=== PATIENT | female | born 1995 | race Caucasian/White ===

== ENCOUNTER → 2017-05-07 10:40 | Outpatient (CLI) | payer MEDICAID, SELFPAY ==
--- NOTE | 2017-05-07 10:45 | US_ITS ---
US transvaginal COMPARISON: None HISTORY: Bilateral pelvic pain for 9 years ,. abnormal cycles TECHNIQUE: Transvaginal ultrasound FINDINGS: The uterus is normal size and shows homogeneous echogenicity. The endometrial echo appears normal. Both ovaries are normal size showing homogeneous echogenicity. There is a moderately large amount of cul-de-sac fluid, possibly there has been a recently ruptured ovarian cyst. IMPRESSION: Cul-de-sac fluid is noted, no other significant pathology noted.
== END ==
PROVIDERS: Family Provider Nurse Practitioner; PCP Nurse Practitioner; Visit Provider Nurse Practitioner Obstetrics & Gynecology
DX: R10.2 Pelvic and perineal pain (principal)
CPT/HCPCS: 76830

== ENCOUNTER → 2018-01-18 13:46 | Outpatient (CLI) | payer MEDICAID, SELFPAY ==
--- NOTE | 2018-01-18 13:54 | XR_ITS ---
XR scoliosis survey CLINICAL INDICATION: ITS.REASON: KYPHOSIS, SCOLIOSIS, BACK PAIN ORDERING PHYSICIAN: Estella Thomas PATIENT AGE: 22 years Comparison: 10/22/2015 FINDINGS: There is a mid upper thoracic scoliosis convex right which measures 17 degrees previously measuring 11 degrees. There is a thoracolumbar curvature convex left measuring 20 degrees previously measuring 7 degrees. No obvious congenital anomalies evident. IMPRESSION: Thoracolumbar scoliosis as described above is slightly worse
== END ==
PROVIDERS: PCP Nurse Practitioner; Visit Provider Nurse Practitioner
DX: M40.209 Unspecified kyphosis, site unspecified (principal); M41.9 Scoliosis, unspecified; M54.9 Dorsalgia, unspecified; M25.561 Pain in right knee; G89.29 Other chronic pain
CPT/HCPCS: 72081

== ENCOUNTER 2018-03-29 14:30 | Outpatient (RCR) | payer MEDICAID, SELFPAY | END 2018-03-29 14:40 | disposition home or self-care (01) | LOC: PT 14:30 | PROVIDERS: Visit Provider Physician Assistant Medical | DX: M41.9 Scoliosis, unspecified (principal); M54.6 Pain in thoracic spine | CPT/HCPCS: 97014; 97016; 97033; 97035; 97110; 97140; 97163; G0283 ==

== ENCOUNTER → 2019-01-06 14:54 | Outpatient (CLI) | payer MEDICAID, SELFPAY ==
--- NOTE | 2019-01-06 14:58 | US_ITS ---
PROCEDURE: US TRANSVAGINAL CLINICAL INDICATION: US T/V- Pelvic/Abdominal Lower pelvic pain with irregular cycles COMPARISON: TRANVAG US transvaginal from 05/07/2017 FINDINGS: UTERUS: Unremarkable measuring 7 x 2.6 x 3.8 cm with a combined endometrial thickness of 4 mm LEFT OVARY: 4.3 x 1.7 cm containing an 8 mm cyst RIGHT OVARY: 3 x 2 cm containing a 2 cm cyst No cul-de-sac fluid IMPRESSION: 2 cm right ovarian cyst otherwise negative pelvic ultrasound Dictated by: Rudy Wilson MD 01/06/2019 17:09 Electronically signed by Rudy Wilson MD in [place] 01/06/2019 17:09
== END ==
PROVIDERS: PCP Nurse Practitioner; Visit Provider Nurse Practitioner Obstetrics & Gynecology
DX: R10.2 Pelvic and perineal pain (principal)
CPT/HCPCS: 76830

== ENCOUNTER → 2019-02-21 12:01 | Outpatient (CLI) | payer MEDICARE, OTHER, SELFPAY ==
[2019-02-22 08:32] LABS: Prolactin 13.2 ng/mL (4.8-23.3)
[2019-02-22 09:59] LABS: Estradiol 95.4 pg/mL (.); FSH 4.1 mIU/mL (.); LH 3.3 mIU/mL (.); Progesterone 10.9 ng/mL (.)
== END ==
PROVIDERS: Visit Provider Nurse Practitioner Obstetrics & Gynecology
DX: N92.6 Irregular menstruation, unspecified (principal)
CPT/HCPCS: 36415; 82670; 83001; 83002; 84144; 84146

== ENCOUNTER → 2019-03-11 09:52 | Outpatient (CLI) | payer MEDICARE, OTHER, SELFPAY ==
--- NOTE | 2019-03-11 09:56 | US_ITS ---
PROCEDURE: US ABDOMEN COMPLETE CLINICAL INDICATION: ABD PAIN,ABD DISTENTION COMPARISON: RUQ US RUQ-(ABD LTD)1ORGAN/QUAD/FU from 10/05/2015 FINDINGS: PANCREAS: Unremarkable. No obvious mass or abnormal fluid collection. No ductal dilatation LIVER: No focal liver lesions demonstrated. Homogeneous echogenicity. No intrahepatic biliary ductal dilatation evident. There is appropriate direction of blood flow within a non dilated portal vein RIGHT KIDNEY: Unremarkable. Normal size and echogenicity. No hydronephrosis LEFT KIDNEY: Unremarkable. Normal size and echogenicity. No hydronephrosis GALLBLADDER: No gallstones, gallbladder wall thickening, pericholecystic fluid, or biliary dilatation. A moderate amount of sludge appears to be present within the gallbladder. AORTA: No evidence of aneurysmal dilatation. SPLEEN: Unremarkable. Normal size and echogenicity ASCITES: None demonstrated. IMPRESSION: Moderate amount of sludge in the gallbladder without definite gallstones or other acute finding. Dictated by: Chevy Morrissey 03/11/2019 10:37 Electronically signed by Chevy Morrissey in [place] 03/11/2019 10:37
== END ==
PROVIDERS: PCP Nurse Practitioner; Visit Provider Nurse Practitioner
DX: R10.84 Generalized abdominal pain (principal); R14.0 Abdominal distension (gaseous)
CPT/HCPCS: 76700

== ENCOUNTER → 2019-03-27 11:49 | Outpatient (CLI) | payer MEDICARE, OTHER, SELFPAY ==
[2019-03-27 13:06] LABS: HCG,Quantitative 0 mIU/mL
== END ==
PROVIDERS: Visit Provider Nurse Practitioner Obstetrics & Gynecology
DX: Z32.00 Encounter for pregnancy test, result unknown (principal); N92.6 Irregular menstruation, unspecified
CPT/HCPCS: 36415; 84702

== ENCOUNTER → 2019-04-02 09:57 | Outpatient (CLI) | payer MEDICARE, OTHER, SELFPAY ==
--- NOTE | 2019-04-02 09:59 | NM_ITS ---
PROCEDURE: NM HEPATOBILIARY W PHARM CLINICAL INDICATION: GB SLUDGE, RUQ PAIN COMPARISON: US ABDOMEN COMPLETE from 03/11/2019 TECHNIQUE: DOSE: 8.19 mCi technetium Choletec and 1 mcg of CCK FINDINGS: Homogeneous activity is present within the hepatic parenchyma. Activity is present in the gallbladder by 10 minutes. Activity is present in the small bowel by 55 minutes. The gallbladder ejection fraction is calculated to be 93 percent. CCK-The patient did not report pain or other symptoms during CCK infusion. IMPRESSION: No evidence of common or cystic duct obstruction with normal gallbladder ejection fraction Dictated by: Rudy Wilson MD 04/02/2019 17:54 Electronically signed by Rudy Wilson MD in [place] 04/02/2019 17:54
== END ==
PROVIDERS: PCP Nurse Practitioner; Visit Provider Nurse Practitioner
DX: K82.8 Other specified diseases of gallbladder (principal)
CPT/HCPCS: 78227; A9537; J2805

== ENCOUNTER → 2019-04-30 14:32 | Outpatient (CLI) | payer MEDICARE, OTHER, SELFPAY ==
[2019-04-30 15:11] LABS: Basophils # 0.1 K/mm3 (0-0.2); Basophils % 0.8 % (0.1-2.0); Eosinophils # 0.3 K/mm3 (0.0-0.4); Eosinophils % 4.7 % (0.1-12.0); Hematocrit 38.3 % (37.0-47.0); Hemoglobin 12.8 g/dL (12.2-16.2); Lymphocytes # 1.7 K/mm3 (0.7-4.5); Lymphocytes % 31.2 % (10-50); Mean Corpuscular HGB Conc 33.5 g/dL (31.8-35.4); Mean Corpuscular Hemoglobin 31.5 pg (27.0-31.2); Mean Corpuscular Volume 93.9 fl (81-99); Mean Platelet Volume 8.7 fl (7.4-10.4); Monocytes # 0.5 K/mm3 (0.1-1.0); Monocytes % 8.4 % (1.7-9.3); Platelet Count 245 K/mm3 (142-424); Red Blood Count 4.07 M/mm3 (4.20-5.40); Red Cell Distribution Width 13.6 % (11.5-17.5); White Blood Count 5.5 K/mm3 (4.8-10.8)
[2019-04-30 16:27] LABS: Anion Gap 16.4 mEq/L (5-15); Blood Urea Nitrogen 8 mg/dl (7-17); Calcium 9.8 mg/dl (8.4-10.2); Carbon Dioxide 23 mmol/L (22.0-30.0); Chloride 104 mmol/L (98-107); Estimated Glomerular Filt Rate 102 ml/min (>60); GFR (African American) 123 ML/MIN (>60); Glucose 92 mg/dl (74-100); Potassium 4.4 mmoL/L (3.5-5.1); Sodium 139 mmol/L (136-145)
[2019-04-30 17:38] LABS: HCG Qualitative, Serum Negative (Negative)
--- NOTE | 2019-05-01 13:57 | P.PN_ITS ---
[facility] Anesthesia Record Part I Intake, IV Amount: 1,600 Estimated blood loss (mL): 10 Urine output (mL): 0 Blood Pressure: 149/71 SaO2: 95 Pulse Rate: 75 Respiratory Rate: 16 Temperature: 98.3 F Patient is:: Drowsy, Stable Stable to PACU at:: 13:50
[2019-05-01 13:58] VITALS: BP 149/71; PULSE 75; RESP 16; TEMP 36.8; O2SAT 95
== END ==
PROVIDERS: Visit Provider Orthopaedic Surgery
DX: Z01.818 Encounter for other preprocedural examination (principal); S62.624D Displaced fracture of middle phalanx of right ring finger, subsequent encounter for fracture with routine healing
CPT/HCPCS: 36415; 80048; 84703; 85025

== ENCOUNTER → 2019-05-13 13:37 | Outpatient (CLI) | payer MEDICARE, OTHER, SELFPAY ==
--- NOTE | 2019-05-13 13:42 | XR_ITS ---
PROCEDURE: XR FINGER RT MIN 2V CLINICAL INDICATION: ORIF RT fourth digit, sx 05/01/2019;out of splint Follow-up ORIF COMPARISON: XR FINGER RT MIN 2V from 04/26/2019 FINDINGS: Two cerclage wires remain in place stabilizing the comminuted fracture of the middle phalanx of the 4th digit with good alignment IMPRESSION: Good alignment prior ORIF middle phalanx 4th digit Dictated by: Rudy Wilson MD 05/13/2019 14:14 Electronically signed by Rudy Wilson MD in [place] 05/13/2019 14:14
== END ==
PROVIDERS: PCP Nurse Practitioner; Visit Provider Orthopaedic Surgery
DX: S62.624D Displaced fracture of middle phalanx of right ring finger, subsequent encounter for fracture with routine healing (principal); Z48.89 Encounter for other specified surgical aftercare
CPT/HCPCS: 73140

== ENCOUNTER → 2019-05-27 13:40 | Outpatient (CLI) | payer MEDICARE, OTHER, SELFPAY ==
--- NOTE | 2019-05-27 13:43 | XR_ITS ---
PROCEDURE: XR FINGER RT MIN 2V CLINICAL INDICATION: sp ORIF RT fourth finger sx 05/01/2019 Follow-up fracture/ORIF COMPARISON: XR FINGER RT MIN 2V from 04/26/2019 XR FINGER RT MIN 2V from 05/13/2019 FINDINGS: Two cerclage wires remain in place along the mid shaft of the comminuted fracture of the middle phalanx of the 4th digit with good alignment. Fracture lines are still visible. Other findings:None. IMPRESSION: No change good alignment status post ORIF comminuted middle phalanx fracture of the 4th digit Dictated by: Rudy Wilson MD 05/27/2019 14:07 Electronically signed by Rudy Wilson MD in [place] 05/27/2019 14:07
== END ==
PROVIDERS: PCP Nurse Practitioner; Visit Provider Orthopaedic Surgery
DX: S62.624D Displaced fracture of middle phalanx of right ring finger, subsequent encounter for fracture with routine healing (principal); Z09 Encounter for follow-up examination after completed treatment for conditions other than malignant neoplasm
CPT/HCPCS: 73140

== ENCOUNTER 2019-05-28 11:41 | Outpatient (RCR) | payer MEDICARE, OTHER, SELFPAY | END 2019-05-28 12:15 | disposition home or self-care (01) | LOC: PT 11:41 | PROVIDERS: Visit Provider Orthopaedic Surgery | DX: M65.831 Other synovitis and tenosynovitis, right forearm (principal) | CPT/HCPCS: 97760 ==

== ENCOUNTER → 2019-06-17 09:26 | Outpatient (CLI) | payer MEDICARE, OTHER, SELFPAY ==
--- NOTE | 2019-06-17 09:33 | XR_ITS ---
PROCEDURE: XR FINGER RT MIN 2V CLINICAL INDICATION: rt 4th digit, sx 05/01/2019 Follow-up surgery COMPARISON: XR FINGER RT MIN 2V from 04/26/2019 XR FINGER RT MIN 2V from 05/13/2019 XR FINGER RT MIN 2V from 05/27/2019 FINDINGS: There are 2 cerclage wires once again noted at the midshaft of the middle phalanx of the 4th digit a. Fracture lines appear somewhat less apparent suggesting early healing. There is good alignment with only minimal dorsal angulation of the distal fracture fragment and no significant displacement The joint spaces are well-preserved. No significant degenerative/arthritic changes. No erosive changes evident. Other findings:None. IMPRESSION: Healing fracture middle phalanx 4th digit status post ORIF with good alignment Dictated by: Rudy Wilson MD 06/17/2019 10:37 Electronically signed by Rudy Wilson MD in [place] 06/17/2019 10:37
== END ==
PROVIDERS: PCP Nurse Practitioner; Visit Provider Orthopaedic Surgery
DX: S62.624D Displaced fracture of middle phalanx of right ring finger, subsequent encounter for fracture with routine healing (principal); Z09 Encounter for follow-up examination after completed treatment for conditions other than malignant neoplasm
CPT/HCPCS: 73140

== ENCOUNTER → 2019-07-15 13:56 | Outpatient (CLI) | payer MEDICARE, OTHER, SELFPAY ==
[2019-07-15 17:29] LABS: HCG,Quantitative 108 mIU/ml (0-5.42)
== END ==
PROVIDERS: Visit Provider Nurse Practitioner Obstetrics & Gynecology
DX: N92.6 Irregular menstruation, unspecified (principal)
CPT/HCPCS: 36415; 84702

== ENCOUNTER 2019-07-25 11:13 | Emergency (ER) | payer MEDICARE, OTHER, SELFPAY ==
[2019-07-25 11:15] VITALS: BP 145/81; PULSE 86; RESP 16; TEMP 37.1; O2SAT 98
--- NOTE | 2019-07-25 11:38 | US_ITS ---
PROCEDURE: US OB TRANSVAGINAL CLINICAL INDICATION: possitive test, pain, bleeding Early with bleeding COMPARISON: US TRANSVAGINAL from 01/06/2019 FINDINGS: There is an intrauterine gestational sac present which measures 12 mm. Yolk sac is noted measuring 3 mm. A pole is not identified. Low level decreased echogenicity is noted anterior to the endometrium measuring 2 x 0.6 cm and may represent an area of subchorionic hemorrhage. The endometrium is thickened at 2 cm. The adnexa are unremarkable. No cul-de-sac fluid evident. Blood flow is present in the ovaries. IMPRESSION: There is an intrauterine gestational sac with a yolk sac but no definite pole. Cannot confirm viability at this time. Suspected subchorionic hemorrhage noted. Recommend follow-up ultrasound as well as correlation with serial beta HCG. Dictated by: Rudy Wilson MD 07/25/2019 14:32 Electronically signed by Rudy Wilson MD in [place] 07/25/2019 14:32
--- NOTE | 2019-07-25 11:39 | HMH.EDGENADL ---
ED Disposition Clinical Impression: Vaginal bleeding during , Threatened in early Disposition: Home, Self-Care Condition on Discharge: Good Additional Instructions: You have been evaluated for vaginal bleeding and . This could be a traditional early or a miscarriage. 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 Take Tylenol for pain. Return to the emergency department for any new or worsening pain, heavy vaginal bleeding, headache, syncope, other concerns. Prescriptions: nitrofurantoin macrocrystaL [Macrodantin 100mg capsule] 100 mg PO BID 5 Days #10 cap Prescription Printed Referrals: Estella Thomas APRN [Primary Care Provider] - Time of Disposition: 12:52 - Critical Care Critical Care Time: No Attestation: On 07/25/19, the high probability of a clinically significant, sudden or life threatening deterioration of the following system(s) required my full and direct attention, intervention and personal management. The time I documented below is in addition to time spent performing reported procedures but includes the following listed in this critical care notation. Medical Decision Making - Matthias Inquiry Pt receiving controlled substance: No Vital Signs: 07/25/19 11:15 Temperature 98.8 F Temperature Source Oral Pulse Rate [Left Radial] 86 Respiratory Rate 16 Blood Pressure [Right Arm] 145/81 H Blood Pressure Mean [Right Arm] 102 Blood Pressure Position [Right Arm] Sitting 02 Sat by Pulse Oximetry 98 Oxygen Delivery Method Room Air - Lab Data Lab Results 07/25/19 11:20: Urine Color Red, Urine Appearance Sl cloudy, Urine pH 6.0, Ur Specific [place] 1.025, Urine Protein 2+, Urine Glucose (UA) Negative, Urine Ketones Negative, Urine Blood 3+, Urine Nitrate Positive, Urine Bilirubin Negative, Urine Urobilinogen 0.2, Ur Leukocyte Esterase Trace, Urine RBC 10-20, Urine WBC 3-5, Ur Squamous Epith Cells 5-10, Urine Bacteria Trace 07/25/19 11:20: Urine HCG, Qual Positive 07/25/19 11:23: WBC 6.5, RBC 4.19 L, Hgb 12.5, Hct 39.0, MCV 93.2, MCH 29.9, MCHC 32.1, RDW 13.8, Plt Count 242, MPV 8.7, Neut % (Auto) 60.6, Lymph % (Auto) 25.8, [place] % (Auto) 8.7, Eos % (Auto) 3.8, Baso % (Auto) 1.0, Neut # (Auto) 4.0, Lymph # (Auto) 1.7, [place] # (Auto) 0.6, Eos # (Auto) 0.3, Baso # (Auto) 0.1 07/25/19 11:23: HCG, Quant [id number] H 07/25/19 11:30: Blood Type B Positive, Antibody Screen Negative Result diagrams: 07/25/19 11:23 Orders (Tests/Meds): ORDERS Category Date Time Status US OB transvaginal Stat Ultrasound 07/25/19 11:38 Ordered Medical Decision Narrative: In summary this is a 24-year-old female presenting to the emergency department with cramping lower abdominal pain and positive test. Patient is overall well-appearing on arrival to the emergency department. Vital signs are stable. Initial systolic blood pressure is 145. Differential diagnoses include threatened , incomplete , implantation bleed, normal intrauterine , ectopic . Plan to obtain CBC, urinalysis, type and screen, test, quantitative hCG, transvaginal ultrasound. Laboratory results are generally unremarkable. No anemia. Patient is blood type O+, does not require RhoGam. Vaginal ultrasound visualizes a gestational sac and what appears to be a subchorionic hemorrhage. No free fluid in the pelvis. No large abnormality within the ovaries or the fallopian tube. No obvious ectopic. Urinalysis shows RBCs and a few white blood cells and bacteria. Patient given prescription for Macrobid. Recommended to take as prescribed. Counseled to follow-up with her primary physician on Sunday for repeat hCG. Counseld that this could be a normal IUP or early miscarriage. Given anticipatory guidance. General Adult HPI - General Chief complaint: Vaginal Bleeding Stated complaint: bleeding Time Seen by Provider: 07/25/19 11:19 Mod
--- NOTE | 2019-07-25 11:39 | PC.NURSE ---
Notified rad of transvaginal US
[2019-07-25 11:45] LABS: Microscopic, Urine URINE MICROSCOPIC (MICROSCOPIC)
[2019-07-25 11:46] LABS: Appearance,Urine SL CLOUDY (Clear); Bilirubin,Urine Negative (Negative); Blood, Urine 3+ (Negative); Color,Urine RED (Yellow); Glucose,Urine (UA) Negative (Negative); Ketones,Urine Negative (Negative); Leukocyte Esterase,Urine TRACE (Negative); Nitrate,Urine POSITIVE (Negative); Protein,Urine 2+ (Negative); Specific Gravity, Urine 1.025 (1.005-1.030); Urobilinogen,Urine 0.2 EU/dl (0.2)
[2019-07-25 11:48] LABS: Basophils # 0.1 K/mm3 (0-0.2); Eosinophils # 0.3 K/mm3 (0.0-0.4); Eosinophils % 3.8 % (0.1-12.0); Hemoglobin 12.5 g/dL (12.2-16.2); Lymphocytes # 1.7 K/mm3 (0.7-4.5); Lymphocytes % 25.8 % (10-50); Mean Corpuscular HGB Conc 32.1 g/dL (31.8-35.4); Mean Corpuscular Hemoglobin 29.9 pg (27.0-31.2); Mean Corpuscular Volume 93.2 fl (81-99); Mean Platelet Volume 8.7 fl (7.4-10.4); Monocytes # 0.6 K/mm3 (0.1-1.0); Monocytes % 8.7 % (1.7-9.3); Neutrophils % 60.6 % (37.0-80.0); Platelet Count 242 K/mm3 (142-424); Red Blood Count 4.19 M/mm3 (4.20-5.40); Red Cell Distribution Width 13.8 % (11.5-17.5); White Blood Count 6.5 K/mm3 (4.8-10.8)
[2019-07-25 11:48] LABS: Urine Pregnancy, HCG Qual. Positive (Negative)
[2019-07-25 11:58] LABS: Bacteria,Urine Trace /lpf
[2019-07-25 12:16] LABS: HCG,Quantitative 4935 mIU/ml (0-5.42)
[2019-07-25 12:58] VITALS: BP 135/74; PULSE 78; RESP 16; TEMP 36.6; O2SAT 98
== END 2019-07-25 12:59 | disposition home or self-care (01) ==
PROVIDERS: Emergency Provider Emergency Medicine; PCP Nurse Practitioner
DX: O20.0 Threatened abortion (principal); F41.8 Other specified anxiety disorders
CPT/HCPCS: 76817; 81001; 81025; 84702; 85025; 86850; 99283

== ENCOUNTER 2019-07-26 21:37 | Emergency (ER) | payer MEDICARE, OTHER, SELFPAY ==
[2019-07-26 21:53] VITALS: BP 122/91; PULSE 87; RESP 18; TEMP 37.2; O2SAT 100
[2019-07-26 22:08] LABS: Basophils # 0.1 K/mm3 (0-0.2); Basophils % 0.6 % (0.1-2.0); Eosinophils # 0.3 K/mm3 (0.0-0.4); Eosinophils % 3.8 % (0.1-12.0); Hemoglobin 11.6 g/dL (12.2-16.2); Lymphocytes # 2.4 K/mm3 (0.7-4.5); Lymphocytes % 27.7 % (10-50); Mean Corpuscular HGB Conc 32.2 g/dL (31.8-35.4); Mean Corpuscular Hemoglobin 29.7 pg (27.0-31.2); Mean Corpuscular Volume 92.5 fl (81-99); Mean Platelet Volume 8.2 fl (7.4-10.4); Monocytes # 0.7 K/mm3 (0.1-1.0); Monocytes % 7.9 % (1.7-9.3); Neutrophils # 5.2 K/mm3 (1.8-7.8); Platelet Count 220 K/mm3 (142-424); Red Blood Count 3.89 M/mm3 (4.20-5.40); Red Cell Distribution Width 13.7 % (11.5-17.5); White Blood Count 8.7 K/mm3 (4.8-10.8)
[2019-07-26 22:12] LABS: HCG Qualitative, Serum Positive (Negative)
[2019-07-26 22:14] LABS: Alanine Aminotransferase 19 U/L (12-78); Albumin Level 5.1 g/dl (3.5-5.0); Albumin/Globulin Ratio 1.6 (1.1-1.8); Alkaline Phosphatase 65 U/L (38-126); Anion Gap 14.9 mEq/L (5-15); Aspartate Amino Transferase 24 U/L (14-36); Bilirubin,Total 0.4 mg/dl (0.2-1.3); Blood Urea Nitrogen 12 mg/dl (7-17); Calcium 9.8 mg/dl (8.4-10.2); Carbon Dioxide 25 mmol/L (22.0-30.0); Chloride 101 mmol/L (98-107); Creatinine Clearance Estimated 86 mL/min (50-200); Estimated Glomerular Filt Rate 87 ml/min (>60); GFR (African American) 105 ML/MIN (>60); Globulin 3.1 g/dL (1.3-3.2); Glucose 100 mg/dl (74-100); Potassium 3.9 mmoL/L (3.5-5.1); Sodium 137 mmol/L (136-145); Total Protein,Serum 8.2 g/dl (6.3-8.2)
--- NOTE | 2019-07-26 22:21 | HMH.EDPREG ---
ED Disposition Clinical Impression: Threatened , Threatened in early Disposition: Home, Self-Care Condition on Discharge: Good Instructions: DI for Vaginal Bleeding Additional Instructions: fluids and see pcp for follow up Referrals: Estella Thomas APRN [Primary Care Provider] - Nikita Villa MD [Staff Physician] - - Critical Care Critical Care Time: No Attestation: On 07/26/19, the high probability of a clinically significant, sudden or life threatening deterioration of the following system(s) required my full and direct attention, intervention and personal management. The time I documented below is in addition to time spent performing reported procedures but includes the following listed in this critical care notation. Medical Decision Making - Medical Records Medical records reviewed: Yes: I reviewed the patient's medical records. - Matthias Inquiry Pt receiving controlled substance: No Vital Signs: 07/26/19 21:53 Temperature 99.0 F Temperature Source Oral Pulse Rate [Left Brachial] 87 Respiratory Rate 18 Blood Pressure [Left Arm] 122/91 H Blood Pressure Mean [Left Arm] 101 Blood Pressure Source [Left Arm] Automatic Cuff Blood Pressure Position [Left Arm] Sitting 02 Sat by Pulse Oximetry 100 Oxygen Delivery Method Room Air - Lab Data Lab results reviewed: Yes: I reviewed the patient's lab results. Lab Results 07/26/19 21:50: WBC 8.7 D, RBC 3.89 L, Hgb 11.6 L, Hct 36.0 L, MCV 92.5, MCH 29.7, MCHC 32.2, RDW 13.7, Plt Count 220, MPV 8.2, Neut % (Auto) 60.0, Lymph % (Auto) 27.7, [place] % (Auto) 7.9, Eos % (Auto) 3.8, Baso % (Auto) 0.6, Neut # (Auto) 5.2, Lymph # (Auto) 2.4, [place] # (Auto) 0.7, Eos # (Auto) 0.3, Baso # (Auto) 0.1 07/26/19 21:50: Sodium 137, Potassium 3.9, Chloride 101, Carbon Dioxide 25, Anion Gap 14.9, BUN 12, Creatinine 0.80, Estimated Creat Clear 86, Estimated GFR 87, Est GFR ( Amer) 105, Glucose 100, Calcium 9.8, Total Bilirubin 0.4, AST 24, ALT 19, Alkaline Phosphatase 65, Total Protein 8.2, Albumin 5.1 H, Globulin 3.1, Albumin/Globulin Ratio 1.6 07/26/19 21:50: Serum HCG, Qual Positive 07/26/19 21:50: HCG, Quant [id number] H Result diagrams: 07/26/19 21:50 07/26/19 21:50 Orders (Tests/Meds): ED MEDICATIONS Generic Name Dose Route Start Last Admin Trade Name Anne PRN Reason Stop Dose Admin Sodium Chloride 1,000 mls @ 999 mls/hr 07/26/19 22:00 07/26/19 22:11 Sod Chlor 0.9% 1000ml Bag IV 07/26/19 23:00 999 mls/hr .[id number] CLAUDIA Administration ORDERS Category Date Time Status Urinalysis and Microscopic Stat Lab 07/26/19 21:53 Ordered - Physician Consults Physician Consulted: kaylee Reason -: Pt condition HPI - General Chief complaint: Vaginal Bleeding Stated complaint: bleeding/ doesn't know how far along Time Seen by Provider: 07/26/19 22:21 Mode of Arrival: Ambulatory Source of Information: Patient, Medical Record Limitations: No Limitations Description of Symptoms (Recalled from ER Triage Doc. by RN): PATIENT STATES SHE IS AND HAS BEEN HAVING VAGINAL BLEEDING AND CRAMPING FOR THE LAST 2 DAYS. SHE STATES WHEN SHE USES THE BATHROOM THE BLOOD POURS OUT . SHE SAID EARLIER TODAY THE BLOOD WAS BROWN IN COLOR, THIS AFTERNOON IT WAS RED-ORANGE IN COLOR. SHE DID HAVE SOME BLEEDING YESTERDAY AND CAME TO THE ER WHERE SHE WAS DIAGNOSED WITH A UTI AND TOLD THAT SHE WAS APPROX 4-6 WEEKS . SHE SAYS THAT BLEEDING STOPPED LAST NIGHT, BUT STARTED AGAIN TODAY. SHE IS SCHEDULED FOR HER FIRST OBGYN APPT ON 08/10 - History of Present Illness HPI Narrative: seen yesterday and chart reviewed - had episode of vag bleeding tonight - 1 pad - now stopped - has u/s yesterday Complaint: vaginal bleeding Onset (ago): hour(s) Consistency: now resolved Location: pelvis Severity: moderate Associated symptoms: denies other symptoms : yes Date of Last Menstrual Period: JUNE 2 (2 DAYS OF SPOTTING) Pren
[2019-07-26 22:46] LABS: HCG,Quantitative 6910 mIU/ml (0-5.42)
--- NOTE | 2019-07-26 23:13 | PC.NURSE ---
paged dr page, return call
[2019-07-26 23:19] VITALS: BP 122/91; PULSE 87; RESP 18; TEMP 37.2; O2SAT 100
== END 2019-07-26 23:29 | disposition home or self-care (01) ==
PROVIDERS: Emergency Provider Emergency Medicine; PCP Nurse Practitioner
DX: O20.0 Threatened abortion (principal); F41.8 Other specified anxiety disorders; Z87.891 Personal history of nicotine dependence
CPT/HCPCS: 80053; 84702; 84703; 85025; 96365; 99282

== ENCOUNTER → 2019-07-28 09:59 | Outpatient (CLI) | payer MEDICARE, OTHER, SELFPAY ==
[2019-07-28 11:56] LABS: HCG,Quantitative 10340 mIU/ml (0-5.42)
== END ==
PROVIDERS: Visit Provider Nurse Practitioner Obstetrics & Gynecology
DX: Z32.00 Encounter for pregnancy test, result unknown (principal)
CPT/HCPCS: 36415; 84702

== ENCOUNTER → 2019-08-01 09:42 | Outpatient (CLI) | payer MEDICARE, OTHER, SELFPAY ==
[2019-08-01 10:23] LABS: Basophils % 0.7 % (0.1-2.0); Eosinophils # 0.1 K/mm3 (0.0-0.4); Eosinophils % 2.5 % (0.1-12.0); Hematocrit 36.2 % (37.0-47.0); Lymphocytes # 1.3 K/mm3 (0.7-4.5); Mean Corpuscular HGB Conc 33.1 g/dL (31.8-35.4); Mean Corpuscular Hemoglobin 30.2 pg (27.0-31.2); Mean Corpuscular Volume 91.2 fl (81-99); Mean Platelet Volume 8.8 fl (7.4-10.4); Monocytes # 0.4 K/mm3 (0.1-1.0); Monocytes % 6.4 % (1.7-9.3); Neutrophils % 68.4 % (37.0-80.0); Platelet Count 221 K/mm3 (142-424); Red Blood Count 3.97 M/mm3 (4.20-5.40); Red Cell Distribution Width 13.7 % (11.5-17.5); White Blood Count 5.8 K/mm3 (4.8-10.8)
[2019-08-01 11:03] LABS: Coronavirus 19 IgG Antibody Negative (Negative); Coronavirus 19 IgM Antibody Negative (Negative)
[2019-08-02 09:28] LABS: HIV Screen 4th Generation wRfx Non Reactive (Non Reactive); Hepatitis B Surface Antigen Negative (Negative); Hepatitis C Antibody <0.1 s/co ratio (0.0-0.9); Rubella Antibodies, IgG <0.90 index (Immune >0.99)
[2019-08-02 12:18] LABS: Rapid Plasma Reagin Ab Titer Non Reactive (NonRea<1:1)
== END ==
PROVIDERS: Visit Provider Nurse Practitioner Obstetrics & Gynecology
DX: Z34.90 Encounter for supervision of normal pregnancy, unspecified, unspecified trimester (principal)
CPT/HCPCS: 36415; 85025; 86328; 86592; 86703; 86762; 86850; 87340; 87380; G0432

== ENCOUNTER → 2019-08-11 13:38 | Outpatient (CLI) | payer MEDICARE, OTHER, SELFPAY ==
--- NOTE | 2019-08-11 13:38 | US_ITS ---
PROCEDURE: US OB TRANSVAGINAL CLINICAL INDICATION: for dates COMPARISON: US OB TRANSVAGINAL from 07/25/2019 FINDINGS: An intrauterine gestational sac is present with a pole with a crown-rump length of 1.34cm correlating to gestational age of 7weeks 5days. heart tones are present with an FHR of 161bpm. Yolk sac is noted. Right ovary measures 29 millimeters x 18 millimeters x 29 millimeters. Left ovary measures 55 millimeters x 20 millimeters x 14 millimeters. There is some free fluid within the pelvic cul-de-sac. IMPRESSION: Viable IUP Estimated due date by Ultrasound is 03/24/2020 Dictated by: Robert Dang 08/11/2019 14:40 Electronically signed by Robert Dang in [place] 08/11/2019 14:40
== END ==
PROVIDERS: PCP Nurse Practitioner; Visit Provider Nurse Practitioner Obstetrics & Gynecology
DX: Z34.90 Encounter for supervision of normal pregnancy, unspecified, unspecified trimester (principal)
CPT/HCPCS: 76817

== ENCOUNTER 2019-08-13 13:30 | Outpatient (RCR) | payer MEDICARE, OTHER, SELFPAY ==
--- NOTE | 2019-06-20 10:51 | HMH.OTOPEV ---
OT Inpatient Evaluation Rehab OT Outpatient Eval Start: 06/20/19 10:22 Freq: Status: Active Protocol: Document 06/20/19 10:22 RMARSHALL (Rec: 06/20/19 10:51 [facility] [id number]) Electronically Signed By Reno Murcia OT 06/20/19 10:22 Outpatient Therapy Subjective History Subjective History Pt is a 24 year old female who reports to therapy for initial evaluation to right ring finger and right elbow. Pt initially fractured her right middle phalanx of 4th digit on 04/25/19 when she was turning a horse out to pasture with a lead rope and the horse reared up on her. Pt required an ORIF of middle phalanx at 4th digit on . 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 Pt also reports pain and tenderness at lateral aspect of right elbow down into forearm. Pt explains she has had pain on and off in the right elbow for over seven years, but since her finger injury her pain at the elbow has increased. Elbow does demonstrate with decreased AROM and strength. 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
--- NOTE | 2019-08-06 14:41 | HMH.RHREAS ---
Rehab Reassessment Rehab OP Re-assessment Start: 08/06/19 13:53 Freq: Status: Active Protocol: Document 08/06/19 13:53 RMARSHALL (Rec: 08/06/19 14:41 RMARSHALL [id number]) Electronically Signed By Reno Murcia OT 08/06/19 13:53 Rehab Re-assessment Subjective Subjective The elbow is no problem. Objective Objective Notes Pt continues to be seen twice a week in order to address right ring finger deficits. Pt was also being seen for right elbow pain, but all probelms have resolved after a few weeks of therapy and at this time she no longer needs the elbow to be treated. Each session pt does receive PROM manual stretching to right ring finger at all joints. Pt also engages in AROM/AAROM/ strengthening exercises to all joints. Pt also receives modalities such as parraffin to decrease pain/inflammation. Assessment Progress Assessment Slower Than Expected Assessment Notes Pt's elbow has met all goals, however pt continues to be limited a right ring finger. Pt still have singificant swelling around the distal phalanx despite being wrapped for edema control each session . However, pt does have minimal pain at right ring finger. Pt shows the same AROM at right finger, which is close to within normal limites. 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 Pt believes she is ~60% better since starting therapy. 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
== END 2019-08-13 13:35 | disposition home or self-care (01) ==
LOC: OT 13:30
PROVIDERS: PCP Nurse Practitioner; Visit Provider Orthopaedic Surgery
DX: S62.624D Displaced fracture of middle phalanx of right ring finger, subsequent encounter for fracture with routine healing (principal)
CPT/HCPCS: 97014; 97018; 97035; 97110; 97140; 97164; 97166; G0283

== ENCOUNTER 2019-09-27 10:22 | Emergency (ER) | payer MEDICARE, OTHER, SELFPAY ==
--- NOTE | 2019-09-27 10:31 | HMH.EDGENADL ---
ED Disposition Clinical Impression: Right thigh pain Disposition: Home, Self-Care Condition on Discharge: Good Instructions: DI for Acute Pain -- Adult Additional Instructions: Follow-up with your PCP. If you have any new, changing, worsening, or concerning symptoms, come back to the emergency department. Referrals: Estella Thomas APRN [Primary Care Provider] - Time of Disposition: 10:53 - Critical Care Critical Care Time: No Attestation: On , the high probability of a clinically significant, sudden or life threatening deterioration of the following system(s) required my full and direct attention, intervention and personal management. The time I documented below is in addition to time spent performing reported procedures but includes the following listed in this critical care notation. Medical Decision Making - Medical Records Medical records reviewed: Yes: I reviewed the patient's medical records. MR Elisa: 4-year-old female who is 14 weeks presents the emergency department with left thigh pain. She arrives to the ED hemodynamically stable, with reassuring vital signs, and looks well on exam. On exam, the left thigh is more in appearance, good strength and sensation throughout the bilateral lower extremities. No redness or swelling. She is nontoxic. She states that she has had issues with her electrolytes in the past. Will check a BMP and reassess. At this time, do not think an x-ray would be helpful as no trauma and full range of motion without tenderness. On reassessment, patient remains well. Electrolytes are normal. I asked her to follow-up with her PCP in the next 1 to 2 days. She was given strict return precautions and discharge instructions and verbalized understanding and agreement to the plan. Safe to discharge. - Matthias Inquiry Pt receiving controlled substance: No Vital Signs: 09/27/19 10:34 Temperature 98.2 F Temperature Source Temporal Artery Scan Pulse Rate [Right] 67 Respiratory Rate 16 Blood Pressure [Right Arm] 119/66 Blood Pressure Mean [Right Arm] 83 Blood Pressure Source [Right Arm] Automatic Cuff Blood Pressure Position [Right Arm] Sitting 02 Sat by Pulse Oximetry 100 Oxygen Delivery Method Room Air - Lab Data Lab Results 09/27/19 11:09: Sodium 135 L, Potassium 4.2, Chloride 105, Carbon Dioxide 23, Anion Gap 11.2, BUN 7, Creatinine 0.60, Estimated Creat Clear 120, Estimated GFR 121, Est GFR ( Amer) 146, Glucose 71 L, Calcium 9.2 Result diagrams: 09/27/19 11:09 General Adult HPI - General Stated complaint: 14 wks preg cramp in thigh Time Seen by Provider: 09/27/19 10:48 - History of Present Illness HPI narrative: 4-year-old female, 14 weeks , presents the emergency department after a cramp in her left thigh. She states that she had what felt like a charley horse in her left anterior thigh last night and she is continued to have some pain. She has not taken anything for the pain, she says that she refuses to take even Tylenol during her . She states that the cramping was so bad that she almost fell. She denies syncope, chest pain, back pain, abdominal pain, dysuria, recent fever chills or illness, difficulties with ambulation. She denies any other associated symptoms or concerns at this time. - Related Data Home Medications Medication Instructions Recorded Confirmed diphenhydramine HCl 25 mg tablet 25 mg PO NEEDED PRN tab 09/04/19 09/27/19 vitamin with calcium 1 tab PO DAILY tab 09/04/19 09/27/19 no.72-iron 27 mg-folic acid 1 mg tablet Allergies Allergy/AdvReac Type Severity Reaction Status Date / Time vancomycin [VANCOMYCIN] Allergy Intermediate RED MAN Verified 09/27/19 10:40 SYNDROME ibuprofen [From Motrin IB] Allergy Mild Ulcers Verified 09/27/19 10:40 [facility] History - Hepatitis A Screen Attestation statement:: This patient has been screened for Hepatitis A risk factors. Me
[2019-09-27 10:34] VITALS: BP 119/66; PULSE 67; RESP 16; TEMP 36.8; O2SAT 100; BMI 20.9
[2019-09-27 11:20] LABS: Chloride 105 mmol/L (98-107); Potassium 4.2 mmoL/L (3.5-5.1); Sodium 135 mmol/L (136-145)
[2019-09-27 11:23] LABS: Anion Gap 11.2 mEq/L (5-15); Blood Urea Nitrogen 7 mg/dl (7-17); Calcium 9.2 mg/dl (8.4-10.2); Carbon Dioxide 23 mmol/L (22.0-30.0); Creatinine Clearance Estimated 120 mL/min (50-200); Estimated Glomerular Filt Rate 121 ml/min (>60); GFR (African American) 146 ML/MIN (>60); Glucose 71 mg/dl (74-100)
[2019-09-27 11:54] VITALS: BP 100/57; PULSE 59; RESP 16; TEMP 36.8; O2SAT 100
== END 2019-09-27 11:55 | disposition home or self-care (01) ==
PROVIDERS: Emergency Provider Emergency Medicine; PCP Nurse Practitioner
DX: M79.651 Pain in right thigh (principal); Z3A.14 14 weeks gestation of pregnancy; Z88.1 Allergy status to other antibiotic agents; F41.8 Other specified anxiety disorders; Z87.891 Personal history of nicotine dependence
CPT/HCPCS: 80048; 99282

== ENCOUNTER → 2019-10-10 13:03 | Outpatient (CLI) | payer MEDICARE, OTHER, SELFPAY ==
[2019-10-15 00:33] LABS: AFP Value 58.2 ng/mL (.); DIA Value 98.53 pg/mL (.); DSR (Second Trimester) 1 IN 10000 (.); Maternal Age At EDD 26.7 yr (.); OSBR Risk 1 IN 2523 (.); Results Report (.); hCG MoM 0.58 (.); hCG Value 29642 mIU/mL (.); uE3 MoM 1.27 (.); uE3 Value 1.22 ng/mL (.)
[2019-10-15 12:11] LABS: Gestat. Age Based On EDD (.)
== END ==
PROVIDERS: Visit Provider Nurse Practitioner Obstetrics & Gynecology
DX: Z34.90 Encounter for supervision of normal pregnancy, unspecified, unspecified trimester (principal)
CPT/HCPCS: 36415; 82106

== ENCOUNTER → 2019-11-05 14:37 | Outpatient (CLI) | payer MEDICARE, OTHER, SELFPAY ==
--- NOTE | 2019-11-05 14:44 | US_ITS ---
PROCEDURE: US OB /MATERNAL DETAIL CLINICAL INDICATION: 20 week gestation COMPARISON: US US OB TRANSVAGINAL from 08/11/2019 FINDINGS: There is a single live fetus in breech presentation. heart body motion noted. Placenta is posterior and grade 1. The cervix is closed measuring 3.5 cm transabdominal. Complete survey performed and was unremarkable on the submitted images as in PACS. No discrete anomalies identified on survey imaging by technologist. Active fetus. Three-vessel cord with satisfactory umbilical cord insertion. 4- chamber heart noted. Survey of brain & ventricles Unremarkable. Face and neck survey unremarkable. Diaphragm and chest views unremarkable. Abdomen: Both kidneys noted and unremarkable. Stomach noted and satisfactory. Spine: Survey of the spine satisfactory with no anomalies identified nor imaged. Both arms and legs noted. Amniotic Fluid: Adequate. Maternal adnexa: No significant findings. Measurements: Average ultrasound age 20weeks 1day. Gestational Age 19weeks 5days Estimated due date by ultrasound age 0203/23/2020. Estimated weight 532g BPD = 19weeks 6days OFD = 20weeks 2days HC = 19weeks 3days AC = 20weeks 5days FL = 20weeks 4days Growth Percentile= 83percent% Heart Rate = 153bpm Cerebellum = 20 weeks 2 days Humerus = 21 weeks 0 days HC/AC is 1.08 CI is 77% FL/BPD is 74% FL/AC is 22% IMPRESSION: Live IUP in breech presentation with an average ultrasound age 20 weeks and 1 day. No obvious anomalies. Please see above for detail Dictated by: Rudy Wilson MD 11/06/2019 11:06 Rudy Wilson MD in [place] 11/06/2019 11:06
== END ==
PROVIDERS: PCP Nurse Practitioner; Visit Provider Nurse Practitioner Obstetrics & Gynecology
DX: Z34.90 Encounter for supervision of normal pregnancy, unspecified, unspecified trimester (principal); Z3A.20 20 weeks gestation of pregnancy
CPT/HCPCS: 76805; 76811

== ENCOUNTER 2019-11-23 16:39 | Outpatient (CLI) | payer MEDICARE, OTHER, SELFPAY ==
[2019-11-23 17:03] VITALS: BP 112/69; PULSE 64; RESP 18; TEMP 36.7; O2SAT 100; BMI 22.1
[2019-11-23 17:21] LABS: Microscopic, Urine URINE MICROSCOPIC (MICROSCOPIC)
[2019-11-23 17:25] LABS: Appearance,Urine CLEAR (Clear); Bilirubin,Urine Negative (Negative); Blood, Urine Negative (Negative); Color,Urine YELLOW (Yellow); Glucose,Urine (UA) Negative (Negative); Ketones,Urine Negative (Negative); Leukocyte Esterase,Urine Negative (Negative); Nitrate,Urine Negative (Negative); Protein,Urine Negative (Negative); Urobilinogen,Urine 0.2 EU/dl (0.2)
[2019-11-23 17:35] LABS: Barbiturates Screen,Urine Negative ng/ml (<200); Benzodiazepines Screen,Urine Negative ng/ml (<200)
[2019-11-23 17:36] LABS: Amphetamine/Metha Screen,Urine Negative ng/ml (<1000); Cannabinoid Screen,Urine Negative ng/ml (<50)
[2019-11-23 17:37] LABS: Cocaine Screen,Urine Negative ng/ml (<300)
[2019-11-23 17:38] LABS: Methadone Screen,Urine Negative ng/ml (<300); Opiate Screen,Urine Negative ng/ml (<300)
[2019-11-23 17:39] LABS: Phencyclidine Screen,Urine Negative ng/ml (<25)
[2019-11-23 17:54] LABS: Fetal Fibronectin (Rapid) Negative (Negative)
[2019-11-23 19:18] LABS: Basophils % 0.3 % (0.1-2.0); Eosinophils # 0.2 K/mm3 (0.0-0.4); Eosinophils % 2.1 % (0.1-12.0); Hematocrit 39.8 % (37.0-47.0); Hemoglobin 13.4 g/dL (12.2-16.2); Lymphocytes # 1.6 K/mm3 (0.7-4.5); Lymphocytes % 20.8 % (10-50); Mean Corpuscular HGB Conc 33.6 g/dL (31.8-35.4); Mean Corpuscular Hemoglobin 34.3 pg (27.0-31.2); Mean Platelet Volume 8.4 fl (7.4-10.4); Monocytes # 0.7 K/mm3 (0.1-1.0); Monocytes % 8.7 % (1.7-9.3); Neutrophils # 5.4 K/mm3 (1.8-7.8); Neutrophils % 68.1 % (37.0-80.0); Platelet Count 172 K/mm3 (142-424); Red Cell Distribution Width 14.8 % (11.5-17.5); White Blood Count 7.9 K/mm3 (4.8-10.8)
[2019-11-23 19:19] LABS: Anion Gap 10.3 mEq/L (5-15); Blood Urea Nitrogen 10 mg/dl (7-17); Calcium 9.4 mg/dl (8.4-10.2); Carbon Dioxide 24 mmol/L (22.0-30.0); Chloride 107 mmol/L (98-107); Creatinine Clearance Estimated 109 mL/min (50-200); Estimated Glomerular Filt Rate 101 ml/min (>60); GFR (African American) 122 ML/MIN (>60); Glucose 88 mg/dl (74-100); Potassium 4.3 mmoL/L (3.5-5.1); Sodium 137 mmol/L (136-145)
[2019-11-23 20:09] LABS: Alanine Aminotransferase 12 U/L (12-78); Albumin Level 3.7 g/dl (3.5-5.0); Alkaline Phosphatase 76 U/L (38-126); Amylase 64 U/L (30-110); Aspartate Amino Transferase 21 U/L (14-36); Bilirubin,Direct 0.1 mg/dl (0.0-0.4); Bilirubin,Indirect 0.1 mg/dL (0.0-0.9); Bilirubin,Total 0.2 mg/dl (0.2-1.3); Bilirubin,Unconjugated 0.1 mg/dL (0.0-1.1); Lipase 64 U/L (23-300); Total Protein,Serum 6.4 g/dl (6.3-8.2)
== END 2019-11-23 20:42 | disposition home or self-care (01) ==
LOC: OBOUT 16:40 → OB 16:43
PROVIDERS: PCP Nurse Practitioner; Visit Provider Obstetrics & Gynecology
DX: O26.892 Other specified pregnancy related conditions, second trimester (principal); Z3A.22 22 weeks gestation of pregnancy; R10.2 Pelvic and perineal pain; Z79.899 Other long term (current) drug therapy
CPT/HCPCS: 59025; 80048; 80076; 80305; 81001; 82150; 82731; 83690; 85025; 96365; 96372; G0463

== ENCOUNTER → 2019-12-26 12:17 | Outpatient (CLI) | payer MEDICARE, OTHER, SELFPAY ==
[2019-12-26 15:02] LABS: Glucose 1 Hour 85 mg/dL (74-100)
[2019-12-26 15:26] LABS: Glucose,Fasting 75 mg/dl (74-100)
== END ==
PROVIDERS: Visit Provider Nurse Practitioner Obstetrics & Gynecology
DX: Z34.90 Encounter for supervision of normal pregnancy, unspecified, unspecified trimester (principal); Z79.899 Other long term (current) drug therapy
CPT/HCPCS: 36415; 82951

== ENCOUNTER → 2020-01-21 18:14 | Outpatient (CLI) | payer MEDICARE, OTHER, SELFPAY ==
[2020-01-21 18:16] LABS: Microscopic, Urine URINE MICROSCOPIC (MICROSCOPIC)
[2020-01-21 19:06] LABS: Appearance,Urine CLEAR (Clear); Bilirubin,Urine Negative (Negative); Blood, Urine Negative (Negative); Color,Urine YELLOW (Yellow); Glucose,Urine (UA) Negative (Negative); Ketones,Urine Negative (Negative); Leukocyte Esterase,Urine Negative (Negative); Nitrate,Urine Negative (Negative); PH,Urine 6.5 (5.0-8.5); Protein,Urine Negative (Negative); Specific Gravity, Urine 1.025 (1.005-1.030); Urobilinogen,Urine 0.2 EU/dl (0.2)
[2020-01-21 19:38] LABS: Amorphous Sediment,Urine 1+ /lpf; WBC,Urine Occasional #/hpf (0-3)
== END ==
PROVIDERS: Visit Provider Nurse Practitioner Obstetrics & Gynecology
DX: Z34.90 Encounter for supervision of normal pregnancy, unspecified, unspecified trimester (principal); Z3A.30 30 weeks gestation of pregnancy
CPT/HCPCS: 81001

== ENCOUNTER 2020-01-24 20:22 | Emergency (ER) | payer MEDICARE, OTHER, SELFPAY ==
[2020-01-24 20:34] VITALS: BP 140/60; PULSE 61; RESP 24; TEMP 37.1; O2SAT 100; BMI 23.4
--- NOTE | 2020-01-24 20:53 | ECG_ITS ---
APPROVED REPORT Exam: Resting ECG HR:58 bpm ECG Measurements Heart Rate 58 AXES KS 126 P 45 QRSd 76 QRS 31 QT 404 T 35 QTc 396 Conclusion Sinus bradycardia with marked sinus arrhythmia Otherwise normal ECG Electronically signed by : Johnathan Fuller, 01/25/2020 19:55:03
[2020-01-24 21:07] LABS: Basophils % 0.3 % (0.1-2.0); Eosinophils # 0.1 K/mm3 (0.0-0.4); Eosinophils % 1.7 % (0.1-12.0); Hemoglobin 12.1 g/dL (12.2-16.2); Lymphocytes # 1.3 K/mm3 (0.7-4.5); Lymphocytes % 19.3 % (10-50); Mean Corpuscular HGB Conc 32.8 g/dL (31.8-35.4); Mean Corpuscular Hemoglobin 34.7 pg (27.0-31.2); Mean Corpuscular Volume 105.8 fl (81-99); Mean Platelet Volume 8.3 fl (7.4-10.4); Monocytes # 0.6 K/mm3 (0.1-1.0); Monocytes % 9.2 % (1.7-9.3); Neutrophils # 4.7 K/mm3 (1.8-7.8); Neutrophils % 69.6 % (37.0-80.0); Platelet Count 148 K/mm3 (142-424); Red Blood Count 3.49 M/mm3 (4.20-5.40); Red Cell Distribution Width 13.6 % (11.5-17.5); White Blood Count 6.8 K/mm3 (4.8-10.8)
[2020-01-24 21:08] LABS: Chloride 106 mmol/L (98-107); Potassium 3.9 mmoL/L (3.5-5.1); Sodium 135 mmol/L (136-145)
[2020-01-24 21:10] LABS: Amylase 46 U/L (30-110); Blood Urea Nitrogen 7 mg/dl (7-17); Creatinine Clearance Estimated 122 mL/min (50-200); Estimated Glomerular Filt Rate 121 ml/min (>60); GFR (African American) 146 ML/MIN (>60)
[2020-01-24 21:11] LABS: Anion Gap 8.9 mEq/L (5-15); Calcium 9.4 mg/dl (8.4-10.2); Carbon Dioxide 24 mmol/L (22.0-30.0); Glucose 86 mg/dl (74-100); Lipase 43 U/L (23-300)
[2020-01-24 21:28] LABS: HCG,Quantitative 10041 mIU/ml (0-5.42)
[2020-01-24 22:06] LABS: Troponin I < 0.01 ng/ml (0.00-0.034)
--- NOTE | 2020-01-24 22:15 | HMH.EDCP ---
ED Disposition Clinical Impression: Atypical chest pain Qualifiers: Weeks of gestation: 31 weeks Qualified Code(s): Z3A.31 - 31 weeks gestation of Disposition: Home, Self-Care Condition on Discharge: Good Instructions: DI for Atypical Chest Pain Additional Instructions: call ob sunday and kyrie as needed Referrals: Estella Thomas APRN [Primary Care Provider] - - Critical Care Critical Care Time: No Attestation: On 01/24/20, the high probability of a clinically significant, sudden or life threatening deterioration of the following system(s) required my full and direct attention, intervention and personal management. The time I documented below is in addition to time spent performing reported procedures but includes the following listed in this critical care notation. Medical Decision Making - Medical Records Medical records reviewed: Yes: I reviewed the patient's medical records. - Matthias Inquiry Pt receiving controlled substance: No Vital Signs: 01/24/20 20:34 01/24/20 22:28 Temperature 98.7 F Temperature Source Oral Pulse Rate [Right Brachial] 61 56 L Respiratory Rate 24 17 Blood Pressure [Right Arm] 140/60 119/86 Blood Pressure Mean [Right Arm] 86 97 Blood Pressure Source [Right Arm] Automatic Cuff Blood Pressure Position [Right Arm] Sitting 02 Sat by Pulse Oximetry 100 99 Oxygen Delivery Method Room Air Room Air - Lab Data Lab results reviewed: Yes: I reviewed the patient's lab results. Lab Results 01/24/20 20:50: WBC 6.8, RBC 3.49 L, Hgb 12.1 L, Hct 37.0, MCV 105.8 H, MCH 34.7 H, MCHC 32.8, RDW 13.6, Plt Count 148, MPV 8.3, Neut % (Auto) 69.6, Lymph % (Auto) 19.3, Bell % (Auto) 9.2, Eos % (Auto) 1.7, Baso % (Auto) 0.3, Neut # (Auto) 4.7, Lymph # (Auto) 1.3, Bell # (Auto) 0.6, Eos # (Auto) 0.1, Baso # (Auto) 0.0 01/24/20 20:50: Sodium 135 L, Potassium 3.9, Chloride 106, Carbon Dioxide 24, Anion Gap 8.9, BUN 7, Creatinine 0.60, Estimated Creat Clear 122, Estimated GFR 121, Est GFR ( Amer) 146, Glucose 86, Calcium 9.4, Amylase 46, Lipase 43, HCG, Quant [id number] H 01/24/20 20:50: Troponin I < 0.01 01/24/20 20:50: Total Bilirubin 0.3, Direct Bilirubin 0.0, Conjugated Bilirubin 0.0, Indirect Bilirubin 0.3, Unconjugated Bilirubin 0.3, AST 33, ALT 20, Alkaline Phosphatase 103, Total Protein 6.5, Albumin 3.6 Result diagrams: 01/24/20 20:50 01/24/20 20:50 Orders (Tests/Meds): ED MEDICATIONS Generic Name Dose Route Start Last Admin Trade Name Freq PRN Reason Stop Dose Admin Sodium Chloride 1,000 mls @ 999 mls/hr 01/24/20 21:00 01/24/20 20:59 Sod Chlor 0.9% 1000ml Bag IV 01/24/20 22:00 999 mls/hr .Q1H1M CLAUDIA Administration Discontinued Medications Generic Name Dose Route Start Last Admin Trade Name Freq PRN Reason Stop Dose Admin Belladonna Alkaloids 60 ml 01/24/20 22:15 01/24/20 22:26 Gi Cocktail 60ml Udc PO 01/24/20 22:16 60 ml ONCE ONE Administration ORDERS Category Date Time Status Chest XR AP view [XR chest AP] Stat Exams 01/24/20 22:18 Ordered Troponin I Q3H Lab 01/25/20 00:30 Ordered Troponin I Q3H Lab 01/25/20 03:30 Ordered Urinalysis and Microscopic Stat Lab 01/24/20 20:51 Ordered - ECG Data Tracing #1 Normal Sinus Rhythm: Yes Ischemic changes: non-specific ST-T wave changes - Physician Consults Physician Consulted: jonh Reason -: Pt condition Chest Pain HPI - General Chief Complaint: Chest Pain Stated Complaint: 31 weeks CP Time Seen by Provider: 01/24/20 22:15 Mode of Arrival: Family Vehicle Source of Information: Patient, Medical Record Limitations: No Limitations Description of Symptoms (Recalled from ER Triage Doc. by RN): patient presents with chest pain; slight soa; stated it began earlier this morning around 0440 and she has tried changing position, warm baths without any relief. 31 weeks preg with no previous complications. fhr 137. - History of Present Illness HPI narrative:
--- NOTE | 2020-01-24 22:18 | XR_ITS ---
PROCEDURE: XR CHEST AP CLINICAL HISTORY: chest pain Left-sided chest pain COMPARISON: CR CXR CHEST(2 VIEWS-NOT PORTABLE) from 11/24/2013 CR CXR CHEST(2 VIEWS-NOT PORTABLE) from 06/13/2015 CR [id number] XR chest portable from 04/04/2018 FINDINGS: The cardiomediastinal silhouette and pulmonary vascularity are within normal limits. The lungs are clear without infiltrates, suspicious nodules, or pleural effusions. There is mild upper thoracic scoliosis convex right. IMPRESSION: No acute findings. Dictated by: Rudy Wilson MD 01/25/2020 05:52 Rudy Wilson MD in [place] 01/25/2020 05:52
[2020-01-24 22:28] VITALS: BP 119/86; PULSE 56; RESP 17; O2SAT 99
[2020-01-24 22:32] LABS: Alanine Aminotransferase 20 U/L (12-78); Aspartate Amino Transferase 33 U/L (14-36); Bilirubin,Unconjugated 0.3 mg/dL (0.0-1.1)
[2020-01-24 22:33] LABS: Albumin Level 3.6 g/dl (3.5-5.0); Alkaline Phosphatase 103 U/L (38-126); Bilirubin,Indirect 0.3 mg/dL (0.0-0.9); Bilirubin,Total 0.3 mg/dl (0.2-1.3); Total Protein,Serum 6.5 g/dl (6.3-8.2)
[2020-01-24 23:17] VITALS: BP 121/74; PULSE 81; RESP 17; TEMP 36.8; O2SAT 98
== END 2020-01-24 23:31 | disposition home or self-care (01) ==
PROVIDERS: Emergency Provider Emergency Medicine; PCP Nurse Practitioner
DX: R07.89 Other chest pain (principal); Z3A.31 31 weeks gestation of pregnancy; F41.8 Other specified anxiety disorders
CPT/HCPCS: 71045; 80048; 80076; 82150; 83690; 84484; 84702; 85025; 93005; 96365; 99283

== ENCOUNTER 2020-02-24 13:14 | Outpatient (CLI) | payer MEDICARE, OTHER, SELFPAY ==
[2020-02-24 13:35] VITALS: BMI 25.8
[2020-02-24 13:36] VITALS: BP 118/76; PULSE 79; RESP 18; TEMP 36.8; O2SAT 95; BMI 25.8
[2020-02-24 13:41] VITALS: BP 118/76; PULSE 79; RESP 18; TEMP 36.8; O2SAT 95
[2020-02-24 13:43] LABS: Microscopic, Urine URINE MICROSCOPIC (MICROSCOPIC)
[2020-02-24 13:48] LABS: Appearance,Urine CLEAR (Clear); Bilirubin,Urine Negative (Negative); Blood, Urine Negative (Negative); Color,Urine YELLOW (Yellow); Glucose,Urine (UA) Negative (Negative); Ketones,Urine Negative (Negative); Leukocyte Esterase,Urine Negative (Negative); Nitrate,Urine Negative (Negative); Protein,Urine Negative (Negative); Specific Gravity, Urine 1.015 (1.005-1.030); Urobilinogen,Urine 0.2 EU/dl (0.2)
[2020-02-24 13:57] LABS: Benzodiazepines Screen,Urine Negative ng/ml (<200)
[2020-02-24 13:58] LABS: Amphetamine/Metha Screen,Urine Negative ng/ml (<1000)
[2020-02-24 13:59] LABS: Barbiturates Screen,Urine Negative ng/ml (<200); Cannabinoid Screen,Urine Negative ng/ml (<50)
[2020-02-24 14:00] LABS: Cocaine Screen,Urine Negative ng/ml (<300)
[2020-02-24 14:01] LABS: Methadone Screen,Urine Negative ng/ml (<300); Opiate Screen,Urine Negative ng/ml (<300)
[2020-02-24 14:02] LABS: Phencyclidine Screen,Urine Negative ng/ml (<25)
[2020-02-24 14:10] LABS: Squamous Epithelial Cell,Urine Occasional #/hpf (0-5)
== END 2020-02-24 14:12 | disposition home or self-care (01) ==
LOC: OBOUT 13:15 → OB 13:16
PROVIDERS: PCP Nurse Practitioner; Visit Provider Nurse Practitioner Obstetrics & Gynecology
DX: O36.8130 Decreased fetal movements, third trimester, not applicable or unspecified (principal); Z3A.35 35 weeks gestation of pregnancy; Z79.899 Other long term (current) drug therapy
CPT/HCPCS: 59025; 80305; 81001; G0463

== ENCOUNTER → 2020-03-03 17:30 | Outpatient (CLI) | payer MEDICARE, OTHER, SELFPAY | PROVIDERS: Visit Provider Nurse Practitioner Obstetrics & Gynecology | DX: Z34.90 Encounter for supervision of normal pregnancy, unspecified, unspecified trimester (principal) | CPT/HCPCS: 86403 ==

== ENCOUNTER → 2020-03-11 13:19 | Outpatient (CLI) | payer MEDICARE, OTHER, SELFPAY ==
--- NOTE | 2020-03-11 13:22 | US_ITS ---
PROCEDURE: US OB BIOPHYSICAL PROFILE CLINICAL INDICATION: sga Evaluate possible small for gestational age TECHNIQUE: FINDINGS: The following parameters are obtained: Average ultrasound age is Average 36weeks 0days estimated due date by ultrasound is 04/08/2020. Estimated weight is 2774g. This is 14th percentile. BPD: 9.85cm OFD: 11.23cm HC: 31.76cm AC: 31.44cm FL: 7.17cm heart rate: 128 bpm. HC/AC: 1.01 Cephalic index: 0.79 FL/BPD: 0.81 FL/AC: 0.23 Amniotic fluid index: 6.6 cm Qualitative AFV: 2 breathing movements: 2 Gross body movements: 2 Tone: 2 Biophysical profile score: 8 The placenta is posterior and grade 3. The cervix is closed. IMPRESSION: Live IUP with an average ultrasound age of 36 weeks 0 days and an estimated weight 2774 g which is 14th percentile. Biophysical profile 8 of 8. Posterior grade 3 placenta. JULIETH is lower normal at 6.6 cm. Dictated by: Rudy Wilson MD 03/12/2020 11:15 Rudy Wilson MD in [place] 03/12/2020 11:15
== END ==
PROVIDERS: PCP Nurse Practitioner; Visit Provider Nurse Practitioner Obstetrics & Gynecology
DX: O36.5990 Maternal care for other known or suspected poor fetal growth, unspecified trimester, not applicable or unspecified (principal)
CPT/HCPCS: 76811; 76816; 76819

== ENCOUNTER 2020-03-12 11:40 | Outpatient (CLI) | payer OTHER, SELFPAY ==
[2020-03-12 12:00] VITALS: BMI 25.4
[2020-03-12 12:29] LABS: Microscopic, Urine URINE MICROSCOPIC (MICROSCOPIC)
[2020-03-12 12:33] LABS: Appearance,Urine CLEAR (Clear); Blood, Urine TRACE-I (Negative); Color,Urine YELLOW (Yellow); Glucose,Urine (UA) Negative (Negative); Ketones,Urine Negative (Negative); Leukocyte Esterase,Urine 2+ (Negative); Nitrate,Urine Negative (Negative); Protein,Urine TRACE (Negative); Specific Gravity, Urine 1.015 (1.005-1.030)
[2020-03-12 12:39] VITALS: BP 118/70; PULSE 58; RESP 16; TEMP 36.8; O2SAT 97; BMI 56.2
[2020-03-12 12:43] LABS: Benzodiazepines Screen,Urine Negative ng/ml (<200); Bilirubin,Urine Negative (Negative)
[2020-03-12 12:44] LABS: Amphetamine/Metha Screen,Urine Negative ng/ml (<1000); Barbiturates Screen,Urine Negative ng/ml (<200)
[2020-03-12 12:45] LABS: Cannabinoid Screen,Urine Negative ng/ml (<50); Methadone Screen,Urine Negative ng/ml (<300)
[2020-03-12 12:46] LABS: Cocaine Screen,Urine Negative ng/ml (<300)
[2020-03-12 12:47] LABS: Opiate Screen,Urine Negative ng/ml (<300); Phencyclidine Screen,Urine Negative ng/ml (<25)
[2020-03-12 12:52] LABS: Bacteria,Urine 1+ /lpf
[2020-03-15 18:32] VITALS: BMI 26.0
== END 2020-03-12 14:02 | disposition home or self-care (01) ==
LOC: OBOUT 11:44 → OB 11:45
PROVIDERS: PCP Nurse Practitioner; Visit Provider Nurse Practitioner Obstetrics & Gynecology
DX: O36.8130 Decreased fetal movements, third trimester, not applicable or unspecified (principal); Z3A.38 38 weeks gestation of pregnancy
CPT/HCPCS: 59025; 80305; 81001; 87086; 96365; G0463

== ENCOUNTER 2020-03-15 18:22 | Inpatient (IN) | payer MEDICARE, OTHER, SELFPAY ==
[2020-03-15 18:38] VITALS: BMI 26.0
[2020-03-15 18:58] VITALS: BP 112/79; PULSE 70; RESP 20; TEMP 37.1; O2SAT 97; BMI 26.0
[2020-03-15 19:16] VITALS: BP 125/64; PULSE 69; RESP 18; TEMP 36.9; O2SAT 96
[2020-03-15 20:24] LABS: Basophils % 0.3 % (0.1-2.0); Eosinophils # 0.1 K/mm3 (0.0-0.4); Eosinophils % 1.4 % (0.1-12.0); Hemoglobin 13.5 g/dL (12.2-16.2); Lymphocytes # 1.7 K/mm3 (0.7-4.5); Lymphocytes % 20.4 % (10-50); Mean Corpuscular Hemoglobin 34.6 pg (27.0-31.2); Mean Corpuscular Volume 104.9 fl (81-99); Mean Platelet Volume 9.8 fl (7.4-10.4); Monocytes # 0.7 K/mm3 (0.1-1.0); Monocytes % 8.3 % (1.7-9.3); Neutrophils # 5.9 K/mm3 (1.8-7.8); Neutrophils % 69.5 % (37.0-80.0); Platelet Count 176 K/mm3 (142-424); Red Blood Count 3.91 M/mm3 (4.20-5.40); Red Cell Distribution Width 13.2 % (11.5-17.5); White Blood Count 8.5 K/mm3 (4.8-10.8)
[2020-03-15 20:55] LABS: Coronavirus 19 IgG Antibody Negative (Negative); Coronavirus 19 IgM Antibody Negative (Negative)
[2020-03-16 04:00] VITALS: BP 139/82; PULSE 65; RESP 16; TEMP 36.3; O2SAT 99
[2020-03-16 07:55] VITALS: BP 135/84; PULSE 60; RESP 18; TEMP 36.6; O2SAT 100
--- NOTE | 2020-03-16 09:10 | HMH.OBAPHP ---
OB - H&P: HPI Antepartum - History of Present Illness Chief complaint: Term , oligohydramnios History of present illness: She is a 24-year-old 2 para 0 aborta 1 who was 38+ weeks gestational age. She was seen in my office and had absolute oligohydramnios with only 1 pocket of 1 cm x 1 cm. As result that she was admitted and she is being induced at term. - History of Present Criteria for establishing EDC:: LMP confirmed by 1st trimester US care: good care Ultrasounds: normal 1st trimester US, normal mid trimester US Obstetrical complications: other Medical complications: none [facility] History I have reviewed the patient's past medical history: Yes Medical History: Reports:: Anxiety, Depression Denies:: Cancer, Diabetes Mellitus Type 1, Diabetes Mellitus Type 2, Hypertension, Internal Pacemaker, MRSA, Seizures *Have you ever received a pneumonia vaccine?: No *Have you received a flu vaccine this season?: No Other Medical History: Reports: Anemia. Denies: Blood Transfusion Reaction Laterality Cases: Left: Arthroscopy Knee, Bilateral: Other Other Surgeries: Yes: No Previous Surgery, Other. No: , Pacemaker Amputation: No Fractures: Yes - *Social History Smoking Status: Former smoker Tobacco Type: cigarettes # Packs/Day (cigarettes): 1 Alcohol Intake: never Alcohol Intake Frequency:: other Substance Use Type: denies use *Occupational Status:: employed Housing: other Household Members: family *Travel in the last 8 weeks: None - Psychiatric History Pschychiatric History:: Reports:: Anxiety, Depression Family Hx:: No significant family history Para: 0 Review of Systems - Review of Systems Review of systems:: pertinent systems reviewed and negative unless documented below Meds Home Medications Medication Instructions Recorded Confirmed Type Ferrous Sulfate 325 mg PO DAILY 03/12/20 03/15/20 History Pnv,Calcium 72/Iron/Folic Acid 1 tab PO DAILY 03/12/20 03/15/20 History [ Vitamin Plus Low Iron] Allergies Allergy/AdvReac Type Severity Reaction Status Date / Time vancomycin [VANCOMYCIN] Allergy Intermediate RED MAN Verified 03/15/20 16:02 SYNDROME ibuprofen [From Motrin IB] Allergy Mild Ulcers Verified 03/15/20 16:02 OB - H&P: Exam - Physical Exam Vital signs: Temp Pulse Resp BP Pulse Ox 97.8 F 60 18 135/84 100 03/16/20 07:55 03/16/20 07:55 03/16/20 07:55 03/16/20 07:55 03/16/20 07:55 - Constitutional no acute distress - Routine HEENT Exam Head: Present: normocephalic Eye: Present: EOMI, PERRL ENT: Present: mucous membranes moist - Routine Neck Exam Present: supple, full ROM - Routine Respiratory Exam Absent: accessory muscle use (good air entry bilaterally), respiratory distress, wheezes, crackles - Routine Cardiovascular Exam Present: RRR. Absent: murmur - Routine Abdominal Exam Present: soft, normoactive bowel sounds. Absent: tenderness, distended, guarding - Routine Rectal Exam Patient deferred: visual exam, digital exam - Routine Exam Patient deferred: external exam, groin exam, perineal exam - Routine Extremities Exam Present: full ROM. Absent: cyanosis, edema - Routine Skin Exam Present: intact. Absent: cyanosis - Routine Neurological Exam Present: alert, oriented X3 - Routine Psychiatric Exam Present: normal affect OB - Results - Labs Labs: Short CBC 03/15/20 Range/Units 19:57 WBC 8.5 (4.8-10.8) K/mm3 Hgb 13.5 (12.2-16.2) g/dL Hct 41.0 (37.0-47.0) % Plt Count 176 (142-424) K/mm3 OB - A/P Antepartum (1) Oligohydramnios antepartum Status: Acute (2) Normal delivery Status: Acute - Additional Plan Planning to breastfeed?: Yes Plan: induction Additional Information:: She has oligohydramnios at term so we will go ahead and deliver her today.
--- NOTE | 2020-03-16 09:12 | HMH.LABNOT ---
Labor Note - Subjective: Date: 03/16/20 Time: 09:12 regular contraction - Objective: NST:: Reactive Cervical Dilation:: 2-3 Effacement:: 75% Station: -1 Membranes: intact - Fetus: Monitoring?: Yes monitoring type:: External - Assessment: Labor progressing?: Yes Cephalopelvic disproportion?: No Patient Problems: All Active Problems Right thigh pain (Acute) Atypical chest pain (Acute) Oligohydramnios antepartum (Acute) Normal delivery (Acute) (Acute) Vaginal bleeding during (Acute) Threatened in early (Acute) - Plan: Anesthesia for epidural?: Yes Continue to labor down?: Yes Plan for ?: No Continue to monitor?: Yes Start pushing?: No
--- NOTE | 2020-03-16 09:46 | HMH.ANESCL ---
[facility] Anesthesia Checklist - Patient Identification Patient Identification: Arm Band - Structural Data Admitted From: Home Planned Operative Procedure/s: labor Consent for Planned Operative Procedure(s) Verified: Yes Verified Documents: History and Physical - Chart Verification Results Verified: CBC - Additional verifications Anesthesia Reactions: No Hx Blood Transfusions: No Blood Transfusion Reaction: No - Anesthesia Plan Anesthesia Risk discussed: Yes Anesthesia Plan: Verified ASA Class: II Anesthesia Type: Epidural [facility] History I have reviewed the patient's past medical history: Yes Medical History: Reports:: Anxiety, Depression Denies:: Cancer, Diabetes Mellitus Type 1, Diabetes Mellitus Type 2, Hypertension, Internal Pacemaker, MRSA, Seizures *Have you ever received a pneumonia vaccine?: No *Have you received a flu vaccine this season?: No Other Medical History: Reports: Anemia. Denies: Blood Transfusion Reaction Anesthesia experience/problems:: none Laterality Cases: Left: Arthroscopy Knee, Bilateral: Other Other Surgeries: Yes: No Previous Surgery, Other. No: , Pacemaker Amputation: No Fractures: Yes - *Social History Smoking Status: Former smoker Tobacco Type: cigarettes # Packs/Day (cigarettes): 1 Alcohol Intake: never Alcohol Intake Frequency:: other Substance Use Type: denies use *Occupational Status:: employed Housing: other Household Members: family *Travel in the last 8 weeks: None - Psychiatric History Pschychiatric History:: Reports:: Anxiety, Depression Family Hx:: No significant family history Para: 0
--- NOTE | 2020-03-16 10:06 | HMH.LABNOT ---
Labor Note - Subjective: Date: 03/16/20 Time: 10:06 regular contraction - Objective: NST:: Reactive Contractions:: every 2-3 minutes Cervical Dilation:: 4 Effacement:: 90% Station: 0 Membranes: artificially ruptured - Fetus: Monitoring?: Yes monitoring type:: External - Assessment: Labor progressing?: Yes Cephalopelvic disproportion?: No Patient Problems: All Active Problems Right thigh pain (Acute) Atypical chest pain (Acute) Oligohydramnios antepartum (Acute) Normal delivery (Acute) (Acute) Vaginal bleeding during (Acute) Threatened in early (Acute) - Plan: Anesthesia for epidural?: Yes Continue to labor down?: Yes Plan for ?: No Continue to monitor?: Yes Start pushing?: No
[2020-03-16 11:29] LABS: Microscopic, Urine URINE MICROSCOPIC (MICROSCOPIC)
[2020-03-16 11:38] LABS: Appearance,Urine CLEAR (Clear); Bilirubin,Urine Negative (Negative); Blood, Urine 1+ (Negative); Color,Urine YELLOW (Yellow); Glucose,Urine (UA) Negative (Negative); Ketones,Urine Negative (Negative); Leukocyte Esterase,Urine Negative (Negative); Nitrate,Urine Negative (Negative); PH,Urine 8.5 (5.0-8.5); Protein,Urine Negative (Negative); Urobilinogen,Urine 0.2 EU/dl (0.2)
[2020-03-16 11:41] LABS: Barbiturates Screen,Urine Negative ng/ml (<200)
[2020-03-16 11:42] LABS: Benzodiazepines Screen,Urine Negative ng/ml (<200)
[2020-03-16 11:43] LABS: Amphetamine/Metha Screen,Urine Negative ng/ml (<1000); Cocaine Screen,Urine Negative ng/ml (<300)
[2020-03-16 11:44] LABS: Cannabinoid Screen,Urine Negative ng/ml (<50); Methadone Screen,Urine Negative ng/ml (<300)
[2020-03-16 11:45] LABS: Opiate Screen,Urine Negative ng/ml (<300)
[2020-03-16 11:46] LABS: Phencyclidine Screen,Urine Negative ng/ml (<25)
[2020-03-16 11:49] VITALS: BP 116/68; PULSE 54; RESP 18; TEMP 36.8; O2SAT 100
[2020-03-16 12:06] LABS: Squamous Epithelial Cell,Urine Occasional #/hpf (0-5); WBC,Urine Occasional #/hpf (0-3)
--- NOTE | 2020-03-16 13:20 | HMH.LABNOT ---
Labor Note - Subjective: Date: 03/16/20 Time: 13:20 regular contraction - Objective: NST:: Reactive Contractions:: every 2-3 minutes Cervical Dilation:: 9-10 Effacement:: 100% Station: +2 Membranes: artificially ruptured - Fetus: Monitoring?: Yes monitoring type:: Internal and External Comment:: I placed a scalp clip - Assessment: Labor progressing?: Yes Cephalopelvic disproportion?: No Patient Problems: All Active Problems Right thigh pain (Acute) Atypical chest pain (Acute) Oligohydramnios antepartum (Acute) Normal delivery (Acute) (Acute) Vaginal bleeding during (Acute) Threatened in early (Acute) - Plan: Anesthesia for epidural?: Yes Continue to labor down?: Yes Plan for ?: No Continue to monitor?: Yes Start pushing?: Yes Continue pushing?: Yes Comment:: We have had her start pushing. She had some prolonged decelerations that have now recovered. We will plan a vaginal delivery.
[2020-03-16 14:20] LABS: Cord Blood PH 7.28 (7.35-7.45)
--- NOTE | 2020-03-16 14:58 | P.PCN_ITS ---
- Delivery Note Delivery Date:: 03/16/20 Delivery Time:: 14:01 Anesthesia Type: Epidural Was labor medically induced?: Yes Induction method: per pitocin protocol Gestational age (weeks): 38 Infant delivered prior to 39 weeks?: Yes Justification for early elective delivery:: Oligohydraminos Gender: Male at 1 minute: 9 at 5 minutes: 9 LAC or MLE?: LAC Delivery Procedure:: She is a 24-year-old 2 para 0 aborta 1 who was 38 weeks gestational age. She had absolute oligohydramnios and as result that we elected to induce her labor at term. She was started on IV oxytocin and under labor epidural progressed to full dila tion. She was pushing and really not making much progress after an hour of pushing. As result of that I elected to place forceps in the direct OA position at station +4. I used Hutchinson forceps with pads. With one long gentle pull I was able to deliver the head. The head was in the direct OA position and I had emptied the bladder with a straight catheter. After delivery the head the anterior shoulder easily delivered followed by the rest the infant's body atraumatically. The baby was vigorous and we allowed the cord to continue to pulsate for 1 minute. The nasopharynx and oropharynx were bulb suctioned. The cord was then doubly clamped and cut and the was placed on the mother's abdomen for further care. We then obtained cord blood as well as cord blood gases. She received IV oxytocin and using gentle traction the cord and countertraction on the fundus I was able to easily deliver the placenta intact. He had a normal three-vessel cord. She had 3rd degree perineal laceration that was repaired with 3-0 Vicryl Rapide suture to the vaginal tissues and superficial perineal tissues. 2-0 Vicryl suture was used for the deep tissues of the perineum. I grasped the anal sphincter with Allis clamps and reapproximated this with interrupted 2-0 PDS suture. 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 Moe and her estimated blood loss was approximately 400 cc. Laceration:: vaginal Placental Delivery Description: Spontaneous
[2020-03-16 16:11] VITALS: BP 130/69; PULSE 45; RESP 18; TEMP 36.7; O2SAT 99
--- NOTE | 2020-03-16 16:30 | ECG_ITS ---
APPROVED REPORT Exam: Resting ECG HR:61 bpm ECG Measurements Heart Rate 61 AXES MI 120 P 58 QRSd 80 QRS 29 QT 414 T 44 QTc 416 Conclusion Sinus rhythm with marked sinus arrhythmia Otherwise normal ECG Electronically signed by : Johnathan Fuller, 03/17/2020 05:55:59
[2020-03-16 20:48] LABS: Hematocrit 35.5 % (37.0-47.0); Hemoglobin 14.2 g/dL (12.2-16.2)
--- NOTE | 2020-03-17 08:34 | HMH.ACPN2 ---
Internal Medicine - PN: Subj *Date: 03/17/20 *Time: 08:34 Interval history: She is doing well. She complains of feeling fatigued. We will get another EKG this morning. She has had episodes of low heart rate. She is still quite sore. She had 1/3 degree perineal laceration. We will continue with ice packs as well as pain medicine. We will start a stool softener as well. Exam Vital signs and Labs for Last 24 Hours: Temp Pulse Resp BP Pulse Ox 98.0 F 45 L 18 130/69 99 03/16/20 16:11 03/16/20 16:11 03/16/20 16:11 03/16/20 16:11 03/16/20 16:11 Laboratory Results - last 24 hr 03/15/20 19:57: Blood Type B Positive, Antibody Screen Negative, Crossmatch (AHG) See Detail 03/16/20 11:15: Urine Color Yellow, Urine Appearance Clear, Urine pH 8.5, Ur Specific [place] 1.020, Urine Protein Negative, Urine Glucose (UA) Negative, Urine Ketones Negative, Urine Blood 1+, Urine Nitrate Negative, Urine Bilirubin Negative, Urine Urobilinogen 0.2, Ur Leukocyte Esterase Negative, Urine RBC 3-5, Urine WBC Occasional, Ur Squamous Epith Cells Occasional 03/16/20 11:15: Urine Opiates Screen Negative, Urine Methadone Screen Negative, Ur Barbituates Screen Negative, Ur Phencyclidine Scrn Negative, Ur Amphetamines Screen Negative, U Benzodiazepines Scrn Negative, Urine Cocaine Screen Negative, U Marijuana (THC) Screen Negative 03/16/20 14:15: Cord ABG pH 7.28 L 03/16/20 20:40: Hgb 14.2, Hct 35.5 L I & O for Last 24 hours: Intake & Output 03/14/20 03/15/20 03/16/20 03/17/20 11:59 11:59 11:59 11:59 Weight 147 lb - Constitutional no acute distress - *Routine HEENT Exam Head: Present: normocephalic Eye: Present: EOMI, PERRL ENT: Present: mucous membranes moist Assessment and Plan (1) Oligohydramnios antepartum Status: Acute Category: Medical Code(s): O41.00X0 - Oligohydramnios, unspecified trimester, not applicable or unspecified (2) Normal delivery Status: Acute Category: Medical Code(s): O80 - Encounter for full-term uncomplicated delivery - Assessment and plan all Dx Assessment and Plan for all problems:: She is doing well though she feels quite fatigued and she said she feels out of sorts. We will get an EKG this morning again and also start a stool softener. She will continue with some pain medicine for now. I told her she can have ice packs as well.
--- NOTE | 2020-03-17 09:03 | ECG_ITS ---
APPROVED REPORT Exam: Resting ECG HR:51 bpm ECG Measurements Heart Rate 51 AXES MD 114 P 47 QRSd 84 QRS 42 QT 408 T 29 QTc 376 Conclusion Sinus bradycardia Otherwise normal ECG Electronically signed by : Johnathan Fuller, 03/18/2020 06:24:45
--- NOTE | 2020-03-17 11:48 | CA_ITS ---
APPROVED REPORT EXAM: Comprehensive 2D, Doppler, and color-flow Echocardiogram Group Account Director: Milagros Paula CRT Ht: 5 ft 3 in Wt: 147lbs BSA: 1.70 BP: 130/69 mmHg Indications: 1 day , bradycardia, palpitations 2D Dimensions LVOT 1.80 cm (M/F) 1.5-2.5 M-Mode Dimensions RVDd 2.45 cm (0.9-2.6) LA Diam 3.67 cm (1.9-4.0) LVDd 4.93 cm (3.5-5.7) Ao Diam 3.00 cm (2.0-3.7) LVDs 2.48 cm (3.5-5.7) IVSd 0.87 cm (0.6-1.1) PWd 0.93 cm (0.6-1.1) EF (Teich) 75.30% EPSs 0.76 cm FS 44.10% EDV (Teich) 106.50 mL ESV (Teich) 26.30 mL LV Diastology E Decel Time 310.00 (160-240 msec) E/A Ratio 3.2 MED E' 11.30 (< 7 cm/sec) MED A' 11.70 cm/s E'/MED E' Ratio 9.38 (>14) LAT E' 18.20 (<10 cm/sec) LAT A' 10.80 cm/s E/LAT E' Ratio 5.82 (>14) Aortic Valve AO Peak GR. 9.10 mmHg Mitral Valve MV E Max Nixon. 106.00 (40-130 cm/s) MV A Velocity 33.00 (40-130 cm/s) E/A Ratio 3.25 MV Decel. Time 310.00 (160-240 ms) MV PHT 91.00 ms Pulmonary Valve PV Peak Velocity 123.00 (50-150 cm/s) RI End VMAX 95.00 cm/s Tricuspid Valve TR P. Velocity 229.00 cm/s RAP Estimate 10.00 mmHg RVSP 31.00 mmHg Left Ventricle Left atrium is normal size, left ventricle is normal size, there is no concentric left ventricular hypertrophy, visually estimated ejection fraction 55% with no regional wall motion abnormality, diastolic parameters are within normal range. Right Ventricle Right atrium and right ventricle are normal size and contractility. Aortic Valve Aortic valve is normal, there is no aortic stenosis or aortic insufficiency. Mitral Valve Mitral valve is normal, there is mild mitral regurgitation. Tricuspid Valve Tricuspid valve is normal, there is trace tricuspid regurgitation. Pulmonic Valve Pulmonic valve is poorly visualized. Great Vessels Aortic root is normal size. Pericardium No significant pericardial effusion noted. Conclusion 1. Normal left ventricular size, preserved left ventricular systolic function, visually estimated ejection fraction 55% with no regional wall motion abnormality, diastolic parameters are within normal range. 2. Mild mitral and trace tricuspid regurgitation. 3. No significant pericardial effusion noted. Electronically signed by : Norm Blanchard, 03/17/2020 17:29:47
--- NOTE | 2020-03-17 11:57 | HMH.CNCARD ---
History of Present Illness Consult date: 03/17/20 Requesting physician: Nikita Villa Chief complaint: Bradycardia Additional Medical History:: 1. Sinus Bradycardia (03/17/20) a. Heart rate 50's bpm. 2. Post (03/16/20) a. Delivered vaginal with Epidural b. Normal vaginal delivery c. 1/ Para 1 3. Dyspnea (03/16/20) a. Hx of Nasal fracture years ago. b. Chronic 4. Tobacco user a. Ex smoker. Quit 9 months ago. 5. Hx of Tachycardia a. Pt had been on Beta luis m b. Stopped Beta lusi m 9 months ago. History of present illness: 24-year-old female presented to [facility] on 03/15/20 to be labor induced. Pt was close to 36-38 weeks . Pt had been labored induced with Pitocin and then was given Epidural block. Pt had normal vaginal delivery with no difficulty. During nursing assessment, pt was noted to have bradycardia with heart rate in the 50's. ECG was performed. Revealed Sinus bradycardia with heart rate of 50bpm. Pt denies chest pain, tightness or pressure. Complains of shortness of breath but stated this is normal for her due to hx of nasal fracture several years ago. Pt stated the shortness of breath is no worse than usual. No swelling of the lower extremities. Pt denies palpitations or dizziness. Pt stated that several years ago she was diagnosed with Tachycardia and was prescribed a beta luis m. Pt stated she stopped the Beta luis m when she found out she was . Unknown family history per pt. Pt was placed in foster care at a young age. Pt is ex-smoker. Quit when she found out she was . No other significant history noted. Pt does have history of depression and anxiety. Discussed plan of care with Dr. Chaudhary. Will have thyroid panel drawn. Obtain Echocardiogram to assess LV function and valve status. Obtain Holter monitor for 7 days due to bradycardia. Please notify cardiology of any changes in pt's condition. Thank you for letting Cardiology participate in the care of this pt. [facility] History I have reviewed the patient's past medical history: Yes Medical History: Reports:: Anxiety, Depression Denies:: Cancer, Diabetes Mellitus Type 1, Diabetes Mellitus Type 2, Hypertension, Internal Pacemaker, MRSA, Seizures *Have you ever received a pneumonia vaccine?: No *Have you received a flu vaccine this season?: No Other Medical History: Reports: Anemia. Denies: Blood Transfusion Reaction Anesthesia experience/problems:: none Laterality Cases: Left: Arthroscopy Knee, Bilateral: Other Other Surgeries: Yes: No Previous Surgery, Other. No: , Pacemaker Amputation: No Fractures: Yes - *Social History Smoking Status: Former smoker Tobacco Type: cigarettes # Packs/Day (cigarettes): 1 Alcohol Intake: never Alcohol Intake Frequency:: other Substance Use Type: denies use *Occupational Status:: employed Housing: other Household Members: family *Travel in the last 8 weeks: None - Psychiatric History Pschychiatric History:: Reports:: Anxiety, Depression Family Hx:: No significant family history Para: 0 Meds Home Medications Medication Instructions Recorded Confirmed Type Ferrous Sulfate 325 mg PO DAILY 03/12/20 03/15/20 History Pnv,Calcium 72/Iron/Folic Acid 1 tab PO DAILY 03/12/20 03/15/20 History [ Vitamin Plus Low Iron] Allergies Allergy/AdvReac Type Severity Reaction Status Date / Time vancomycin [VANCOMYCIN] Allergy Intermediate RED MAN Verified 03/15/20 16:02 SYNDROME ibuprofen [From Motrin IB] Allergy Mild Ulcers Verified 03/15/20 16:02 Exam Vital signs and Labs for Last 24 Hours: Temp Pulse Resp BP Pulse Ox 98.0 F 45 L 18 130/69 99 03/16/20 16:11 03/16/20 16:11 03/16/20 16:11 03/16/20 16:11 03/16/20 16:11 Laboratory Results - last 24 hr 03/15/20 19:57: Blood Type B Positive, Antibody Screen Negative, Crossmatch (AHG) See Detail 03/16/20 11:15: Urine RBC 3-5, Urine WBC Occasio
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
[2020-03-17 12:41] LABS: Chloride 106 mmol/L (98-107); Potassium 3.8 mmoL/L (3.5-5.1); Sodium 136 mmol/L (136-145)
[2020-03-17 12:44] LABS: Anion Gap 7.8 mEq/L (5-15); Blood Urea Nitrogen 5 mg/dl (7-17); Calcium 9.3 mg/dl (8.4-10.2); Carbon Dioxide 26 mmol/L (22.0-30.0); Creatinine Clearance Estimated 128 mL/min (50-200); Estimated Glomerular Filt Rate 101 ml/min (>60); GFR (African American) 122 ML/MIN (>60); Glucose 119 mg/dl (74-100)
[2020-03-17 13:29] LABS: Free Thyroxine Index 2.4 ug/dL (5.93-13.13); T4 (Thyroxine) 10.6 ug/dl (5.53-11.0); Triiodothryronine (T3) Uptake 23 % (23.5-40.5)
[2020-03-17 13:43] LABS: Thyroid Stimulating Hormone 4.24 uIU/mL (0.465-4.68)
--- NOTE | 2020-03-17 18:00 | PC.NURSE ---
Encouraged pt to get up to shower and sitz bath per perineum. Baby taken out to nurse's station.
[2020-03-18 08:10] VITALS: BP 114/84; PULSE 65; RESP 18; TEMP 36.8; O2SAT 100
--- NOTE | 2020-03-18 08:54 | HMH.ACPN2 ---
Internal Medicine - PN: Subj *Date: 03/18/20 *Time: 08:54 Interval history: She is feeling a little better this morning. She did score 20 on her depression score but she does not want to take any antidepressants. She has been on the in the past. She has taken Topamax for her headaches and she would like to go ahead and restart this. She continues to breast-feed. Her heart rate is regular and she says she feels a little better this morning. She is getting a 7-day Holter monitor. She had an EKG that was normal with just sinus bradycardia. I reviewed her echocardiogram and her ejection fraction is 55% and otherwise normal. Her heart rate to palpation is normal sinus rhythm. The rate this morning was around 60. Exam Vital signs and Labs for Last 24 Hours: Temp Pulse Resp BP Pulse Ox 98.2 F 65 18 114/84 100 03/18/20 08:10 03/18/20 08:10 03/18/20 08:10 03/18/20 08:10 03/18/20 08:10 Laboratory Results - last 24 hr 03/17/20 12:14: TSH 4.24, Free T4 Index 2.4 L, Thyroxine (T4) 10.6, T3 Uptake 23 L 03/17/20 12:14: Sodium 136, Potassium 3.8, Chloride 106, Carbon Dioxide 26, Anion Gap 7.8, BUN 5 L, Creatinine 0.70, Estimated Creat Clear 128, Estimated GFR 101, Est GFR ( Amer) 122, Glucose 119 H, Calcium 9.3 I & O for Last 24 hours: Intake & Output 03/15/20 03/16/20 03/17/20 03/18/20 11:59 11:59 11:59 11:59 Weight 147 lb - Constitutional no acute distress - *Routine HEENT Exam Head: Present: normocephalic Eye: Present: EOMI, PERRL ENT: Present: mucous membranes moist Assessment and Plan (1) Oligohydramnios antepartum Status: Acute Category: Medical Code(s): O41.00X0 - Oligohydramnios, unspecified trimester, not applicable or unspecified (2) Normal delivery Status: Acute Category: Medical Code(s): O80 - Encounter for full-term uncomplicated delivery (3) Sinus bradycardia Status: Acute Category: Medical Code(s): R00.1 - Bradycardia, unspecified - Assessment and plan all Dx Assessment and Plan for all problems:: We will get an SARAH panel this morning. She had a thyroid panel that was normal. She has been seen by cardiology. She is getting a 7-day Holter monitor. She did score slightly high on her depression panel but she does not want to take any antidepressants at this point in time. She would like to restart her Topamax since she has chronic headaches. We will continue to observe her for 1 more day. We will get the results of her SARAH. I am leaving town this afternoon and she will be seen by Dr. Osorio tomorrow to be sent home.
[2020-03-18 12:00] VITALS: BP 111/77; PULSE 61; RESP 18; TEMP 36.9; O2SAT 100
--- NOTE | 2020-03-18 14:40 | HMH.PNCARD ---
Subjective Date: 03/18/20 Time: 09:00 Principal diagnosis: Bradycardia Interval history: 24 yo WF in room in [facility]. No chest pain or SOA. Exam Vital signs and Labs for Last 24 Hours: Temp Pulse Resp BP Pulse Ox 98.5 F 61 18 111/77 100 03/18/20 12:00 03/18/20 12:00 03/18/20 12:00 03/18/20 12:00 03/18/20 12:00 I & O for Last 24 hours: Intake & Output 03/16/20 03/17/20 03/18/20 03/19/20 11:59 11:59 11:59 11:59 Weight 147 lb - Constitutional no acute distress - *Routine HEENT Exam Head: Present: normocephalic Eye: Present: EOMI, PERRL ENT: Present: mucous membranes moist - *Routine Neck Exam Present: supple. Absent: lymphadenopathy - *Routine Respiratory Exam Present: CTA bilaterally - *Routine Cardiovascular Exam Present: RRR - *Routine Abdominal Exam Present: soft, normoactive bowel sounds. Absent: tenderness - *Routine Extremities Exam Absent: cyanosis, clubbing, edema - *Routine Skin Exam Present: warm. Absent: rash - *Routine Neurological Exam Present: alert, oriented X3 Progress Note: A&P (1) Oligohydramnios antepartum Status: Acute (2) Normal delivery Status: Acute (3) Sinus bradycardia Status: Acute Assessment and plan: 7 day holter monitor in place. Echo essentially normal. thyroid functions mixed but possibly mild hypothyroidism. Discussed with Dr. Chaudhary (phone conversation with Dr. De Leon, [employer] in [facility]) and will not treat at this time. Nothing further to add. OK for discharge home from cardiology standpoint. Follow up in 10-14 days to review holter results. Assessment and Plan for All Diagnoses:: See above
[2020-03-18 17:00] VITALS: BP 126/96; PULSE 61; RESP 18; TEMP 36.8; O2SAT 100
[2020-03-19 08:30] VITALS: BP 105/79; PULSE 61; RESP 20; TEMP 36.9; O2SAT 98
--- NOTE | 2020-03-19 14:01 | P.DS_ITS ---
General - General Admission date:: 03/15/20 Hospital Course Hospital Course: vaginal delivery complicated by 3rd degree laceration intrapartum and bradycardia, with no current findings to explain vital signs internal medicine and cardiology consults obtained, and cardiac holter monitor placed alarm security or surveillance monitor planned for 7 days and she will f/u with cardiology in 2 weeks from a /obstetric standpoint, she is doing well lochia less than menses mild pain with perineal laceration Rhogam Administration: Not Indicated Objective Vital signs: Temp Pulse Resp BP Pulse Ox 98.4 F 61 20 105/79 L 98 03/19/20 08:30 03/19/20 08:30 03/19/20 08:30 03/19/20 08:30 03/19/20 08:30 Narrative: CONSTITUTIONAL: no acute distress HEENT: mucous membranes moist PULMONARY: breathing unlabored without audible wheezes CV: no tachycardia or visible JVD; normal LE peripheral pulses ABD: soft, NT/ND, no guarding : fundus firm at/below umbilicus SKIN: no visible rash or lesions EXT: 1+ edema LEs NEURO: alert/oriented, no altered mental status PSYCH: appropriate mood and demeanor without visible anxiety/depression Results Labs on day of discharge: Labs from last 24 hours 03/15/20 19:57 Crossmatch (AHG) See Detail DS: Diagnosis - Discharge Diagnosis (1) Oligohydramnios antepartum Status: Acute (2) Normal delivery Status: Acute (3) Sinus bradycardia Status: Acute Discharge Plan - Patient Discharge Instructions ACTIVITY: Continue current activity DIET: regular diet Additional Instructions: No strenuous activity/heaving lifting, nothing in the vagina for 6 weeks, no dr iving while taking prescription narcotics. Patient Instructions: Depression, Labor and Delivery, Vaginal , Hemorrhage, DI for Ambulatory Cardiac Monitoring, DI for Pre- eclampsia, DI for Bradycardia, [facility] Post Discharge Instructions, Preventing the Spread of Coronavirus Discharge Instructions - Follow up Plan Follow up with: Nikita Villa MD [Primary Care Provider] - 04/02/20 9:30 am Meliton Chaudhary MD [Staff Physician] - 03/31/20 9:30 am Disposition: Home, Self-Half-Way Medications: Home Medications Medication Instructions Recorded Confirmed Type Ferrous Sulfate 325 mg PO DAILY 03/12/20 03/15/20 History Pnv,Calcium 72/Iron/Folic Acid 1 tab PO DAILY 03/12/20 03/15/20 History [ Vitamin Plus Low Iron] Oxycodone HCl [OxyIR 5mg tablet] 5 mg PO Q6HP PRN #15 tablet 03/19/20 Rx Prescriptions/Medication Reconciliation: New Oxycodone HCl [OxyIR 5mg tablet] 5 mg PO Q6HP PRN #15 tablet PRN Reason: Moderate Pain Acetaminophen [Acetaminophen 325mg tab] 650 mg PO Q4HP PRN tablet PRN Reason: Mild Pain Continued Pnv,Calcium 72/Iron/Folic Acid [ Vitamin Plus Low Iron] 1 tab PO DAILY Ferrous Sulfate 325 mg PO DAILY - Problem Reconciliation Problems Reviewed?: Yes
[2020-03-19 14:55] LABS: Anti-Centromere B Antibodies <0.2 AI (0.0-0.9); Anti-Jo-1 <0.2 AI (0.0-0.9); Anti-Smith Antibody <0.2 AI (0.0-0.9); Antichromatin Antibodies <0.2 AI (0.0-0.9); Antiscleroderma-70 Antibodies <0.2 AI (0.0-0.9); RNP Antibodies 0.2 AI (0.0-0.9); Sjogren's Anti-SS-A <0.2 AI (0.0-0.9); Sjogren's Anti-SS-B <0.2 AI (0.0-0.9)
[2020-03-19 15:34] LABS: Anti-DNA (DS) Ab Qn <1 IU/mL (0-9)
== END 2020-03-19 16:40 | disposition home or self-care (01) | DRG 768 ==
PROVIDERS: Urology; Admitting Provider Nurse Practitioner Obstetrics & Gynecology; PCP Nurse Practitioner Obstetrics & Gynecology; Visit Provider Nurse Practitioner Obstetrics & Gynecology
DX: O41.03X0 Oligohydramnios, third trimester, not applicable or unspecified (principal); Z37.0 Single live birth; O70.20 Third degree perineal laceration during delivery, unspecified; Z3A.38 38 weeks gestation of pregnancy; O62.2 Other uterine inertia; O66.5 Attempted application of vacuum extractor and forceps; O99.893 Other specified diseases and conditions complicating puerperium; R00.1 Bradycardia, unspecified
CPT/HCPCS: 59409; 36415; 59025; 80048; 80305; 81001; 82800; 84436; 84443; 84479; 85014; 85018; 85025; 86225; 86235; 86328; 86850; 87086; 90707; 93005; 93270; 93306; 94761; 96365; G0283; G0463; J2405

== ENCOUNTER → 2020-04-15 06:08 | Outpatient (CLI) | payer MEDICARE, OTHER, SELFPAY ==
[2020-04-15 06:46] VITALS: BMI 22.6
[2020-04-15 07:10] VITALS: BP 112/67; PULSE 55; RESP 18; TEMP 36.2; O2SAT 98
--- NOTE | 2020-04-15 07:32 | CT_ITS ---
PROCEDURE: CT ANGIO CORONARY ARTERY CLINCAL INDICATION: chest pain Bradycardia COMPARISON: CT ABDPELW/O CT ABD PELVIS W/O CONTRAST from 06/13/2015 TECHNIQUE: IV Contrast: 115ml Isovue 370 Gated axial images obtained with sagittal and coronal reformats. All CT scans at the facility use one or more dose reduction, viz: automated exposure control, ma/kV adjustment per patient size (including targeted exams where dose is matched to indication, i.e. head), or iterative reconstruction technique. The patient did not require any medication for bradycardia FINDINGS: The origin of the coronary arteries is normal with no variant anatomy. The left main, lad, diagonals, circumflex, and op too small arge in all are unremarkable. The right coronary artery has an unremarkable appearance. The origin is as expected. The RCA gives rise to posterior lateral branch of the left ventricle and PDA. Blood supply to the inferior wall is co-dominant. There is no evidence of myocardial bridging. There is a tricuspid aortic valve. There is a persistent area of decreased enhancement in the medial aspect of the spleen. While this could be related to differential phase of perfusion, 1 cannot exclude the possibility of a splenic lesion. Dedicated CT of the abdomen without and with contrast with 3 phase imaging may provide further evaluation. This area measures approximately 2.6 cm. IMPRESSION: 1. Negative CT coronary arteries. No evidence of anatomic variation. No plaque or coronary artery stenosis evident. No evidence of myocardial bridging. 2. 2.6 cm perfusion defect in the medial aspect of the spleen possibly due to variation in splenic perfusion. Cannot exclude underlying lesion. Dedicated CT of the abdomen without and with contrast with delayed imaging may provide further evaluation. Dictated by: Rudy Wilson MD 04/16/2020 11:36 Rudy Wilson MD in [facility] 04/16/2020 11:36
== END ==
PROVIDERS: PCP Nurse Practitioner; Visit Provider Nurse Practitioner Family
DX: R00.1 Bradycardia, unspecified (principal); R06.00 Dyspnea, unspecified; R07.89 Other chest pain
CPT/HCPCS: 75574; Q9967

== ENCOUNTER → 2020-06-28 13:06 | Outpatient (CLI) | payer MEDICARE, OTHER, SELFPAY ==
--- NOTE | 2020-06-28 13:09 | XR_ITS ---
PROCEDURE: XR CERVICAL SPINE W FLEX/EXT CLINICAL INDICATION: neck pain, chronic COMPARISON: No exams were available for comparison FINDINGS: No acute fractures or traumatic subluxation. The cervical spine alignment and vertebral body heights are maintained. Bone density is normal. The C1-2 alignment is unremarkable. Flexion and extension views demonstrate no evidence of instability. No significant degenerative changes. Prevertebral soft tissues and the visualized lung apices are clear. IMPRESSION: No acute abnormality. No evidence of instability in flexion and extension views. Dictated by: Halina Galvan 06/28/2020 15:46 Halina Galvan in [facility] 06/28/2020 15:46
== END ==
PROVIDERS: PCP Family Medicine; Visit Provider Specialist
DX: R51.9 Headache, unspecified (principal)
CPT/HCPCS: 72052

== ENCOUNTER → 2020-07-06 16:22 | Outpatient (CLI) | payer MEDICARE, OTHER, SELFPAY ==
--- NOTE | 2020-07-06 16:23 | MR_ITS ---
PROCEDURE INFORMATION: Exam: MR Head Without Contrast Exam date and time: 07/06/2020 4:23 PM Age: 25 years old Clinical indication: Pain; Headache; Migraine; With aura; Does respond to medication; Additional info: Daily headaches. Migraine headaches for 13yrs. Occipital pain to right eye. Migraine with aura. No prior. TECHNIQUE: Imaging protocol: MR of the head without contrast. COMPARISON: SINUS CT SINUS (MAX-FACIAL W/O CONT) 03/31/2016 2:51 PM FINDINGS: Brain: No restricted diffusion within the brain to suggest an acute infarct. 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 The hippocampi are normal in signal intensity and size, without mesial temporal sclerosis. No significant cerebral white matter disease. No cerebral edema. Cerebral ventricles: No ventriculomegaly. Pituitary gland and sella: Nonspecific heterogeneous signal intensity of the pituitary gland on FLAIR imaging. Evaluation of the pituitary is limited. A small pituitary lesion is considered. Bones/joints: There is diffuse nonspecific T1 hypointensity of the skull. This can be associated with red marrow reconversion and marrow hyperplasia, although additional pathology cannot be excluded. Paranasal sinuses: Mucosal thickening of the bilateral maxillary sinuses, sphenoid sinuses, and ethmoid air cells. Mucosal thickening of the left frontal sinus. Mastoid air cells: No mastoid effusion. Orbital cavity: Limited by artifact. No visualized acute intraorbital abnormality. Soft tissues: Unremarkable, as visualized. IMPRESSION: 1. No acute infarct. 2. Small pineal cyst. 3. Nonspecific heterogeneous signal intensity of the pituitary gland on FLAIR imaging. A small pituitary lesion is considered. A follow-up pituitary MRI with/without contrast is recommended, as clinically indicated. 4. Paranasal sinus disease. 5. Additional findings described above.
== END ==
PROVIDERS: PCP Family Medicine; Visit Provider Specialist
DX: G43.711 Chronic migraine without aura, intractable, with status migrainosus (principal)
CPT/HCPCS: 70551

== ENCOUNTER → 2020-07-20 10:12 | Outpatient (CLI) | payer MEDICARE, OTHER, SELFPAY ==
--- NOTE | 2020-07-20 10:12 | MR_ITS ---
PROCEDURE INFORMATION: Exam: MR Head Without and With Contrast, Sella Exam date and time: 07/20/2020 10:12 AM Age: 25 years old Clinical indication: Abnormal findings; Abnormal radiologic findings of head/skull; Not specified; Patient HX: Abnormal mri 07-06-20. Migraine headaches for 13yrs. Occipital pain to right eye. Migraine with aura. 12ml prohance injected; Additional info: Abnormal finding on brain mri TECHNIQUE: Imaging protocol: MR of the head without and with intravenous contrast. Exam focused on the sella. Contrast material: PROHANCE; Contrast volume: 12 ml; Contrast route: IV; COMPARISON: MR HEAD/BRAIN WO CON 07/06/2020 5:03 PM FINDINGS: Brain: Unremarkable. No acute infarct. No significant white matter disease. No edema. Cerebral ventricles: Unremarkable. No Ventriculomegaly. Pituitary gland and sella: Unremarkable. Pituitary gland is normal. Bones/joints: Unremarkable. IMPRESSION: Unremarkable sella.
== END ==
PROVIDERS: PCP Family Medicine; Visit Provider Specialist
DX: E23.7 Disorder of pituitary gland, unspecified (principal)
CPT/HCPCS: 70553; A9576

== ENCOUNTER 2020-07-27 11:00 | Outpatient (RCR) | payer MEDICARE, OTHER, SELFPAY ==
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
--- NOTE | 2020-07-20 15:45 | HMH.RHREAS ---
Rehab Reassessment Rehab OP Re-assessment Start: 07/20/20 15:39 Freq: Status: Active Protocol: Document 07/20/20 15:40 BRE (Rec: 07/20/20 15:45 PHOROLIVIA [id number]) Electronically Signed By Timbo Bhatti, PT 07/20/20 15:40 Rehab Re-assessment Subjective Subjective Pt reports she has been feeling much betetr overall with less instances of headache and migraine. However , she underwent an MRI earlier today which has significantly increased her pain today. Currently pain is 8/10. Objective Objective Notes Cervical AROM (in deg): Flex= 0-55, Ext= 0-45, R SB= 0-40, L SB= 0-40, R Rot= 0-50, L Rot= 0-65. Assessment Progress Assessment Progressing as Expected Assessment Notes Pt has shown significant improvements in all cervical ROM measurements. Most importantly, she is have much less instances of migraine headache. Cervical musculature remains tight throughout, but it beginning to loosen. Patient goals met ST,2,3,4 Goals Not Met LT,2,3,4,5 Revised Goals none Plan Plan Continue per initial POC. Frequency of Therapy 2-3 x/wk Duration of therapy 8 wks Time and Billing Re-Eval Time 15 Re-Eval Billing Units 0 PHYSICIAN CERTIFICATION: I certify the specified therapy services for Becca Jimenez are required, authorized, and reviewed every 30 days.
== END 2020-07-27 11:05 | disposition home or self-care (01) ==
LOC: PT 11:00
PROVIDERS: PCP Family Medicine; Visit Provider Specialist
DX: G43.711 Chronic migraine without aura, intractable, with status migrainosus (principal)
CPT/HCPCS: 97010; 97012; 97014; 97035; 97110; 97140; 97163; 97164; G0283

== ENCOUNTER 2020-10-09 14:00 | Emergency (ER) | payer MEDICARE, OTHER, SELFPAY ==
--- NOTE | 2020-10-09 14:07 | XR_ITS ---
PROCEDURE INFORMATION: Exam: XR Right Knee Exam date and time: 10/09/2020 2:07 PM Age: 25 years old Clinical indication: Patient HX: Right knee pain and swelling that began today TECHNIQUE: Imaging protocol: XR Right knee. Views: 3 views. COMPARISON: CR [id number] 04/03/2014 11:42 AM FINDINGS: Bones/joints: There is no evidence of acute fracture. There is no evidence of joint malalignment or dislocation. Soft tissues: There are no soft tissue masses or fluid collections. IMPRESSION: 1. No evidence of acute fracture. 2. No evidence of acute dislocation.
[2020-10-09 14:20] VITALS: BP 123/74; PULSE 79; RESP 16; TEMP 36.6; O2SAT 100; BMI 22.4
[2020-10-09 14:48] VITALS: BP 123/74; PULSE 79; RESP 16; TEMP 36.6; O2SAT 100
--- NOTE | 2020-10-09 15:04 | HMH.EDUTC ---
[facility] Disposition Clinical Impression: Knee pain Qualifiers: Chronicity: unspecified Laterality: right Qualified Code(s): M25.561 - Pain in right knee Disposition: Home, Self-Care Condition on Discharge: Good Instructions: How to Use Crutches, How to Apply an Bryon Wrap, DI for Knee Pain Additional Instructions: Follow up immediately if any worsening of swelling or pain Go straight to ER if any life threatening symptoms or any worsening of swelling for further evaluation and testing Follow up with Family Doctor for further evaluation and treatment Use crutches to get around and rest and elevate the leg If swelling in or around knee gets any worse go straight to ER as discussed in [facility] Return if needed Over the counter ibuprofen if you can take it if not Tylenol Referrals: Johnathan Moe MD [Primary Care Provider] - As needed Time of Disposition: 15:20 Medical Decision Making - Matthias Inquiry Pt receiving controlled substance: No Matthias was queried for this patient: No Vital Signs: 10/09/20 14:20 10/09/20 14:48 Temperature 97.9 F 97.9 F Temperature Source Oral Pulse Rate 79 Pulse Rate [Right Brachial] 79 Respiratory Rate 16 16 Blood Pressure 123/74 Blood Pressure [Right Arm] 123/74 Blood Pressure Mean [Right Arm] 90 Blood Pressure Source [Right Arm] Automatic Cuff Blood Pressure Position [Right Arm] Sitting 02 Sat by Pulse Oximetry 100 Oxygen Delivery Method Room Air - Radiology Data #1 Image(s): Knee Image Reviewed: Yes I have reviewed radiologist's interpretation IMPRESSION: 1. No evidence of acute fracture. 2. No evidence of acute dislocation. Medical Decision Narrative: Patient denies injury Discussed with patient and recommended transfer to the ED for further examination and CT of area due to swelling on sides and back of knee and patient declined States that she wanted to go home and she would follow up if it got any worse [facility] HPI - General Stated complaint: Swollen R knee no accident Time Seen by Provider: 10/09/20 15:00 Mode of Arrival: Ambulatory Source of Information: Patient Limitations: No Limitations Description of Symptoms (Recalled from Triage Doc. 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 State that started having pain in right knee on the side and behind her knee States that she has not done anything to hurt it that she is aware of but she was worried that it may have been her sotomayor cyst acting up and she had to have surgery on the other knee for this States that she noticed it was starting to swell some and hurts when she walks on it - Related Data Home Medications Medication Instructions Recorded Confirmed Ferrous Sulfate 325 mg PO DAILY 03/12/20 08/09/20 topiramate 100 mg tablet 100 mg PO BID tab 06/21/20 08/09/20 paroxetine HCl 20 mg tablet tab PO 08/09/20 08/09/20 prazosin 1 mg capsule 1 mg PO cap 08/09/20 08/09/20 quetiapine 100 mg tablet 100 mg PO tab 08/09/20 08/09/20 Previous Rx's Medication Instructions Recorded galcanezumab-gnlm 120 mg/mL 120 mg SQ QMONTH #1 ml 07/22/20 subcutaneous pen injector rizatriptan 10 mg disintegrating 10 mg PO ONCE PRN #10 tab 07/22/20 tablet levonorgestrel-ethinyl estradiol 1 tab PO DAILY #28 tab 08/09/20 0.1 mg-20 mcg tablet Allergies Allergy/AdvReac Type Severity Reaction Status Date / Time vancomycin [VANCOMYCIN] Allergy Intermediate RED MAN Verified 08/09/20 09:43 SYNDROME ibuprofen [From Motrin IB] Allergy Mild Ulcers Verified 08/09/20 09:43 - Worker's Comp Is this a Worker's Comp case?: No [facility] History - Hepatitis A Scree
== END 2020-10-09 15:25 | disposition home or self-care (01) ==
PROVIDERS: Emergency Provider Nurse Practitioner; PCP Family Medicine
DX: M25.561 Pain in right knee (principal); F41.8 Other specified anxiety disorders; F17.210 Nicotine dependence, cigarettes, uncomplicated
CPT/HCPCS: 73562; 99202; G0463

== ENCOUNTER 2020-10-10 22:35 | Emergency (ER) | payer MEDICARE, OTHER, SELFPAY ==
[2020-10-10 22:36] VITALS: BP 138/76; PULSE 89; RESP 18; TEMP 36.8; O2SAT 99; BMI 22.4
--- NOTE | 2020-10-10 23:20 | HMH.EDEXTP ---
ED Disposition Clinical Impression: Tejeda's cyst of knee Qualifiers: Laterality: right Qualified Code(s): M71.21 - Synovial cyst of popliteal space [Tejeda], right knee Disposition: Home, Self-Care Condition on Discharge: Good Instructions: DI for Tejeda Cyst Additional Instructions: call pcp in am Referrals: Johnathan Moe MD [Primary Care Provider] - - Critical Care Critical Care Time: No Attestation: On 10/10/20, the high probability of a clinically significant, sudden or life threatening deterioration of the following system(s) required my full and direct attention, intervention and personal management. The time I documented below is in addition to time spent performing reported procedures but includes the following listed in this critical care notation. Medical Decision Making - Medical Records Medical records reviewed: Yes: I reviewed the patient's medical records. - Matthias Inquiry Pt receiving controlled substance: No Vital Signs: 10/10/20 22:36 Temperature 98.2 F Temperature Source Oral Pulse Rate [Right] 89 Respiratory Rate 18 Blood Pressure [Right Arm] 138/76 Blood Pressure Mean [Right Arm] 96 02 Sat by Pulse Oximetry 99 - Lab Data Lab results reviewed: Yes: I reviewed the patient's lab results. Orders (Tests/Meds): ED MEDICATIONS Discontinued Medications Generic Name Dose Route Start Last Admin Trade Name Freq PRN Reason Stop Dose Admin Acetaminophen/Codeine Phosphate 1 garret 10/10/20 23:49 10/10/20 23:52 Acetaminophen 300mg W/Codeine 30mg Take Home Pack (6) PO 10/10/20 23:50 1 garret ONCE ONE Administration Medical Decision Narrative: clinical bakers cyst with no clinical evid of cellulitis or dvt and no bruit Extremity Problem HPI - General Chief complaint: Extremity Injury, Lower Stated complaint: swelling r leg Time Seen by Provider: 10/10/20 23:20 Mode of Arrival: Ambulatory Source of Information: Patient, Medical Record Limitations: No Limitations Description of Symptoms (Recalled from ER Triage Doc. by RN): pt states was seen in [facility] 10/09 for same problem and xray was performed. pt c/o rt knee pain that radiates down the leg and unable to bear weight - History of Present Illness HPI Narrative: pt with rt post knee pain which has been progressive over the last few days - was seen in the [facility] and had neg xray - has hx of bakers cyst - MD Complaint: joint swelling Onset (ago): day(s) Location: lower extremity Exacerbating factors: range of motion, weight bearing, walking Associated symptoms: denies other symptoms - Related Data Home Medications Medication Instructions Recorded Confirmed Ferrous Sulfate 325 mg PO DAILY 03/12/20 08/09/20 topiramate 100 mg tablet 100 mg PO BID tab 06/21/20 08/09/20 paroxetine HCl 20 mg tablet tab PO 08/09/20 08/09/20 prazosin 1 mg capsule 1 mg PO cap 08/09/20 08/09/20 quetiapine 100 mg tablet 100 mg PO tab 08/09/20 08/09/20 Previous Rx's Medication Instructions Recorded galcanezumab-gnlm 120 mg/mL 120 mg SQ QMONTH #1 ml 07/22/20 subcutaneous pen injector rizatriptan 10 mg disintegrating 10 mg PO ONCE PRN #10 tab 07/22/20 tablet levonorgestrel-ethinyl estradiol 1 tab PO DAILY #28 tab 08/09/20 0.1 mg-20 mcg tablet Allergies Allergy/AdvReac Type Severity Reaction Status Date / Time vancomycin [VANCOMYCIN] Allergy Intermediate RED MAN Verified 08/09/20 09:43 SYNDROME ibuprofen [From Motrin IB] Allergy Mild Ulcers Verified 08/09/20 09:43 [facility] History - Hepatitis A Screen Drug use history?: No High risk sexual behaviors?: No History of sexually transmitted infection?: No Currently employed?: No Childcare worker?: No Do you have indoor plumbing?: Yes Do you have electricity?: Yes Attestation statement:: This patient has been screened for Hepatitis A risk factors. I have reviewed the patient's past medical history: Yes Medical History: Reports:: Anxiety, Arrhythmia, Depression, Mi
--- NOTE | 2020-10-10 23:30 | PC.NURSE ---
paged Dr. Galvan at this time
[2020-10-11 00:02] VITALS: BP 128/72; PULSE 89; RESP 18; TEMP 36.8; O2SAT 99
== END 2020-10-11 00:08 | disposition home or self-care (01) ==
PROVIDERS: Emergency Provider Emergency Medicine; PCP Family Medicine
DX: M71.21 Synovial cyst of popliteal space [Baker], right knee (principal); F41.8 Other specified anxiety disorders; G43.709 Chronic migraine without aura, not intractable, without status migrainosus; F17.210 Nicotine dependence, cigarettes, uncomplicated
CPT/HCPCS: 99281

== ENCOUNTER 2020-10-11 08:13 | Emergency (ER) | payer MEDICARE, OTHER, SELFPAY ==
[2020-10-11 08:14] VITALS: BP 107/63; PULSE 63; RESP 18; TEMP 36.5; O2SAT 98; BMI 22.4
--- NOTE | 2020-10-11 08:23 | CA_ITS ---
APPROVED REPORT Right Lower Extremity Venous Study for DVT. Baseball Hand Sewer: AARON Indications Lower Extremity Pain: Right bakers cyst Vein Imaging CFV (R): compressive, spontaneous, phasic, augmentation SFJ (R): compressive, spontaneous, phasic, augmentation FEM (R): compressive, spontaneous, phasic, augmentation POP (R): compressive, spontaneous, phasic, augmentation DFV (R): compressive, spontaneous, phasic, augmentation PTV (R): compressive, spontaneous, phasic, augmentation GSV (R): compressive, spontaneous, phasic, augmentation SSV (R): compressive, spontaneous, phasic, augmentation Peroneals (R):compressive, spontaneous, phasic, augmentation GAS (R): compressive, spontaneous, phasic, augmentation Findings Color flow duplex demonstrates no evidence of DVT of the following right lower extremity Veins:Common Femoral Vein, Femoral Vein, Posterior Tibial Veins, Popliteal Vein, Peroneal Veins, Deep Femoral Vein. Non-vascularized complex cystic structure visualized in the right popliteal fossa measuring approximately 5.4 cm. Negative for DVT. Conclusion Non-vascularized complex cystic structure visualized in the right popliteal fossa measuring approximately 5.4 cm c/w complex Tejeda's cyst Negative for DVT. Electronically signed by : Rduy Wilson MD 10/11/2020 09:57:04
[2020-10-11 08:37] VITALS: BP 96/67; PULSE 69; O2SAT 98
--- NOTE | 2020-10-11 08:38 | PC.NURSE ---
Patient requested to take Tordal, even with the ibuprofen allergy. Patient reports ibuprofen makes her feel nauseated.
--- NOTE | 2020-10-11 08:42 | HMH.EDEXTP ---
ED Disposition Clinical Impression: Tejeda's cyst of knee Qualifiers: Laterality: right Qualified Code(s): M71.21 - Synovial cyst of popliteal space [Tejeda], right knee Disposition: Home, Self-Care Condition on Discharge: Good Instructions: DI for Tejeda Cyst Prescriptions: Hydrocod/Acet 5/325 mg [[place] 5/325mg tablet] 1 tab PO Q6HP PRN #10 tab PRN Reason: Moderate Pain Transmission Status: Sent to [facility] Referrals: Johnathan Moe MD [Primary Care Provider] - Kamari Galvan MD [Staff Physician] - 10/12/20 - Critical Care Critical Care Time: No Attestation: On 10/11/20, the high probability of a clinically significant, sudden or life threatening deterioration of the following system(s) required my full and direct attention, intervention and personal management. The time I documented below is in addition to time spent performing reported procedures but includes the following listed in this critical care notation. Medical Decision Making - Medical Records Medical records reviewed: Yes: I reviewed the patient's medical records. - Matthias Inquiry Pt receiving controlled substance: No Vital Signs: 10/11/20 08:14 10/11/20 08:37 10/11/20 09:00 Temperature 97.7 F Temperature Source Oral Pulse Rate 69 52 L Pulse Rate [Right] 63 Respiratory Rate 18 18 Blood Pressure 96/67 L 102/70 L Blood Pressure [Right Arm] 107/63 L Blood Pressure Mean 76 72 Blood Pressure Mean [Right Arm] 77 02 Sat by Pulse Oximetry 98 98 98 Oxygen Delivery Method Room Air - Lab Data Lab Results 10/11/20 08:32: WBC 4.2 L, RBC 4.11 L, Hgb 13.4, Hct 40.9, MCV 99.7 H, MCH 32.5 H, MCHC 32.6, RDW 12.5, Plt Count 243, MPV 8.9, Neut % (Auto) 52.4, Lymph % (Auto) 32.5, [place] % (Auto) 8.6, Eos % (Auto) 5.0, Baso % (Auto) 1.4, Neut # (Auto) 2.2, Lymph # (Auto) 1.4, [place] # (Auto) 0.4, Eos # (Auto) 0.2, Baso # (Auto) 0.1 10/11/20 08:32: Sodium 140, Potassium 4.0, Chloride 106, Carbon Dioxide 27, Anion Gap 11.0, BUN 10, Creatinine 0.80, Estimated Creat Clear 96, Estimated GFR 86, Est GFR ( Amer) 104, Glucose 87, Calcium 9.1, Total Bilirubin 0.5, AST 25, ALT 15, Alkaline Phosphatase 60, Total Protein 6.9, Albumin 4.3, Globulin 2.6, Albumin/Globulin Ratio 1.7 Result diagrams: 10/11/20 08:32 10/11/20 08:32 Orders (Tests/Meds): ED MEDICATIONS Discontinued Medications Generic Name Dose Route Start Last Admin Trade Name Freq PRN Reason Stop Dose Admin Ketorolac Tromethamine 30 mg 10/11/20 08:41 10/11/20 08:54 Ketorolac 30mg/Ml Vial IV 10/11/20 08:42 30 mg ONCE ONE Administration Morphine Sulfate 4 mg 10/11/20 08:23 10/11/20 08:36 Morphine 4mg/Ml Syringe IV 10/11/20 08:24 Not Given ONCE ONE Ondansetron HCl 4 mg 10/11/20 08:23 10/11/20 08:54 Ondansetron 4mg/2ml Vial IV 10/11/20 08:24 4 mg ONCE ONE Administration - US Data US Images: Lower Extremity ED US Reviewed: Yes: I have reviewed the patient's US results, I have viewed radiologist's interpretation Findings Narrative: Conclusion Non-vascularized complex cystic structure visualized in the right popliteal fossa measuring approximately 5.4 cm c/w complex Tejeda's cyst Negative for DVT. - Reevaluation(s) Time: 10:31 Reevaluation #1: On reevaluation, the patient is feeling much better. Pain is improved. Ultrasound findings were consistent with a complex Tejeda's cyst. I did speak to orthopedic surgery on-call, Dr. Galvan. He was notified about the patient. He requested the patient follow-up with him in the clinic. Patient be discharged with analgesics. Given strict return precautions. Verbalized understanding. Medical Decision Narrative: 25-year-old female presenting with some swelling behind the right knee. Findings are consistent with a Tejeda's cyst. Ultrasound will be obtained. Extremity Problem HPI - General Chief complaint: Extremity Injury, Lower Stated complaint: right knee pain Joselo
[2020-10-11 08:43] LABS: Basophils # 0.1 K/mm3 (0-0.2); Basophils % 1.4 % (0.1-2.0); Eosinophils # 0.2 K/mm3 (0.0-0.4); Hematocrit 40.9 % (37.0-47.0); Hemoglobin 13.4 g/dL (12.2-16.2); Lymphocytes # 1.4 K/mm3 (0.7-4.5); Lymphocytes % 32.5 % (10-50); Mean Corpuscular HGB Conc 32.6 g/dL (31.8-35.4); Mean Corpuscular Hemoglobin 32.5 pg (27.0-31.2); Mean Corpuscular Volume 99.7 fl (81-99); Mean Platelet Volume 8.9 fl (7.4-10.4); Monocytes # 0.4 K/mm3 (0.1-1.0); Monocytes % 8.6 % (1.7-9.3); Neutrophils # 2.2 K/mm3 (1.8-7.8); Neutrophils % 52.4 % (37.0-80.0); Platelet Count 243 K/mm3 (142-424); Red Blood Count 4.11 M/mm3 (4.20-5.40); Red Cell Distribution Width 12.5 % (11.5-17.5); White Blood Count 4.2 K/mm3 (4.8-10.8)
[2020-10-11 08:44] LABS: Chloride 106 mmol/L (98-107)
[2020-10-11 08:45] LABS: Sodium 140 mmol/L (136-145)
[2020-10-11 08:47] LABS: Alanine Aminotransferase 15 U/L (12-78); Alkaline Phosphatase 60 U/L (38-126); Aspartate Amino Transferase 25 U/L (14-36); Bilirubin,Total 0.5 mg/dl (0.2-1.3); Blood Urea Nitrogen 10 mg/dl (7-17); Creatinine Clearance Estimated 96 mL/min (50-200); Estimated Glomerular Filt Rate 86 ml/min (>60); GFR (African American) 104 ML/MIN (>60)
[2020-10-11 08:48] LABS: Albumin Level 4.3 g/dl (3.5-5.0); Albumin/Globulin Ratio 1.7 (1.1-1.8); Calcium 9.1 mg/dl (8.4-10.2); Carbon Dioxide 27 mmol/L (22.0-30.0); Globulin 2.6 g/dL (1.3-3.2); Glucose 87 mg/dl (74-100); Total Protein,Serum 6.9 g/dl (6.3-8.2)
[2020-10-11 09:00] VITALS: BP 102/70; PULSE 52; RESP 18; O2SAT 98
--- NOTE | 2020-10-11 10:03 | PC.NURSE ---
message left for Dr Galvan to call us with OR
[2020-10-11 10:15] VITALS: BP 105/71; PULSE 63; RESP 18; TEMP 36.8; O2SAT 98
== END 2020-10-11 10:55 | disposition home or self-care (01) ==
PROVIDERS: Emergency Medicine; Emergency Provider Emergency Medicine; PCP Family Medicine
DX: M71.21 Synovial cyst of popliteal space [Baker], right knee (principal); M79.661 Pain in right lower leg; Z88.1 Allergy status to other antibiotic agents; Z88.6 Allergy status to analgesic agent; F41.9 Anxiety disorder, unspecified; F32.9 Major depressive disorder, single episode, unspecified; I49.9 Cardiac arrhythmia, unspecified; Z86.14 Personal history of Methicillin resistant Staphylococcus aureus infection; Z72.0 Tobacco use
CPT/HCPCS: 80053; 85025; 93971; 99282; J2405

== ENCOUNTER → 2020-11-11 14:56 | Outpatient (CLI) | payer MEDICARE, OTHER, SELFPAY ==
--- NOTE | 2020-11-11 14:57 | MR_ITS ---
PROCEDURE: MR KNEE RT WO CON CLINICAL INDICATION: evaluate for a mensical tear Right knee instability COMPARISON: CR XR KNEE RT 3V from 10/09/2020 TECHNIQUE: Routine multiplanar multi echo sequences are performed without gadolinium enhancement. FINDINGS: The cruciate ligaments have an unremarkable appearance. Collateral ligaments an unremarkable appearance. No meniscal tear evident. Unremarkable bone marrow signal intensity. No fracture or dislocation. The patellar tendon and quadriceps tendon appear intact. Patellar cartilage is preserved. Suprapatellar effusion is noted. There is a large complex Tejeda's cyst measuring 9 cm cephalad caudad 2.3 cm AP and 4 cm transverse. The cyst contains internal septations and debris. Fluid signal is present along the medial aspect of the proximal tibia and surrounding the semi tendinosis tendon consistent with rupture of the Tejeda's cyst. The inferior margin of the soft tissue fluid is below the image field. Subcutaneous edema is noted posterior medially in the proximal leg. IMPRESSION: 1. No evidence of internal derangement. 2. Large complex Tejeda's cyst with fluid dissection into the soft tissues of the proximal leg medially consistent with rupture of the cyst. Complex fluid also noted in the suprapatellar region. Dictated by: Rudy Wilson MD 11/12/2020 08:17 Rudy Wilson MD in [place] 11/12/2020 08:17
== END ==
PROVIDERS: PCP Family Medicine; Visit Provider Orthopaedic Surgery
DX: M25.561 Pain in right knee (principal)
CPT/HCPCS: 73721

== ENCOUNTER 2020-12-19 19:19 | Emergency (ER) | payer MEDICARE, OTHER, SELFPAY ==
[2020-12-19 19:27] VITALS: BP 144/79; PULSE 87; RESP 17; TEMP 36.5; O2SAT 99; BMI 22.1
[2020-12-19 19:31] VITALS: BMI 23.1
[2020-12-19 19:35] LABS: Microscopic, Urine URINE MICROSCOPIC (MICROSCOPIC)
[2020-12-19 19:38] LABS: Basophils # 0.1 K/mm3 (0-0.2); Basophils % 0.9 % (0.1-2.0); Eosinophils # 0.1 K/mm3 (0.0-0.4); Hematocrit 40.5 % (37.0-47.0); Hemoglobin 13.3 g/dL (12.2-16.2); Lymphocytes # 2.3 K/mm3 (0.7-4.5); Mean Corpuscular HGB Conc 32.8 g/dL (31.8-35.4); Mean Corpuscular Hemoglobin 31.8 pg (27.0-31.2); Mean Corpuscular Volume 97.1 fl (81-99); Mean Platelet Volume 8.9 fl (7.4-10.4); Monocytes # 0.5 K/mm3 (0.1-1.0); Monocytes % 7.7 % (1.7-9.3); Neutrophils # 4.1 K/mm3 (1.8-7.8); Neutrophils % 57.4 % (37.0-80.0); Platelet Count 294 K/mm3 (142-424); Red Blood Count 4.17 M/mm3 (4.20-5.40); Red Cell Distribution Width 12.8 % (11.5-17.5); White Blood Count 7.1 K/mm3 (4.8-10.8)
[2020-12-19 19:40] LABS: Appearance,Urine SL CLOUDY (Clear); Bilirubin,Urine Negative (Negative); Blood, Urine TRACE-I (Negative); Color,Urine YELLOW (Yellow); Glucose,Urine (UA) Negative (Negative); Ketones,Urine Negative (Negative); Leukocyte Esterase,Urine 1+ (Negative); Nitrate,Urine Negative (Negative); PH,Urine 6.5 (5.0-8.5); Protein,Urine Negative (Negative); Specific Gravity, Urine >= 1.030 (1.005-1.030)
[2020-12-19 19:44] LABS: Alanine Aminotransferase 16 U/L (12-78); Albumin/Globulin Ratio 1.6 (1.1-1.8); Alkaline Phosphatase 71 U/L (38-126); Aspartate Amino Transferase 24 U/L (14-36); Bilirubin,Total 0.3 mg/dl (0.2-1.3); Blood Urea Nitrogen 6 mg/dl (7-17); Calcium 9.7 mg/dl (8.4-10.2); Creatinine Clearance Estimated 136 mL/min (50-200); Estimated Glomerular Filt Rate 120 ml/min (>60); GFR (African American) 145 ML/MIN (>60); Globulin 3.2 g/dL (1.3-3.2); Glucose 114 mg/dl (74-100); Lipase 91 U/L (23-300); Potassium 3.5 mmoL/L (3.5-5.1); Sodium 138 mmol/L (136-145); Total Protein,Serum 8.2 g/dl (6.3-8.2); Urine Pregnancy, HCG Qual. Positive (Negative)
[2020-12-19 19:45] LABS: Amylase 77 U/L (30-110)
[2020-12-19 19:46] LABS: Anion Gap 15.5 mEq/L (5-15); Bacteria,Urine 1+ /lpf; Carbon Dioxide 22 mmol/L (22.0-30.0); Chloride 104 mmol/L (98-107); RBC,Urine Occasional #/hpf (0-3)
[2020-12-19 20:01] LABS: HCG,Quantitative 1154 mIU/ml (0-5.42)
--- NOTE | 2020-12-19 20:13 | US_ITS ---
PROCEDURE INFORMATION: Exam: US , Transvaginal Exam date and time: 12/19/2020 8:13 PM Age: 25 years old Clinical indication: Other: Rlq pain; Gestational age or lmp: Lmp thru 11/25/2020; ; Additional info: , abd pain rlq TECHNIQUE: Imaging protocol: Real-time transvaginal obstetrical ultrasound of the maternal pelvis with image documentation. Transvaginal imaging was used for better evaluation of the fetus, adnexa, and/or cervix. COMPARISON: US OB TRANSVAGINAL 08/11/2019 1:56 PM FINDINGS: Last menstrual period: LMP 03/31/2020. Gestation: Gestational sac is not visualized. MATERNAL: Uterus: Uterus has normal sonographic appearance measuring 7.2 x 4.7 x 5.3 cm. Right adnexa: Right ovary is normal sonographic appearance measuring 3.1 x 1.5 x 1.5 cm. Mild hyperemia. Normal Doppler waveforms. No suspicious adnexal mass. Left adnexa: The left ovary is normal sonographic appearance measuring 2.6 x 1.6 x 1.5 cm. Normal color Doppler waveforms. No suspicious adnexal mass. Intraperitoneal space: No free fluid. Other findings: Provided beta hCG 1154. IMPRESSION: Imaging findings are concerning for of unknown location. Recommend correlation with beta HCG and follow-up ultrasound as clinically indicated.
--- NOTE | 2020-12-19 20:15 | HMH.EDGENADL ---
ED Disposition Clinical Impression: Abdominal pain Qualifiers: Abdominal location: lower abdomen, unspecified Qualified Code(s): R10.30 - Lower abdominal pain, unspecified Disposition: Home, Self-Care Condition on Discharge: Good Instructions: DI for Acute Abdominal Pain Additional Instructions: Take Keflex as prescribed for UTI. Follow-up in 48 hours for repeat quantitative beta-hCG and repeat ultrasound. Return to the emergency department for any new or worsening symptoms. Prescriptions: cephALEXin [cephALEXin 500mg capsule*] 500 mg PO BID 7 Days #14 cap Transmission Status: Pending to [facility] Referrals: Johnathan Moe MD [Primary Care Provider] - - Critical Care Critical Care Time: No Attestation: On 12/19/20, the high probability of a clinically significant, sudden or life threatening deterioration of the following system(s) required my full and direct attention, intervention and personal management. The time I documented below is in addition to time spent performing reported procedures but includes the following listed in this critical care notation. Medical Decision Making - Matthias Inquiry Pt receiving controlled substance: No Vital Signs: 12/19/20 19:27 Temperature 97.7 F Temperature Source Oral Pulse Rate [Right Brachial] 87 Respiratory Rate 17 Blood Pressure [Right Arm] 144/79 H Blood Pressure Mean [Right Arm] 100 Blood Pressure Source [Right Arm] Automatic Cuff Blood Pressure Position [Right Arm] Sitting 02 Sat by Pulse Oximetry 99 Oxygen Delivery Method Room Air - Lab Data Lab Results 12/19/20 19:31: Urine Color Yellow, Urine Appearance Sl cloudy, Urine pH 6.5, Ur Specific [place] >= 1.030, Urine Protein Negative, Urine Glucose (UA) Negative, Urine Ketones Negative, Urine Blood Trace-i, Urine Nitrate Negative, Urine Bilirubin Negative, Urine Urobilinogen 1.0, Ur Leukocyte Esterase 1+ A, Urine RBC Occasional, Urine WBC 5-10, Ur Squamous Epith Cells 3-5, Urine Bacteria 1+ 12/19/20 19:31: WBC 7.1, RBC 4.17 L, Hgb 13.3, Hct 40.5, MCV 97.1, MCH 31.8 H, MCHC 32.8, RDW 12.8, Plt Count 294, MPV 8.9, Neut % (Auto) 57.4, Lymph % (Auto) 32.0, [place] % (Auto) 7.7, Eos % (Auto) 2.0, Baso % (Auto) 0.9, Neut # (Auto) 4.1, Lymph # (Auto) 2.3, [place] # (Auto) 0.5, Eos # (Auto) 0.1, Baso # (Auto) 0.1 12/19/20 19:31: Urine HCG, Qual Positive 12/19/20 19:31: Sodium 138, Potassium 3.5, Chloride 104, Carbon Dioxide 22, Anion Gap 15.5 H, BUN 6 L, Creatinine 0.60, Estimated Creat Clear 136, Estimated GFR 120, Est GFR ( Amer) 145, Glucose 114 H, Calcium 9.7, Total Bilirubin 0.3, AST 24, ALT 16, Alkaline Phosphatase 71, Total Protein 8.2, Albumin 5.0, Globulin 3.2, Albumin/Globulin Ratio 1.6, Amylase 77, Lipase 91, HCG, Quant 1154 H 12/19/20 19:31: C-Reactive Protein 0.5 Result diagrams: 12/19/20 19:31 12/19/20 19:31 Orders (Tests/Meds): ED MEDICATIONS Generic Name Dose Route Start Last Admin Trade Name Freq PRN Reason Stop Dose Admin Sodium Chloride 500 mls @ 999 mls/hr 12/19/20 21:00 12/19/20 21:11 Sod Chlor 0.9% 1000ml Bag IV 12/19/20 21:30 999 mls/hr .Q31M CLAUDIA Administration Discontinued Medications Generic Name Dose Route Start Last Admin Trade Name Freq PRN Reason Stop Dose Admin Acetaminophen 1,000 mg 12/19/20 20:59 12/19/20 21:11 Acetaminophen 500mg Tab PO 12/19/20 21:00 1,000 mg ONCE ONE Administration Ondansetron HCl 4 mg 12/19/20 20:59 12/19/20 21:11 Ondansetron 4mg Odt SL 12/19/20 21:00 4 mg ONCE ONE Administration ORDERS Category Date Time Status Urine Culture Stat Micro 12/19/20 19:31 Received Medical Decision Narrative: In summary this is a 25 year old female who presents to the ED with abdominal pain after a positive test. Differential diagnosis includes ectopic , UTI, appendicitis, IUP, spontaneous . Given this plan to obtain CBC, CMP, CRP, UA, test. test positive to quantitativ
[2020-12-19 20:41] LABS: C-Reactive Protein 0.5 mg/L (0-4)
[2020-12-19 21:43] VITALS: BP 117/54; PULSE 100; RESP 17; TEMP 36.5; O2SAT 98
== END 2020-12-19 21:46 | disposition home or self-care (01) ==
PROVIDERS: Student in an Organized Health Care Education/Training Program; Emergency Provider Emergency Medicine; PCP Family Medicine
DX: R10.30 Lower abdominal pain, unspecified (principal); Z34.90 Encounter for supervision of normal pregnancy, unspecified, unspecified trimester; F41.8 Other specified anxiety disorders; F17.210 Nicotine dependence, cigarettes, uncomplicated
CPT/HCPCS: 76817; 80053; 81001; 81025; 82150; 83690; 84702; 85025; 86140; 87086; 99282

== ENCOUNTER → 2021-01-11 14:55 | Outpatient (CLI) | payer MEDICARE, OTHER, SELFPAY ==
[2021-01-11 15:27] LABS: Basophils # 0.1 K/mm3 (0-0.2); Basophils % 0.7 % (0.1-2.0); Eosinophils # 0.1 K/mm3 (0.0-0.4); Eosinophils % 1.8 % (0.1-12.0); Hematocrit 38.1 % (37.0-47.0); Hemoglobin 12.9 g/dL (12.2-16.2); Lymphocytes # 1.6 K/mm3 (0.7-4.5); Lymphocytes % 21.8 % (10-50); Mean Corpuscular HGB Conc 33.8 g/dL (31.8-35.4); Mean Corpuscular Hemoglobin 31.2 pg (27.0-31.2); Mean Corpuscular Volume 92.3 fl (81-99); Mean Platelet Volume 8.6 fl (7.4-10.4); Monocytes # 0.5 K/mm3 (0.1-1.0); Monocytes % 6.8 % (1.7-9.3); Neutrophils # 5.1 K/mm3 (1.8-7.8); Neutrophils % 68.8 % (37.0-80.0); Platelet Count 250 K/mm3 (142-424); Red Blood Count 4.12 M/mm3 (4.20-5.40); Red Cell Distribution Width 13.5 % (11.5-17.5); White Blood Count 7.5 K/mm3 (4.8-10.8)
[2021-01-13 07:01] LABS: HIV Screen 4th Generation wRfx Non Reactive (Non Reactive); Hepatitis B Surface Antigen Negative (Negative); Hepatitis C Antibody <0.1 s/co ratio (0.0-0.9)
[2021-01-13 09:26] LABS: HSV 1 IgG, Type Spec >62.20 index (0.00-0.90); HSV 2 IgG, Type Spec <0.91 index (0.00-0.90); Rubella Antibodies, IgG 2.78 index (Immune >0.99)
[2021-01-13 10:11] LABS: Rapid Plasma Reagin Ab Titer Non Reactive (NonRea<1:1)
== END ==
PROVIDERS: Visit Provider Nurse Practitioner Obstetrics & Gynecology
DX: Z34.90 Encounter for supervision of normal pregnancy, unspecified, unspecified trimester (principal); Z21 Asymptomatic human immunodeficiency virus [HIV] infection status
CPT/HCPCS: 36415; 85025; 86592; 86695; 86703; 86762; 86790; 86850; 87340; 87380; G0432

== ENCOUNTER → 2021-01-18 12:32 | Outpatient (CLI) | payer MEDICARE, OTHER, SELFPAY ==
--- NOTE | 2021-01-18 12:32 | US_ITS ---
PROCEDURE: US OB <= 14 WEEKS FETUS CLINICAL INDICATION: for dates COMPARISON: US US OB TRANSVAGINAL from 12/19/2020 FINDINGS: An intrauterine gestational sac is present with a pole with a crown-rump length of 1.88cm correlating to gestational age of 8weeks 3days. heart tones are present with an FHR of 157bpm. Yolk sac is noted. Unremarkable adnexa. No cul-de-sac fluid IMPRESSION: Live IUP at 8 weeks 3 days Estimated due date by Ultrasound is 08/27/2021 Dictated by: Rudy Wilson MD 01/19/2021 08:16 Rudy Wilson MD in [place] 01/19/2021 08:16
== END ==
PROVIDERS: PCP Family Medicine; Visit Provider Nurse Practitioner Obstetrics & Gynecology
DX: Z34.90 Encounter for supervision of normal pregnancy, unspecified, unspecified trimester (principal)
CPT/HCPCS: 76801

== ENCOUNTER 2021-03-13 17:52 | Emergency (ER) | payer MEDICARE, OTHER, SELFPAY ==
[2021-03-13 18:22] LABS: Influenza A, PCR Not Detected (NotDetected); Influenza B, PCR Not Detected (NotDetected)
[2021-03-13 18:46] LABS: Coronavirus 19, PCR Detected (NotDetected)
[2021-03-13 19:20] VITALS: BP 0/0; PULSE 0; RESP 0; TEMP -17.7; TEMP 0
== END 2021-03-13 19:21 | disposition left against medical advice (07) ==
LOC: UTC 17:58
PROVIDERS: Emergency Provider Nurse Practitioner; PCP Family Medicine
DX: Z53.21 Procedure and treatment not carried out due to patient leaving prior to being seen by health care provider (principal)
CPT/HCPCS: C9803; U0003; U0005

== ENCOUNTER → 2021-04-13 12:34 | Outpatient (CLI) | payer MEDICARE, OTHER, SELFPAY ==
--- NOTE | 2021-04-13 12:35 | US_ITS ---
FINAL REPORT CLINICAL HISTORY: 20 weeks gestation FINDINGS: There is a single live intrauterine gestation. Presentation is breech. The cervix is closed and measures 3.22. Placenta is posterior, grade 1. movement is noted. Heart rate is noted at 133 bpm. Three-vessel cord with satisfactory umbilical cord insertion. AMNIOTIC FLUID: Appropriate amount. No gross anomaly is identified. MEASUREMENTS: ULTRASOUND AGE: 20 weeks 0 days. GESTATION AGE: 21 weeks 1 day. ESTIMATED WEIGHT: 329 g GROWTH PERCENTILE: 6% BPD: 4.55 cm consistent with 19 weeks 6 days. OFD: 5.86 cm consistent with 20 weeks 1 day. HC: 16.48 cm consistent with 20 weeks to days. AC: 14.57 cm consistent with 20 weeks 0 days. FL: 3.34 cm consistent with 20 weeks 4 days. CEREBELLUM: 1.91 cm consistent with 19 weeks 5 days. HUMERUS: 3.23 cm consistent with 20 weeks 6 days. HC/AC: 1.13 CI: 78% FL/BPD: 73% FL/AC: 23% IMPRESSION: Single living IUP with an ultrasound age of 20 weeks 0 days. Reviewed, Interpreted and Dictated by Giancarlo Fernandez MD Transcribed by Ro Jordan Authenticated by Giancarlo Fernandez MD on 04/13/2021 02:58:03 PM [facility]
== END ==
PROVIDERS: PCP Family Medicine; Visit Provider Nurse Practitioner Obstetrics & Gynecology
DX: Z36.0 Encounter for antenatal screening for chromosomal anomalies (principal); Z3A.20 20 weeks gestation of pregnancy
CPT/HCPCS: 76811

== ENCOUNTER 2021-04-24 19:33 | Outpatient (CLI) | payer MEDICARE, OTHER, SELFPAY ==
[2021-04-24 19:50] VITALS: BP 105/63; PULSE 66; RESP 19; TEMP 36.6; O2SAT 100; BMI 21.9
[2021-04-24 20:00] VITALS: BP 97/73; PULSE 66; RESP 19; TEMP 36.6; O2SAT 100; BMI 21.9
[2021-04-24 20:20] VITALS: BP 113/72; PULSE 64
[2021-04-24 20:47] LABS: Fetal Membrane Rupture (Rapid) Negative (Negative)
[2021-04-24 20:48] LABS: Microscopic, Urine URINE MICROSCOPIC (MICROSCOPIC)
[2021-04-24 20:53] LABS: Appearance,Urine CLOUDY (Clear); Bilirubin,Urine Negative (Negative); Blood, Urine TRACE-I (Negative); Color,Urine YELLOW (Yellow); Glucose,Urine (UA) Negative (Negative); Ketones,Urine Negative (Negative); Leukocyte Esterase,Urine Negative (Negative); Nitrate,Urine Negative (Negative); Protein,Urine Negative (Negative); Urobilinogen,Urine 0.2 EU/dl (0.2)
[2021-04-24 21:01] LABS: Bacteria,Urine 1+ /lpf; Squamous Epithelial Cell,Urine Occasional #/hpf (0-5)
--- NOTE | 2021-04-24 21:15 | US_ITS ---
PROCEDURE INFORMATION: Exam: US Abdomen, Limited; Right Upper Quadrant Exam date and time: 04/24/2021 9:15 PM Clinical indication: complicated by abdominal or pelvic pain; Right lower quadrant; Second trimester (14 weeks 0 days to 27 weeks 6 days); Gestational age or lmp: Camacho 08/23/21; ; Patient HX: Onset of acute rlq pain -- wbc normal; Additional info: R/O ovarian torsion and appendicitis TECHNIQUE: Imaging protocol: US abdomen. Real time ultrasound with image documentation. Limited exam focused on the right upper quadrant. COMPARISON: No relevant prior studies available. FINDINGS: Liver: Within normal limits. Gallbladder: No gallstones, gallbladder wall thickening, or pericholecystic fluid. Common bile duct: Within normal limits. Pancreas: Obscured by bowel gas. Right kidney: Mild dilation of the proximal right renal collecting system without evidence of obstructing stone. Color Doppler demonstrates normal renal perfusion. Intraperitoneal space: Images of the right lower quadrant show no free fluid or other abnormality. Appendix was not visualized. IMPRESSION: 1. No acute findings. 2. Mild dilation of the proximal right renal collecting system without evidence of obstructing stone, compatible with maternal physiologic hydronephrosis. PROCEDURE INFORMATION: Exam: US After First Trimester, Transabdominal Exam date and time: 04/24/2021 9:15 PM Age: 25 years old Clinical indication: complicated by abdominal or pelvic pain; Right lower quadrant; Second trimester (14 weeks 0 days to 27 weeks 6 days); Gestational age or lmp: Camacho 08/23/21; ; Patient HX: Onset of acute rlq pain -- wbc normal; Additional info: R/O ovarian torsion and appendicitis TECHNIQUE: Imaging protocol: Real-time transabdominal obstetrical ultrasound of the maternal pelvis and a second or third trimester with image documentation. COMPARISON: US OB /MATERNAL DETAIL 04/13/2021 1:04 PM FINDINGS: Gestation: Single live intrauterine gestation. heart rate: 128 bpm (within normal limits for gestational age) presentation: Breach. Placenta: Posterior fundal. Lower uterine segment is clear. No subchorionic hemorrhage. Amniotic fluid: Amniotic fluid is normal for gestational age. ANATOMY: heart four-chamber view, heart size and position: Normal situs. stomach: Normal. urinary bladder: Normal. Umbilical cord insertion site into the abdomen: Normal. Umbilical cord vessel number: Not well evaluated. BIOMETRY: Estimated due date (AUA): 08/26/2021 Gestational age (AUA): 22 weeks 2 days Estimated weight: 1lb 2oz (+/- 3oz) Biparietal diameter (BPD): 53 mm Head circumference (HC): 190 mm MATERNAL: Uterus: Unremarkable. Cervix: Cervix measures 3.0 cm in length. Internal cervical os closed. Right ovary/adnexa: Right ovary is normal in size and echotexture. Color Doppler demonstrates blood flow in the ovary. Left ovary/adnexa: Not evaluated. Intraperitoneal space: No intraperitoneal free fluid. IMPRESSION: No acute findings. Single live intrauterine gestation, size equals dates.
[2021-04-24 21:28] LABS: Basophils # 0.2 K/mm3 (0-0.2); Basophils % 1.8 % (0.1-2.0); Eosinophils # 0.3 K/mm3 (0.0-0.4); Eosinophils % 3.1 % (0.1-12.0); Hematocrit 42.7 % (37.0-47.0); Hemoglobin 13.8 g/dL (12.2-16.2); Lymphocytes # 1.8 K/mm3 (0.7-4.5); Lymphocytes % 21.8 % (10-50); Mean Corpuscular HGB Conc 32.2 g/dL (31.8-35.4); Mean Corpuscular Volume 105.8 fl (81-99); Mean Platelet Volume 9.5 fl (7.4-10.4); Monocytes # 0.7 K/mm3 (0.1-1.0); Monocytes % 8.7 % (1.7-9.3); Neutrophils # 5.4 K/mm3 (1.8-7.8); Neutrophils % 64.5 % (37.0-80.0); Platelet Count 219 K/mm3 (142-424); Red Blood Count 4.04 M/mm3 (4.20-5.40); Red Cell Distribution Width 14.5 % (11.5-17.5); White Blood Count 8.4 K/mm3 (4.8-10.8)
== END 2021-04-24 23:36 | disposition home or self-care (01) ==
LOC: OBOUT 19:35 → OB 19:36
PROVIDERS: PCP Family Medicine; Visit Provider Obstetrics & Gynecology
DX: O47.02 False labor before 37 completed weeks of gestation, second trimester (principal); Z3A.22 22 weeks gestation of pregnancy; R82.90 Unspecified abnormal findings in urine
CPT/HCPCS: 59025; 76805; 81001; 84112; 85025; 87086; 96365; G0463

== ENCOUNTER → 2021-05-11 15:15 | Outpatient (CLI) | payer MEDICARE, OTHER, SELFPAY ==
[2021-05-11 16:12] LABS: Basophils % 0.5 % (0.1-2.0); Eosinophils # 0.2 K/mm3 (0.0-0.4); Eosinophils % 2.3 % (0.1-12.0); Hematocrit 39.1 % (37.0-47.0); Hemoglobin 12.9 g/dL (12.2-16.2); Lymphocytes # 1.5 K/mm3 (0.7-4.5); Lymphocytes % 18.4 % (10-50); Mean Corpuscular Hemoglobin 34.8 pg (27.0-31.2); Mean Corpuscular Volume 105.5 fl (81-99); Mean Platelet Volume 9.3 fl (7.4-10.4); Monocytes # 0.5 K/mm3 (0.1-1.0); Monocytes % 6.3 % (1.7-9.3); Neutrophils % 72.5 % (37.0-80.0); Platelet Count 189 K/mm3 (142-424); Red Cell Distribution Width 14.1 % (11.5-17.5); White Blood Count 8.2 K/mm3 (4.8-10.8)
== END ==
PROVIDERS: PCP Nurse Practitioner Family; Visit Provider Nurse Practitioner Obstetrics & Gynecology
DX: R53.82 Chronic fatigue, unspecified (principal); Z3A.24 24 weeks gestation of pregnancy
CPT/HCPCS: 36415; 85025

== ENCOUNTER 2021-05-13 11:57 | Outpatient (CLI) | payer MEDICARE, OTHER, SELFPAY ==
[2021-05-13 12:29] VITALS: BP 108/69; PULSE 74; RESP 16; TEMP 37; O2SAT 97; BMI 23.8
--- NOTE | 2021-05-13 12:32 | US_ITS ---
FINAL REPORT CLINICAL HISTORY: VAGINAL BLEEDING FINDINGS: Single intrauterine is present. Cephalic presentation. Cardiac activity is confirmed at 147 beats per minute. Appropriate amount of fluid is present. Placenta is fundal. There is no previa. The fetus is active. Three-vessel cord with satisfactory umbilical cord insertion. Four-chamber heart is noted. brain and ventricles are unremarkable. Chest and diaphragm are unremarkable. ABDOMEN: Both kidneys are unremarkable. Stomach is unremarkable. SPINE: No anomalies identified. Both arms and legs noted. AMNIOTIC FLUID: Appropriate amount. MEASUREMENTS: ULTRASOUND AGE: 24 weeks 5 days. GESTATION AGE: 25 weeks 3 days. ESTIMATED WEIGHT: 724 g GROWTH PERCENTILE: 14% BPD: 6 cm consistent with 24 weeks 3 days. OFD: 7.8 cm consistent with 24 weeks 4 days. HC: 21.8 cm consistent with 24 weeks 0 days. AC: 19.6 cm consistent with 24 weeks 3 days. FL: 4.7 cm consistent with 25 weeks 4 days. HC/AC: 1.11 CI: 76% FL/BPD: 78% FL/AC: 24% IMPRESSION: Single living IUP with an ultrasound age of 24 weeks 5 days. Reviewed, Interpreted and Dictated by Giancarlo Fernandez MD Transcribed by Joni Dougherty Authenticated by Giancarlo Fernandez MD on 05/13/2021 02:12:38 PM [facility]
[2021-05-13 12:43] LABS: Microscopic, Urine URINE MICROSCOPIC (MICROSCOPIC)
[2021-05-13 12:58] LABS: Amphetamine/Metha Screen,Urine Negative ng/ml (<1000)
[2021-05-13 12:59] LABS: Barbiturates Screen,Urine Negative ng/ml (<200); Benzodiazepines Screen,Urine Negative ng/ml (<200)
[2021-05-13 13:00] LABS: Cannabinoid Screen,Urine Negative ng/ml (<50); Cocaine Screen,Urine Negative ng/ml (<300)
[2021-05-13 13:01] LABS: Methadone Screen,Urine Negative ng/ml (<300)
[2021-05-13 13:02] LABS: Opiate Screen,Urine Negative ng/ml (<300); Phencyclidine Screen,Urine Negative ng/ml (<25)
[2021-05-13 13:03] LABS: Appearance,Urine CLEAR (Clear); Bilirubin,Urine Negative (Negative); Blood, Urine 3+ (Negative); Color,Urine YELLOW (Yellow); Glucose,Urine (UA) Negative (Negative); Ketones,Urine Negative (Negative); Leukocyte Esterase,Urine TRACE (Negative); Nitrate,Urine Negative (Negative); Protein,Urine TRACE (Negative); Urobilinogen,Urine 0.2 EU/dl (0.2)
[2021-05-13 13:30] LABS: Amorphous Sediment,Urine 3+ /lpf; Bacteria,Urine 2+ /lpf; RBC,Urine 20-50 #/hpf (0-3)
== END 2021-05-13 13:33 | disposition home or self-care (01) ==
LOC: OBOUT 11:58 → OB 11:59
PROVIDERS: PCP Nurse Practitioner Family; Visit Provider Nurse Practitioner Obstetrics & Gynecology
DX: O20.8 Other hemorrhage in early pregnancy (principal); Z3A.25 25 weeks gestation of pregnancy; R82.90 Unspecified abnormal findings in urine; Z79.899 Other long term (current) drug therapy
CPT/HCPCS: 59025; 76805; 80305; 81001; 87086; G0463

== ENCOUNTER 2021-05-24 02:34 | Emergency (ER) | payer MEDICARE, OTHER, SELFPAY ==
--- NOTE | 2021-05-24 02:31 | ECG_ITS ---
APPROVED REPORT Exam: Resting ECG HR:80 bpm ECG Measurements Heart Rate 80 AXES HI 123 P 54 QRSd 78 QRS 28 QT 338 T 45 QTc 374 Conclusion SINUS RHYTHM WITH MARKED SINUS ARRHYTHMIA BORDERLINE ECG UNCONFIRMED REPORT Electronically signed by : Johnathan Fuller MD 05/25/2021 17:35:22
[2021-05-24 02:35] VITALS: BP 110/77; PULSE 100; RESP 18; TEMP 37.6; O2SAT 95; BMI 23.0
--- NOTE | 2021-05-24 02:46 | XR_ITS ---
PROCEDURE INFORMATION: Exam: XR Chest Exam date and time: 05/24/2021 3:06 AM Age: 25 years old Clinical indication: Cough; Patient HX: 25 weeks TECHNIQUE: Imaging protocol: XR of the chest. Views: 2 views. COMPARISON: CR XR CHEST AP 01/24/2020 10:35 PM FINDINGS: Lungs: Well aerated with no evidence of consolidations, interstitial patterns or pulmonary nodules. Pleural spaces: No evidence of effusions or pneumothorax. Heart/Mediastinum: The cardiomediastinal silhouette is normal in size and configuration. There is no evidence of cardiomegaly. Bones/joints: Intact. IMPRESSION: No radiographic evidence of an acute pulmonary process.
[2021-05-24 02:55] LABS: Coronavirus 19, PCR Not Detected (NotDetected); Influenza B, PCR Not Detected (NotDetected)
[2021-05-24 03:01] LABS: Basophils # 0.1 K/mm3 (0-0.2); Basophils % 1.5 % (0.1-2.0); Eosinophils # 0.1 K/mm3 (0.0-0.4); Hematocrit 39.3 % (37.0-47.0); Hemoglobin 13.1 g/dL (12.2-16.2); Lymphocytes # 0.7 K/mm3 (0.7-4.5); Lymphocytes % 14.4 % (10-50); Mean Corpuscular HGB Conc 33.2 g/dL (31.8-35.4); Mean Corpuscular Hemoglobin 35.2 pg (27.0-31.2); Mean Corpuscular Volume 105.9 fl (81-99); Mean Platelet Volume 9.5 fl (7.4-10.4); Monocytes # 0.5 K/mm3 (0.1-1.0); Monocytes % 9.8 % (1.7-9.3); Neutrophils # 3.3 K/mm3 (1.8-7.8); Neutrophils % 72.2 % (37.0-80.0); Platelet Count 148 K/mm3 (142-424); Red Blood Count 3.71 M/mm3 (4.20-5.40); Red Cell Distribution Width 13.7 % (11.5-17.5); White Blood Count 4.6 K/mm3 (4.8-10.8)
[2021-05-24 03:02] LABS: Alanine Aminotransferase 28 U/L (12-78); Albumin Level 3.5 g/dl (3.5-5.0); Albumin/Globulin Ratio 1.3 (1.1-1.8); Alkaline Phosphatase 81 U/L (38-126); Anion Gap 8.8 mEq/L (5-15); Aspartate Amino Transferase 33 U/L (14-36); Bilirubin,Total 0.2 mg/dl (0.2-1.3); Blood Urea Nitrogen 5 mg/dl (7-17); Calcium 8.2 mg/dl (8.4-10.2); Carbon Dioxide 20 mmol/L (22.0-30.0); Chloride 106 mmol/L (98-107); Creatinine Clearance Estimated 157 mL/min (50-200); Estimated Glomerular Filt Rate 148 ml/min (>60); GFR (African American) 179 ML/MIN (>60); Globulin 2.7 g/dL (1.3-3.2); Glucose 125 mg/dl (74-100); Potassium 3.8 mmoL/L (3.5-5.1); Sodium 131 mmol/L (136-145); Total Protein,Serum 6.2 g/dl (6.3-8.2)
[2021-05-24 03:08] LABS: C-Reactive Protein 33.2 mg/L (0-4)
[2021-05-24 03:13] LABS: Strep Scrn Group A (Rapid) Negative (Negative)
[2021-05-24 03:18] LABS: Troponin I < 0.01 ng/ml (0.00-0.034)
[2021-05-24 03:21] LABS: Procalcitonin 0.083 ng/mL (0.0-2.0)
[2021-05-24 03:24] LABS: Erythrocyte Sedimentation Rate 24 mm/hr (0-20); Influenza A, PCR Detected (NotDetected)
--- NOTE | 2021-05-24 03:32 | PC.NURSE ---
Spoke with Cooper with [facility] regarding safety of Tamiflu during . Per Cooper, cdc states that Tamiflu is safe during due to the risks of not treating the flu during .
[2021-05-24 04:00] VITALS: BP 105/73; PULSE 77; O2SAT 97
[2021-05-24 04:30] VITALS: BP 100/63; PULSE 69; O2SAT 98
--- NOTE | 2021-05-24 04:57 | HMH.EDURI ---
ED Disposition Clinical Impression: Influenza Qualifiers: Weeks of gestation: 25 weeks Qualified Code(s): Z3A.25 - 25 weeks gestation of Disposition: Home, Self-Care Condition on Discharge: Good Instructions: DI for Influenza -- Adult Additional Instructions: fluids and call ob this am Prescriptions: Oseltamivir Phosphate [Tamiflu 75mg Capsule] 75 mg PO BID #10 cap Transmission Status: Pending to [facility] Referrals: Divina Gray APRN [Primary Care Provider] - - Critical Care Critical Care Time: No Attestation: On 05/24/21, the high probability of a clinically significant, sudden or life threatening deterioration of the following system(s) required my full and direct attention, intervention and personal management. The time I documented below is in addition to time spent performing reported procedures but includes the following listed in this critical care notation. Medical Decision Making - Medical Records Medical records reviewed: Yes: I reviewed the patient's medical records. - Matthias Inquiry Pt receiving controlled substance: No Vital Signs: 05/24/21 02:35 Temperature 99.7 F H Temperature Source Oral Pulse Rate [Apical] 100 H Respiratory Rate 18 Blood Pressure [Right Arm] 110/77 Blood Pressure Mean [Right Arm] 88 Blood Pressure Source [Right Arm] Automatic Cuff Blood Pressure Position [Right Arm] Sitting 02 Sat by Pulse Oximetry 95 Oxygen Delivery Method Room Air - Lab Data Lab results reviewed: Yes: I reviewed the patient's lab results. Lab Results 05/24/21 02:35: WBC 4.6 L, RBC 3.71 L, Hgb 13.1, Hct 39.3, MCV 105.9 H, MCH 35.2 H, MCHC 33.2, RDW 13.7, Plt Count 148, MPV 9.5, Neut % (Auto) 72.2, Lymph % (Auto) 14.4, [place] % (Auto) 9.8 H, Eos % (Auto) 2.0, Baso % (Auto) 1.5, Neut # (Auto) 3.3, Lymph # (Auto) 0.7, [place] # (Auto) 0.5, Eos # (Auto) 0.1, Baso # (Auto) 0.1, ESR 24 H 05/24/21 02:35: Sodium 131 L, Potassium 3.8, Chloride 106, Carbon Dioxide 20 L, Anion Gap 8.8, BUN 5 L, Creatinine 0.50 L, Estimated Creat Clear 157, Estimated GFR 148, Est GFR ( Amer) 179, Glucose 125 H, Calcium 8.2 L, Total Bilirubin 0.2, AST 33, ALT 28, Alkaline Phosphatase 81, Troponin I < 0.01, C-Reactive Protein 33.2 H, Total Protein 6.2 L, Albumin 3.5, Globulin 2.7, Albumin/Globulin Ratio 1.3, Procalcitonin 0.083 05/24/21 02:35: Group A Strep Rapid Negative 05/24/21 02:35: SARS-CoV-2 (PCR) Not detected, Influenza A Untype (PCR) Detected A, Influenza Type B (PCR) Not detected Result diagrams: 05/24/21 02:35 05/24/21 02:35 Orders (Tests/Meds): ED MEDICATIONS Generic Name Dose Route Start Last Admin Trade Name Freq PRN Reason Stop Dose Admin Sodium Chloride 1,000 mls @ 999 mls/hr 05/24/21 03:00 05/24/21 02:47 Sod Chlor 0.9% 1000ml Bag IV 05/24/21 04:00 999 mls/hr .Q1H1M CLAUDIA Administration ORDERS Category Date Time Status Troponin I Q3H Lab 05/24/21 06:00 Ordered Troponin I Q3H Lab 05/24/21 09:00 Ordered Strep Screen Confirmation Stat Micro 05/24/21 02:35 Received - Radiology Data #1 Image(s): Chest Image Reviewed: Yes I have reviewed radiologist's interpretation Preliminary Findings: Normal/NAD Medical Decision Narrative: has flu a in 25 week preg will use tamiflu URI/Sore Throat HPI - General Chief Complaint: Upper Respiratory Infection Stated Complaint: chest pain Time Seen by Provider: 05/24/21 03:15 Mode of Arrival: Ambulatory Source of Information: Patient, Medical Record Limitations: No Limitations Description of Symptoms (Recalled from ER Triage Doc. by RN): Patient c/o sore throat, congestion and cough, head pressure and chest burning for prior 3 days. States that tonight the burning in her chest and cough were so severe that she couldn't sleep. Last took tylenol 30 minutes ago. - History of Present Illness HPI Narrative: uri sx with cough over the last few days MD Complaint: cough, sore throat, dago
[2021-05-24 05:10] VITALS: BP 115/73; PULSE 59; RESP 16; TEMP 36.9; O2SAT 97
== END 2021-05-24 05:12 | disposition home or self-care (01) ==
PROVIDERS: Emergency Provider Emergency Medicine; PCP Nurse Practitioner Family
DX: J10.1 Influenza due to other identified influenza virus with other respiratory manifestations (principal); Z3A.25 25 weeks gestation of pregnancy; Z87.891 Personal history of nicotine dependence; F41.8 Other specified anxiety disorders
CPT/HCPCS: 71046; 80053; 84145; 84484; 85025; 85651; 86140; 87430; 93005; 96360; 96365; 99283; C9803; U0003; U0005

== ENCOUNTER → 2021-06-02 14:04 | Outpatient (CLI) | payer MEDICARE, OTHER, SELFPAY | PROVIDERS: Visit Provider Nurse Practitioner Family | DX: R05.1 Acute cough (principal); Z3A.28 28 weeks gestation of pregnancy ==

== ENCOUNTER → 2021-07-11 12:18 | Outpatient (CLI) | payer MEDICARE, OTHER, SELFPAY ==
[2021-07-11 17:58] LABS: Fetal Fibronectin (Rapid) Positive (Negative)
== END ==
PROVIDERS: Visit Provider Nurse Practitioner Obstetrics & Gynecology
DX: O60.00 Preterm labor without delivery, unspecified trimester (principal)
CPT/HCPCS: 82731

== ENCOUNTER 2021-07-11 16:14 | Outpatient (CLI) | payer MEDICARE, OTHER, SELFPAY ==
[2021-07-11 16:22] VITALS: BMI 24.4
--- NOTE | 2021-07-11 16:23 | US_ITS ---
PROCEDURE INFORMATION: Exam: US Biophysical Profile Without Non-Stress Test Exam date and time: 07/11/2021 4:32 PM Age: 26 years old Clinical indication: Pain indication: Low pelvic pain/pressure; ; Additional info: Low fluid on last u/s TECHNIQUE: Imaging protocol: US biophysical profile without non-stress testing. COMPARISON: US OB >= 14 WEEKS FETUS 05/13/2021 1:03 PM FINDINGS: heart rate: heart rate 139 bpm. Presentation: presentation is cephalic. Amniotic fluid index: Amniotic fluid index 16.9 cm BIOPHYSICAL PROFILE: breathing movement (BPP): 2/2 body movement (BPP): 2/2 tone (BPP): 2/2 Amniotic fluid (BPP): 2/2 BIOMETRY: Estimated weight: 2128 g. 4 lb 11 oz. Gestational age (AUA): Single live intrauterine gestation with the estimated gestational age of approximately 33 weeks 2 days by ultrasound and 33 weeks 6 days by last menstrual period. BPD: 8.2 cm. Thirty-three weeks 1 day. HC: 29.8 cm. Thirty-three weeks. AC: 29.1 cm. Thirty-three weeks 1 day. FL: 6.5 cm. Thirty-three weeks 3 days. Estimated due date (AUA): Estimated due date 08-27-21 by ultrasound and 08-23-21 by last menstrual period. MATERNAL ANATOMY: Cervix: Cervical length 1.4 cm Other findings: Profile is normal; Systolic diastolic ratio 2.5; FL/AC: 22%; HC/AC: 1.02; CI: 77%; Biophysical profile-09/26. IMPRESSION: 1. Single live intrauterine gestation with the estimated gestational age of approximately 33 weeks 2 days by ultrasound and 33 weeks 6 days by last menstrual period. . 2. heart rate 139 bpm. 3. Biophysical profile-09/26. Please note cervical length
[2021-07-11 17:38] VITALS: BP 108/71; PULSE 64; RESP 17; O2SAT 99; BMI 24.3
[2021-07-11 18:46] LABS: Microscopic, Urine URINE MICROSCOPIC (MICROSCOPIC)
[2021-07-11 18:53] LABS: Appearance,Urine CLEAR (Clear); Bilirubin,Urine Negative (Negative); Blood, Urine Negative (Negative); Color,Urine YELLOW (Yellow); Glucose,Urine (UA) Negative (Negative); Ketones,Urine Negative (Negative); Leukocyte Esterase,Urine Negative (Negative); Nitrate,Urine Negative (Negative); PH,Urine 7.5 (5.0-8.5); Protein,Urine Negative (Negative); Specific Gravity, Urine 1.015 (1.005-1.030); Urobilinogen,Urine 0.2 EU/dl (0.2)
[2021-07-11 19:17] LABS: Squamous Epithelial Cell,Urine Occasional #/hpf (0-5)
[2021-07-11 19:36] LABS: Amphetamine/Metha Screen,Urine Negative ng/ml (<1000); Benzodiazepines Screen,Urine Negative ng/ml (<200)
[2021-07-11 19:37] LABS: Barbiturates Screen,Urine Negative ng/ml (<200)
[2021-07-11 19:38] LABS: Cannabinoid Screen,Urine Negative ng/ml (<50); Cocaine Screen,Urine Negative ng/ml (<300)
[2021-07-11 19:39] LABS: Methadone Screen,Urine Negative ng/ml (<300); Opiate Screen,Urine Negative ng/ml (<300)
[2021-07-11 19:40] LABS: Phencyclidine Screen,Urine Negative ng/ml (<25)
== END 2021-07-11 18:57 | disposition home or self-care (01) ==
LOC: OBOUT 16:16 → OB 16:16
PROVIDERS: PCP Nurse Practitioner Family; Visit Provider Nurse Practitioner Obstetrics & Gynecology
DX: O26.893 Other specified pregnancy related conditions, third trimester (principal); Z3A.33 33 weeks gestation of pregnancy; R07.9 Chest pain, unspecified; R10.30 Lower abdominal pain, unspecified; Z79.899 Other long term (current) drug therapy
CPT/HCPCS: 59025; 76811; 76819; 76820; 80305; 81001; 82731; 96365; 96372; G0463

== ENCOUNTER 2021-07-12 18:18 | Outpatient (CLI) | payer MEDICARE, OTHER, SELFPAY ==
[2021-07-12 18:35] VITALS: BMI 24.4
== END 2021-07-12 18:40 | disposition home or self-care (01) ==
LOC: OBOUT 18:21 → OB 18:22
PROVIDERS: PCP Nurse Practitioner Family; Visit Provider Nurse Practitioner Obstetrics & Gynecology
DX: O26.893 Other specified pregnancy related conditions, third trimester (principal); Z3A.33 33 weeks gestation of pregnancy; R10.30 Lower abdominal pain, unspecified
CPT/HCPCS: 96372; G0463

== ENCOUNTER 2021-07-13 15:56 | Outpatient (CLI) | payer MEDICARE, OTHER, SELFPAY ==
[2021-07-13 18:28] VITALS: BMI 24.3
== END 2021-07-13 19:01 | disposition home or self-care (01) ==
LOC: OBOUT 15:57 → OB 15:58
PROVIDERS: PCP Nurse Practitioner Family; Visit Provider Obstetrics & Gynecology
DX: O26.893 Other specified pregnancy related conditions, third trimester (principal); Z3A.34 34 weeks gestation of pregnancy
CPT/HCPCS: 59025; 96365; G0463

== ENCOUNTER → 2021-08-04 16:53 | Outpatient (CLI) | payer MEDICARE, OTHER, SELFPAY | PROVIDERS: Visit Provider Nurse Practitioner Obstetrics & Gynecology | DX: Z34.90 Encounter for supervision of normal pregnancy, unspecified, unspecified trimester (principal) | CPT/HCPCS: 86403 ==

== ENCOUNTER 2021-08-13 21:47 | Outpatient (CLI) | payer MEDICARE, OTHER, SELFPAY ==
[2021-08-13 21:52] VITALS: BMI 24.0
[2021-08-13 22:18] LABS: Microscopic, Urine URINE MICROSCOPIC (MICROSCOPIC)
[2021-08-13 22:23] LABS: Appearance,Urine CLOUDY (Clear); Bilirubin,Urine Negative (Negative); Blood, Urine 2+ (Negative); Color,Urine YELLOW (Yellow); Glucose,Urine (UA) Negative (Negative); Ketones,Urine Negative (Negative); Leukocyte Esterase,Urine 1+ (Negative); Nitrate,Urine Negative (Negative); Protein,Urine Negative (Negative); Specific Gravity, Urine 1.025 (1.005-1.030); Urobilinogen,Urine 0.2 EU/dl (0.2)
[2021-08-13 22:25] LABS: Amorphous Sediment,Urine 2+ /lpf; RBC,Urine 20-50 #/hpf (0-3); Squamous Epithelial Cell,Urine 20-50 #/hpf (0-5)
[2021-08-13 22:31] VITALS: BP 128/74; PULSE 82; RESP 17; TEMP 36.8; O2SAT 98; BMI 24.0
[2021-08-13 22:31] LABS: Fetal Membrane Rupture (Rapid) Negative (Negative)
[2021-08-13 22:46] LABS: Amphetamine/Metha Screen,Urine Negative ng/ml (<1000); Barbiturates Screen,Urine Negative ng/ml (<200); Benzodiazepines Screen,Urine Negative ng/ml (<200); Cannabinoid Screen,Urine Negative ng/ml (<50); Cocaine Screen,Urine Negative ng/ml (<300); Methadone Screen,Urine Negative ng/ml (<300); Opiate Screen,Urine Negative ng/ml (<300); Phencyclidine Screen,Urine Negative ng/ml (<25)
== END 2021-08-13 22:55 | disposition home or self-care (01) ==
LOC: OBOUT 21:49 → OB 21:49
PROVIDERS: PCP Nurse Practitioner Family; Visit Provider Obstetrics & Gynecology
DX: B95.1 Streptococcus, group B, as the cause of diseases classified elsewhere (principal); Z34.90 Encounter for supervision of normal pregnancy, unspecified, unspecified trimester
CPT/HCPCS: 59025; 80305; 81001; 84112; 87086; G0463

== ENCOUNTER 2021-08-15 08:41 | Inpatient (IN) | payer MEDICARE, OTHER, SELFPAY ==
[2021-08-15 07:50] VITALS: BMI 23.3
[2021-08-15 08:27] LABS: Microscopic, Urine URINE MICROSCOPIC (MICROSCOPIC)
[2021-08-15 08:29] LABS: Appearance,Urine CLEAR (Clear); Bilirubin,Urine Negative (Negative); Blood, Urine TRACE-I (Negative); Color,Urine YELLOW (Yellow); Glucose,Urine (UA) Negative (Negative); Ketones,Urine Negative (Negative); Leukocyte Esterase,Urine TRACE (Negative); Nitrate,Urine Negative (Negative); PH,Urine 7.5 (5.0-8.5); Protein,Urine Negative (Negative); Specific Gravity, Urine 1.015 (1.005-1.030); Urobilinogen,Urine 0.2 EU/dl (0.2)
[2021-08-15 08:34] LABS: Fetal Membrane Rupture (Rapid) Positive (Negative)
[2021-08-15 08:41] LABS: Bacteria,Urine Trace /lpf; RBC,Urine Occasional #/hpf (0-3); Squamous Epithelial Cell,Urine Occasional #/hpf (0-5); WBC,Urine Occasional #/hpf (0-3)
[2021-08-15 09:02] LABS: Amphetamine/Metha Screen,Urine Negative ng/ml (<1000); Benzodiazepines Screen,Urine Negative ng/ml (<200)
[2021-08-15 09:03] LABS: Barbiturates Screen,Urine Negative ng/ml (<200)
[2021-08-15 09:04] LABS: Cannabinoid Screen,Urine Negative ng/ml (<50); Methadone Screen,Urine Negative ng/ml (<300)
[2021-08-15 09:05] LABS: Cocaine Screen,Urine Negative ng/ml (<300); Opiate Screen,Urine Negative ng/ml (<300)
[2021-08-15 09:06] LABS: Phencyclidine Screen,Urine Negative ng/ml (<25)
--- NOTE | 2021-08-15 09:14 | HMH.HP ---
*Admission Date: 08/15/21 *Chief complaint: active labor, rupture of membranes *History of present illness: 26 yo @ [birth year] presented with complaint of active labor and spontaneous rupture of membranes 06:45 this am. care at [facility]--Dr. Villa. + regular contractions and leakage of fluid; no vaginal bleeding. Normal movement. uncomplicated; GBS positive. [facility] History I have reviewed the patient's past medical history: Yes Medical History: Reports:: Anxiety, Arrhythmia, Depression, Migraine, MRSA Denies:: Cancer, Diabetes Mellitus Type 1, Diabetes Mellitus Type 2, Hypertension, Internal Pacemaker, Seizures *Have you ever received a pneumonia vaccine?: No *Have you received a flu vaccine this season?: No Other Medical History: Reports: Anemia, Other. Denies: Blood Transfusion Reaction Anesthesia experience/problems:: none Laterality Cases: Left: Arthroscopy Knee, Bilateral: Other Other Surgeries: Yes: No Previous Surgery, Other. No: , Pacemaker Amputation: No Fractures: Yes - *Social History Smoking Status: Former smoker Tobacco Type: cigarettes # Packs/Day (cigarettes): 1 Alcohol Intake: never Alcohol Intake Frequency:: holidays/special occasions only Substance Use Type: denies use *Occupational Status:: unemployed Housing: house Household Members: family *Travel in the last 8 weeks: None - Psychiatric History Pschychiatric History:: Reports:: Anxiety, Depression Family Hx:: No significant family history Para: 1 Review of Systems - Review of Systems Review of systems:: pertinent systems reviewed and negative unless documented below - *Genitourinary Reports other (+contractions, +leakage of fluid), Denies abnormal vaginal bleeding Meds Home Medications Medication Instructions Recorded Confirmed Type ferrous sulfate 325 mg (65 mg 325 mg PO DAILY #30 tab 01/11/21 08/15/21 Rx iron) tablet vit no.95-ferrous 1 tab PO DAILY tab 05/10/21 08/15/21 History fumarate 28 mg-folic acid 800 mcg tablet albuterol sulfate 90 mcg/actuation 2 puff IH Q4HP PRN 06/07/21 08/15/21 History aerosol inhaler Acetaminophen with Codeine 1 tab PO Q8HP PRN 08/15/21 08/15/21 History [Acetaminophen-Cod #3 Tablet] Ondansetron [Zofran 4mg ODT] 4 mg PO Q6HP PRN 08/15/21 08/15/21 History hydrOXYzine HCL [Hydroxyzine HCl] 10 mg PO BIDP PRN 08/15/21 08/15/21 History Allergies Allergy/AdvReac Type Severity Reaction Status Date / Time vancomycin [VANCOMYCIN] Allergy Intermediate RED MAN Verified 08/08/21 09:12 SYNDROME ibuprofen [From Motrin IB] Allergy Mild Ulcers Verified 08/08/21 09:12 Exam Vital signs and Labs for Last 24 Hours: Temp Pulse Resp BP Pulse Ox 98.0 F 61 17 108/70 L 100 08/15/21 10:24 08/15/21 10:24 08/15/21 10:24 08/15/21 10:24 08/15/21 10:24 Laboratory Results - last 24 hr 08/15/21 07:52: Urine Color Yellow, Urine Appearance Clear, Urine pH 7.5, Ur Specific [place] 1.015, Urine Protein Negative, Urine Glucose (UA) Negative, Urine Ketones Negative, Urine Blood Trace-i, Urine Nitrate Negative, Urine Bilirubin Negative, Urine Urobilinogen 0.2, Ur Leukocyte Esterase Trace, Urine RBC Occasional, Urine WBC Occasional, Ur Squamous Epith Cells Occasional, Urine Bacteria Trace 08/15/21 07:52: Urine Opiates Screen Negative, Urine Methadone Screen Negative, Ur Barbituates Screen Negative, Ur Phencyclidine Scrn Negative, Ur Amphetamines Screen Negative, U Benzodiazepines Scrn Negative, Urine Cocaine Screen Negative, U Marijuana (THC) Screen Negative 08/15/21 08:07: Membrane Rupture Positive A 08/15/21 09:08: SARS-CoV-2 (PCR) Not detected, Influenza A Untype (PCR) Not detected, Influenza Type B (PCR) Not detected 08/15/21 09:25: WBC 8.7, RBC 3.86 L, Hgb 12.8, Hct 40.4, MCV 104.5 H, MCH 33.1 H, MCHC 31.7 L, RDW 13.4, Plt Count 208, MPV 9.5, Neut % (Auto) 70.8, Lymph % (Auto) 14.0, [place] % (Auto) 9.9 H, Eos % (Auto) 2.2, Baso % (Auto) 3.2 H, Neut #
[2021-08-15 09:39] LABS: Coronavirus 19, PCR Not Detected (NotDetected); Influenza A, PCR Not Detected (NotDetected); Influenza B, PCR Not Detected (NotDetected)
[2021-08-15 10:02] LABS: Basophils # 0.3 K/mm3 (0-0.2); Basophils % 3.2 % (0.1-2.0); Eosinophils # 0.2 K/mm3 (0.0-0.4); Eosinophils % 2.2 % (0.1-12.0); Hematocrit 40.4 % (37.0-47.0); Hemoglobin 12.8 g/dL (12.2-16.2); Lymphocytes # 1.2 K/mm3 (0.7-4.5); Mean Corpuscular HGB Conc 31.7 g/dL (31.8-35.4); Mean Corpuscular Hemoglobin 33.1 pg (27.0-31.2); Mean Corpuscular Volume 104.5 fl (81-99); Mean Platelet Volume 9.5 fl (7.4-10.4); Monocytes # 0.9 K/mm3 (0.1-1.0); Monocytes % 9.9 % (1.7-9.3); Neutrophils # 6.2 K/mm3 (1.8-7.8); Neutrophils % 70.8 % (37.0-80.0); Platelet Count 208 K/mm3 (142-424); Red Blood Count 3.86 M/mm3 (4.20-5.40); Red Cell Distribution Width 13.4 % (11.5-17.5); White Blood Count 8.7 K/mm3 (4.8-10.8)
[2021-08-15 10:08] VITALS: BP 108/70; PULSE 61; RESP 17; TEMP 36.7; O2SAT 100; BMI 23.3
--- NOTE | 2021-08-15 10:12 | HMH.PHAINT ---
MEDICATION RECONCILIATION COMPLETED ON PATIENT USING EXTERNAL FILL HISTORY FROM PHARMACY. -NICOLAS WILHELM, KALYND
[2021-08-15 10:24] VITALS: BP 108/70; PULSE 61; RESP 17; TEMP 36.7; O2SAT 100
--- NOTE | 2021-08-15 14:06 | P.PN_ITS ---
[facility] Anesthesia Checklist - Patient Identification Patient Identification: Arm Band, Verbal (Name & ) - Structural Data Admitted From: Inpatient Planned Operative Procedure/s: EDVIN Consent for Planned Operative Procedure(s) Verified: Yes Verified Documents: Surgical Consent - Chart Verification Results Verified: CBC - Additional verifications Anesthesia Reactions: No Hx Blood Transfusions: No Blood Transfusion Reaction: No - Airway Assessment C-Spine Mobility Assessed: Yes TMJ Mobility Assessed: Yes Dentition: Edentulous - Neurological Assessment Level of Consciousness: Awake, Alert, Appropriate - Anesthesia Plan Anesthesia Risk discussed: Yes ASA Class: II Anesthesia Type: Epidural [facility] History I have reviewed the patient's past medical history: Yes Medical History: Reports:: Anxiety, Arrhythmia, Depression, Migraine, MRSA Denies:: Cancer, Diabetes Mellitus Type 1, Diabetes Mellitus Type 2, Hypertension, Internal Pacemaker, Seizures *Have you ever received a pneumonia vaccine?: No *Have you received a flu vaccine this season?: No Other Medical History: Reports: Anemia, Other. Denies: Blood Transfusion Reaction Anesthesia experience/problems:: none Laterality Cases: Left: Arthroscopy Knee, Bilateral: Other Other Surgeries: Yes: No Previous Surgery, Other. No: , Pacemaker Amputation: No Fractures: Yes - *Social History Smoking Status: Former smoker Tobacco Type: cigarettes # Packs/Day (cigarettes): 1 Alcohol Intake: never Alcohol Intake Frequency:: holidays/special occasions only Substance Use Type: denies use *Occupational Status:: unemployed Housing: house Household Members: family *Travel in the last 8 weeks: None - Psychiatric History Pschychiatric History:: Reports:: Anxiety, Depression Family Hx:: No significant family history Para: 1
--- NOTE | 2021-08-15 18:27 | HMH.LABNOT ---
Labor Note - Subjective: Date: 08/15/21 Time: 12:27 regular contraction - Objective: NST:: Reactive Contractions:: every 2-3 minutes Cervical Dilation:: 4 Effacement:: 75% Station: -1 Membranes: spontaneously ruptured - Assessment: Labor progressing?: Yes Patient Problems: All Active Problems Active labor at term (Acute) Spontaneous rupture of membranes (Acute) 38 weeks gestation of (Acute) Positive GBS test (Acute) Patient left without being seen (Acute) Influenza (Acute) (Acute) Knee pain (Acute) Tejeda's cyst of knee (Acute) Abdominal pain (Acute) Right thigh pain (Acute) Atypical chest pain (Acute) Sinus bradycardia (Acute) Dyspnea (Acute) - Plan: Comment:: Continue pitocin augmentation Continue Amoxicillin Continuous monitoring Epidural placement soon
--- NOTE | 2021-08-15 18:29 | HMH.DN ---
- Delivery Note Delivery Date:: 08/15/21 Delivery Time:: 17:33 Anesthesia Type: Epidural Was labor medically induced?: No Gestational age (weeks): 38 Infant delivered prior to 39 weeks?: Yes Justification for early elective delivery:: Active Labor Infant Gender: Female at 1 minute: 9 at 5 minutes: 9 Delivery Procedure:: Spontaneous vaginal delivery of live born female over intact perineum. Delivery uncomplicated No nuchal cord No shoulder dystocia with delivery placed in SHYLA immediately after delivery, with standard nursing assessment performed Infant Apgars: 9 & 9 Placenta spontaneously expressed and examined; noted to be complete/intact. Vulva, vagina, and cervix inspected; bilateral periurethral lacerations repaired with 2-0 vicryl 1st degree perineal laceration repaired with 2-0 vicryl EBL: 300 cc All sponge/needle/instrument counts correct at conclusion of procedure Laceration:: vaginal, labial Placental Delivery Description: Spontaneous
[2021-08-16 07:45] LABS: Hematocrit 36.9 % (37.0-47.0); Hemoglobin 11.6 g/dL (12.2-16.2)
[2021-08-16 08:23] VITALS: BP 111/56; PULSE 66; RESP 16; TEMP 36.7; O2SAT 98
[2021-08-16 16:00] VITALS: BP 108/56; PULSE 59; RESP 16; TEMP 36.7; O2SAT 100
--- NOTE | 2021-08-16 17:16 | HMH.ACPN2 ---
Internal Medicine - PN: Subj *Date: 08/16/21 *Time: 17:16 Interval history: PPD #1 vaginal delivery No unusual complaints Tolerating regular diet Ambulating and voiding without difficulty Lochia light Exam Vital signs and Labs for Last 24 Hours: Temp Pulse Resp BP Pulse Ox 98.1 F 59 L 16 108/56 L 100 08/16/21 16:00 08/16/21 16:00 08/16/21 16:00 08/16/21 16:00 08/16/21 16:00 Laboratory Results - last 24 hr 08/16/21 07:20: Hgb 11.6 L, Hct 36.9 L I & O for Last 24 hours: Intake & Output 08/14/21 08/15/21 08/16/21 08/17/21 11:59 11:59 11:59 11:59 Weight 136 lb 6.012 oz Narrative: CONSTITUTIONAL: no acute distress HEENT: mucous membranes moist PULMONARY: breathing unlabored without audible wheezes CV: no tachycardia or visible JVD; normal LE peripheral pulses ABD: soft, NT/ND, no guarding : fundus firm below umbilicus SKIN: no visible rash or lesions EXT: 1+ edema LEs NEURO: alert/oriented, no altered mental status PSYCH: appropriate mood and demeanor Assessment and Plan (1) 38 weeks gestation of Status: Acute Category: Medical Code(s): Z3A.38 - 38 weeks gestation of (2) Active labor at term Status: Acute Category: Medical (3) Spontaneous rupture of membranes Status: Acute Category: Medical (4) Positive GBS test Status: Acute Category: Medical Code(s): B95.1 - Streptococcus, group B, as the cause of diseases classified elsewhere (5) Vaginal delivery Status: Acute Category: Medical Code(s): O80 - Encounter for full-term uncomplicated delivery - Assessment and plan all Dx Assessment and Plan for all problems:: Routine care Anticipate discharge home tomorrow
[2021-08-16 20:00] VITALS: BP 112/84; PULSE 67
[2021-08-17 04:00] VITALS: BP 121/70; PULSE 51; RESP 17; TEMP 36.8; O2SAT 99
[2021-08-17 08:57] VITALS: BP 126/61; PULSE 64; RESP 18; TEMP 36.9; O2SAT 97
--- NOTE | 2021-08-17 09:12 | HMH.OBDCSM ---
General - General Admission date:: 08/15/21 Discharge date: 08/17/21 HPI - History of Present Illness History of present illness: PPD #2 s/p Patient is feeling well. No complaints or concerns. She is bottle feeding. Light lochia. Denies chest pain, shortness of breath, fever/chills, headaches and swelling. She is tolerating regular diet. Voiding with difficulty. Passing flatus Hospital Course Hospital Course: Patient was admitted to [facility] Labor and Delivery on 08/15/21 for active labor and spontaneous rupture of membranes 06:45 on 08/15/21. GBS positive. She had a normal spontaneous vaginal delivery on 08/15/21. She delivered a girl, 5 lb 11 oz, APGARs were 9, 9. EBL was 300 mL. PPD #1 She was doing well. No chief complaints. She was breast feeding. Vitals were: BP 108/56, HR 59, R 16, T 98.1. Heart was regular rate and rhythm. Lungs were clear to auscultation. Abdomen was soft, nontender, uterine fundus firm and below umbilicus. Lochia was light. PPD # 2 She was doing well. She had no chief complaints. Reported decreased lochia. She was urinating without difficulty. Passing flatus. Pain was controlled. She had no nausea, vomiting, fever/chills, chest pain or shortness of breath. Vitals were: BP 126/61, HR 64, R 18, T 98.4. Heart was regular rate and rhythm. Lungs were clear to auscultation. Abdomen was soft, nontender, uterine fundus firm and below umbilicus. Extremities were non-edematous and she had no calf tenderness to palpation. Normal hospital course. During this admission, patient's hemoglobin and hematocrit were: 08/15/21: Hgb 12.8, Hct 40.4 08/16/21: Hgb 11.6, Hct 36.9 Rhogam Administration: Not Indicated Objective Vital signs: Temp Pulse Resp BP Pulse Ox 98.2 F 51 L 17 121/70 99 08/17/21 04:00 08/17/21 04:00 08/17/21 04:00 08/17/21 04:00 08/17/21 04:00 no acute distress - *Routine HEENT Exam Head: Present: normocephalic Eye: Absent: conjunctivae pink ENT: Present: mucous membranes moist - *Routine Respiratory Exam Present: CTA bilaterally - *Routine Cardiovascular Exam Present: RRR - *Routine Abdominal Exam Present: soft, normoactive bowel sounds. Absent: tenderness, distended - *Routine Extremities Exam Present: full ROM. Absent: edema, calf tenderness - *Routine Neurological Exam Present: alert, oriented X3 DS: Diagnosis - Discharge Diagnosis (1) 38 weeks gestation of Status: Acute (2) Active labor at term Status: Acute (3) Spontaneous rupture of membranes Status: Acute (4) Positive GBS test Status: Acute (5) Vaginal delivery Status: Acute (6) Atopic dermatitis Status: Acute Discharge Plan - Patient Discharge Instructions ACTIVITY: Continue current activity DIET: continue same diet Additional Instructions: Nothing in the vagina for 6 weeks No tub baths Drink plenty of fluids Patient Instructions: Depression, Hemorrhage, DI for Labor and Delivery, Vaginal , [facility] Post Discharge Instructions - Follow up Plan Disposition: Home, Self-Care Condition at discharge:: Stable Home Medications: Home Medications Medication Instructions Recorded Confirmed Type ferrous sulfate 325 mg (65 mg 325 mg PO DAILY #30 tab 01/11/21 08/15/21 Rx iron) tablet vit no.95-ferrous 1 tab PO DAILY tab 05/10/21 08/15/21 History fumarate 28 mg-folic acid 800 mcg tablet albuterol sulfate 90 mcg/actuation 2 puff IH Q4HP PRN 06/07/21 08/15/21 History aerosol inhaler Acetaminophen with Codeine 1 tab PO Q8HP PRN 08/15/21 08/15/21 History [Acetaminophen-Cod #3 Tablet] Ondansetron [Zofran 4mg ODT] 4 mg PO Q6HP PRN 08/15/21 08/15/21 History hydrOXYzine HCL [Hydroxyzine HCl] 10 mg PO BIDP PRN 08/15/21 08/15/21 History Hydrocortisone [Hydrocortisone 28 gm TP BID #28 gm 08/17/21 Rx 2.5% Cream 28gm Tube] Prescriptions/Medication Reconciliation: New Hydrocortisone
== END 2021-08-17 10:10 | disposition home or self-care (01) | DRG 807 ==
LOC: OBOUT 08:41 → OB 08:41
PROVIDERS: Admitting Provider Obstetrics & Gynecology; PCP Nurse Practitioner Family; Visit Provider Obstetrics & Gynecology
DX: O70.0 First degree perineal laceration during delivery (principal); Z37.0 Single live birth; Z3A.38 38 weeks gestation of pregnancy; O99.820 Streptococcus B carrier state complicating pregnancy; L20.9 Atopic dermatitis, unspecified
CPT/HCPCS: 59409; 36415; 59025; 80305; 81001; 84112; 85014; 85018; 85025; 86850; 87086; 94761; C1758; C9803; G0283; G0463; J0290; U0003; U0005

== ENCOUNTER → 2021-09-06 10:31 | Outpatient (CLI) | payer MEDICARE, OTHER, SELFPAY ==
--- NOTE | 2021-09-06 10:36 | XR_ITS ---
FINAL REPORT CLINICAL HISTORY: POSTERIOR RIGHT KNEE PAIN, SWELLING, UNSTABLE RIGHT KNEE COMPARISON: 10/09/2020 FINDINGS: RIGHT KNEE Three views of the right knee reveal no evidence of fracture or dislocation. The bony alignment is normal. The joint spaces are preserved. There is no evidence of joint effusion. No localized soft tissue abnormality is identified. IMPRESSION: No acute abnormality identified. Reviewed, Interpreted and Dictated by Obinna Chen III, MD Transcribed by Mere Lu Authenticated and [facility]
== END ==
PROVIDERS: PCP Nurse Practitioner Family; Visit Provider Nurse Practitioner Family
DX: M25.561 Pain in right knee (principal); M25.461 Effusion, right knee; M25.361 Other instability, right knee
CPT/HCPCS: 73562; 97760

== ENCOUNTER 2021-09-06 11:14 | Outpatient (RCR) | payer MEDICARE, OTHER, SELFPAY | END 2021-09-06 12:15 | disposition home or self-care (01) | LOC: PT 11:14 | PROVIDERS: Visit Provider Nurse Practitioner Family | DX: M25.561 Pain in right knee (principal); M25.361 Other instability, right knee | CPT/HCPCS: 97760 ==

== ENCOUNTER → 2021-09-08 10:47 | Outpatient (CLI) | payer MEDICARE, OTHER, SELFPAY ==
--- NOTE | 2021-09-08 10:48 | MR_ITS ---
FINAL REPORT CLINICAL HISTORY: POSTERIOR KNEE PAIN, SWELLING, UNSTABLE RIGHT KNEE COMPARISON: 11/11/2020 FINDINGS: Multiplanar MR imaging of the right knee was performed without contrast. The medial and lateral menisci are intact without evidence of meniscal tear. The anterior and posterior cruciate ligaments are intact. The medial collateral ligament and lateral ligamentous complex are intact. The patellar and quadriceps tendons are intact. There is no evidence of fracture. No focal abnormality is identified of the articular cartilage. Small joint effusion is seen. The musculature is intact. There is a moderate, ruptured popliteal cyst which is partially improved. IMPRESSION: Partially improved moderate ruptured popliteal cyst. Reviewed, Interpreted and Dictated by Obinna Chen III, MD Transcribed by Ro Jordan Authenticated and [facility]
== END ==
PROVIDERS: PCP Nurse Practitioner Family; Visit Provider Nurse Practitioner Family
DX: M25.561 Pain in right knee (principal); M25.461 Effusion, right knee; M25.361 Other instability, right knee
CPT/HCPCS: 73721

== ENCOUNTER → 2021-09-28 15:24 | Outpatient (CLI) | payer MEDICARE, OTHER, SELFPAY ==
[2021-09-28 16:41] LABS: Basophils # 0.1 K/mm3 (0-0.2); Basophils % 1.6 % (0.1-2.0); Eosinophils # 0.3 K/mm3 (0.0-0.4); Eosinophils % 5.3 % (0.1-12.0); Hematocrit 41.7 % (37.0-47.0); Hemoglobin 13.8 g/dL (12.2-16.2); Lymphocytes # 1.7 K/mm3 (0.7-4.5); Lymphocytes % 27.5 % (10-50); Mean Corpuscular Hemoglobin 33.4 pg (27.0-31.2); Mean Corpuscular Volume 101.2 fl (81-99); Mean Platelet Volume 9.4 fl (7.4-10.4); Monocytes # 0.6 K/mm3 (0.1-1.0); Monocytes % 9.2 % (1.7-9.3); Neutrophils # 3.5 K/mm3 (1.8-7.8); Neutrophils % 56.3 % (37.0-80.0); Platelet Count 215 K/mm3 (142-424); Red Blood Count 4.13 M/mm3 (4.20-5.40); Red Cell Distribution Width 13.6 % (11.5-17.5); White Blood Count 6.2 K/mm3 (4.8-10.8)
== END ==
PROVIDERS: PCP Nurse Practitioner Family; Visit Provider Nurse Practitioner Obstetrics & Gynecology
DX: Z39.2 Encounter for routine postpartum follow-up (principal)
CPT/HCPCS: 36415; 85025

== ENCOUNTER → 2021-10-12 13:11 | Outpatient (CLI) | payer MEDICARE, OTHER, SELFPAY ==
--- NOTE | 2021-10-12 13:16 | XR_ITS ---
FINAL REPORT CLINICAL HISTORY: knee pain FINDINGS: RIGHT KNEE: Four views of the right knee obtained. There is no acute fracture or dislocation. The joint spaces are intact. There is a small joint effusion. IMPRESSION: No acute fracture. Small joint effusion. Reviewed, Interpreted and Dictated by Giancarlo Fernandez MD Transcribed by Wilma Ko Authenticated and [facility]
== END ==
PROVIDERS: PCP Nurse Practitioner Family; Visit Provider Orthopaedic Surgery
DX: M25.561 Pain in right knee (principal)
CPT/HCPCS: 73564

== ENCOUNTER → 2022-03-10 13:05 | Outpatient (CLI) | payer MEDICARE, OTHER, SELFPAY | PROVIDERS: PCP Nurse Practitioner Family; Visit Provider Nurse Practitioner | DX: Z11.1 Encounter for screening for respiratory tuberculosis (principal) | CPT/HCPCS: 86580 ==

== ENCOUNTER 2022-03-14 11:14 | Emergency (ER) | payer MEDICARE, OTHER, SELFPAY ==
[2022-03-14 11:27] VITALS: BP 127/88; PULSE 97; RESP 16; TEMP 36.6; O2SAT 98; BMI 21.4
--- NOTE | 2022-03-14 11:35 | XR_ITS ---
FINAL REPORT CLINICAL HISTORY: right lower rib pain, back pain COMPARISON: 05/24/2021 FINDINGS: CHEST TWO-VIEW The lungs are clear. There is no evidence of effusion or other pleural disease. The mediastinum as a normal appearance. The cardiac silhouette is unremarkable. IMPRESSION: No acute findings. Reviewed, Interpreted and Dictated by Nils Henry MD Transcribed by Joni Dougherty Authenticated and [facility]
--- NOTE | 2022-03-14 11:53 | HMH.EDGENADL ---
Discharge Plan Disposition Patient Disposition: Home, Self-Care Condition: Fair Prescriptions Prescriptions: New methocarbamol [Methocarbamol] 750 mg tablet 750 mg PO Q6 PRN (Reason: Muscle Spasm) Qty: 30 0RF benzonatate 200 mg capsule 200 mg PO BID PRN (Reason: cough) Qty: 30 0RF No Action ferrous sulfate 325 mg (65 mg iron) tablet 325 mg PO DAILY topiramate [Topamax] 25 mg tablet 10 mg PO DAILY norgestimate-ethinyl estradiol [Sprintec (28)] 0.25-35 mg-mcg tablet 1 tab PO DAILY Qty: 28 11RF albuterol sulfate [Ventolin HFA] 90 mcg/actuation HFA aerosol inhaler 2 puff IH Q4HP PRN (Reason: Shortness Of Breath) hydroxyzine HCl 10 MG tablet 10 mg PO BIDP PRN (Reason: Anxiety) acetaminophen 325 MG tablet 650 mg PO Q4HP PRN (Reason: Mild Pain) 0RF Referrals Follow up/Referrals: Divina Gray APRN [Primary Care Provider] - See instructions Clinical Impressions Clinical Impression: Acute chest wall pain Stand Alone Forms Stand Alone Forms: Work/School Release Instructions Patient Instructions: DI for Rib Contusion Discharge ED Provider: Raman Onofre General Adult HPI General Chief complaint: PAIN Stated complaint: lower back pain, rt side pain Time Seen by Provider: 03/14/22 11:20 Mode of Arrival: Ambulatory Source of Information: Patient Limitations: No Limitations Description of Symptoms (Recalled from ER Triage Doc. by RN): Pt reports i've been coughing for 9 weeks, yellow thick sputum, and two nights ago suddenly had this low back right lower ribcage pain that is getting worse ; Pt reports PMHx scoliosis, kyphosis, recently started smoking History of Present Illness HPI narrative: Patient is a 26-year-old female with past medical history of scoliosis who presents with concern for right-sided chest wall pain. She says that she has been coughing for the last 9 weeks. She says that she has yellow sputum production. She says that about 2 days ago she started to get cute onset of right-sided chest wall pain. She says that it feels like it wraps around the side of her chest. She says that it is worse when she takes a deep breath. She says that she feels little bit more short of breath because she cannot get a deep breath. Denies any abdominal pain. Denies any other trauma she can think of. Denies any fever or chills. She states that she has talked to her PCP about the persistent cough but they have not figured out the root cause. Related Data Home Medications Medication Instructions Recorded Confirmed albuterol sulfate 90 mcg/actuation 2 puff inhalation Q4HP PRN 06/07/21 10/12/21 aerosol inhaler (Ventolin HFA) Shortness Of Breath hydroxyzine HCl 10 mg tablet 10 mg PO BIDP PRN Anxiety 08/15/21 10/12/21 ferrous sulfate 325 mg (65 mg 325 mg PO DAILY 08/31/21 10/12/21 iron) tablet topiramate 25 mg tablet (Topamax) 10 mg PO DAILY 08/31/21 10/12/21 Previous Rx's Medication Instructions Recorded acetaminophen 325 mg tablet 650 mg PO Q4HP PRN Mild Pain 08/17/21 norgestimate 0.25 mg-ethinyl 1 tab PO DAILY #28 tabs 09/28/21 estradiol 35 mcg tablet (Sprintec (28)) benzonatate 200 mg capsule 200 mg PO BID PRN cough #30 caps 03/14/22 methocarbamol 750 mg tablet 750 mg PO Q6 PRN Muscle Spasm #30 03/14/22 tabs Allergies Allergy/AdvReac Type Severity Reaction Status Date / Time vancomycin [VANCOMYCIN] Allergy Intermediate RED MAN Verified 10/12/21 13:43 SYNDROME ibuprofen [From Motrin IB] Allergy Mild Ulcers Verified 10/12/21 13:43 [facility] Disclaimer: The information contained in this section may have been updated after the patient was seen, as this information can be updated by other users. Medical History Dyspnea Social History (Updated 10/12/21 @ 16:21 by Dc Watson DO) Smoking Status: Current every day smoker tobacco type: cigarettes packs per day: 1 seco
[2022-03-14 13:14] VITALS: BP 123/76; PULSE 82; RESP 13; TEMP 37
== END 2022-03-14 13:16 | disposition home or self-care (01) ==
PROVIDERS: Emergency Provider Student in an Organized Health Care Education/Training Program; PCP Nurse Practitioner Family
DX: R07.89 Other chest pain (principal); F17.210 Nicotine dependence, cigarettes, uncomplicated
CPT/HCPCS: 71046; 99283; 99284

== ENCOUNTER 2022-03-20 18:28 | Emergency (ER) | payer MEDICARE, OTHER, SELFPAY ==
[2022-03-20 18:30] VITALS: BP 116/31; PULSE 80; RESP 16; TEMP 36.6; O2SAT 98; BMI 21.0
[2022-03-20 18:39] VITALS: BP 116/31; PULSE 79; RESP 18; O2SAT 100
--- NOTE | 2022-03-20 18:52 | HMH.EDABDPAI ---
Discharge Plan Disposition Patient Disposition: Home, Self-Care Condition: Good Prescriptions Prescriptions: New ketorolac 10 mg Tablet 10 mg PO Q6H PRN (Reason: pain.) Qty: 8 0RF No Action ferrous sulfate 325 mg (65 mg iron) tablet 325 mg PO DAILY topiramate [Topamax] 25 mg tablet 10 mg PO DAILY norgestimate-ethinyl estradiol [Sprintec (28)] 0.25-35 mg-mcg tablet 1 tab PO DAILY Qty: 28 11RF albuterol sulfate [Ventolin HFA] 90 mcg/actuation HFA aerosol inhaler 2 puff IH Q4HP PRN (Reason: Shortness Of Breath) hydroxyzine HCl 10 MG tablet 10 mg PO BIDP PRN (Reason: Anxiety) acetaminophen 325 MG tablet 650 mg PO Q4HP PRN (Reason: Mild Pain) 0RF methocarbamol [Methocarbamol] 750 mg tablet 750 mg PO Q6 PRN (Reason: Muscle Spasm) Qty: 30 0RF benzonatate 200 mg capsule 200 mg PO BID PRN (Reason: cough) Qty: 30 0RF Referrals Follow up/Referrals: Divina Gray APRN [Primary Care Provider] - See instructions Activity Restrictions/Add. Instructions Additional Instructions/Restrictions: Follow-up with your primary care doctor if you are not better in a few days. Your work-up today did not show any dangerous conditions. Your labs are completely normal. Return to the emergency department if you feel worse in any way. Clinical Impressions Clinical Impression: Musculoskeletal chest pain Instructions Patient Instructions: DI for Acute Abdominal Pain, DI for Atypical Chest Pain Discharge ED Provider: Enrrique Rodriguez Abdominal Pain HPI General Chief Complaint: Abdominal Pain Stated Complaint: back pain, rib pain Time Seen by Provider: 03/20/22 18:46 History of Present Illness HPI narrative: The patient complains of right lower anterior chest/right upper quadrant abdominal pain. She was seen in this emergency department last week for the same symptoms and discharged home with a diagnosis of rib contusion. She saw her primary care provider today who decided to send her to the emergency department again for reevaluation. The patient denies any fevers, nausea, vomiting, diarrhea. Related Data Home Medications Medication Instructions Recorded Confirmed albuterol sulfate 90 mcg/actuation 2 puff inhalation Q4HP PRN 06/07/21 10/12/21 aerosol inhaler (Ventolin HFA) Shortness Of Breath hydroxyzine HCl 10 mg tablet 10 mg PO BIDP PRN Anxiety 08/15/21 10/12/21 ferrous sulfate 325 mg (65 mg 325 mg PO DAILY 08/31/21 10/12/21 iron) tablet topiramate 25 mg tablet (Topamax) 10 mg PO DAILY 08/31/21 10/12/21 Previous Rx's Medication Instructions Recorded acetaminophen 325 mg tablet 650 mg PO Q4HP PRN Mild Pain 08/17/21 norgestimate 0.25 mg-ethinyl 1 tab PO DAILY #28 tabs 09/28/21 estradiol 35 mcg tablet (Sprintec (28)) benzonatate 200 mg capsule 200 mg PO BID PRN cough #30 caps 03/14/22 methocarbamol 750 mg tablet 750 mg PO Q6 PRN Muscle Spasm #30 03/14/22 tabs ketorolac 10 mg tablet 10 mg PO Q6H PRN pain. #8 tabs 03/20/22 Allergies Allergy/AdvReac Type Severity Reaction Status Date / Time vancomycin [VANCOMYCIN] Allergy Intermediate RED MAN Verified 10/12/21 13:43 SYNDROME ibuprofen [From Motrin IB] Allergy Mild Ulcers Verified 10/12/21 13:43 PFS PFS Disclaimer: The information contained in this section may have been updated after the patient was seen, as this information can be updated by other users. Medical History Dyspnea Social History (Updated 10/12/21 @ 16:21 by Dc Watson DO) Smoking Status: Current some day smoker tobacco type: cigarettes packs per day: 1 second hand exposure: No alcohol intake: never substance use type: denies use current occupational status: unemployed Travel in the last 8 weeks: None household members: family housing: house current occupation: [employer] current occupational exposures/hazards: No caffeine: Yes ROS Obtained:
[2022-03-20 19:00] LABS: Microscopic, Urine URINE MICROSCOPIC (MICROSCOPIC)
[2022-03-20 19:09] LABS: Appearance,Urine CLEAR (Clear); Bilirubin,Urine Negative (Negative); Blood, Urine TRACE-L (Negative); Color,Urine YELLOW (Yellow); Glucose,Urine (UA) Negative (Negative); Ketones,Urine Negative (Negative); Leukocyte Esterase,Urine Negative (Negative); Nitrate,Urine Negative (Negative); Protein,Urine Negative (Negative); Urobilinogen,Urine 0.2 EU/dl (0.2)
[2022-03-20 19:10] LABS: Chloride 107 mmol/L (98-107); Sodium 139 mmol/L (136-145)
[2022-03-20 19:13] LABS: Alanine Aminotransferase 14 U/L (12-78); Albumin Level 4.8 g/dl (3.5-5.0); Albumin/Globulin Ratio 1.5 (1.1-1.8); Alkaline Phosphatase 79 U/L (38-126); Aspartate Amino Transferase 27 U/L (14-36); Bilirubin,Total 0.3 mg/dl (0.2-1.3); Blood Urea Nitrogen 11 mg/dl (7-17); Carbon Dioxide 25 mmol/L (22.0-30.0); Creatinine Clearance Estimated 99 mL/min (50-200); Estimated Glomerular Filt Rate 100 ml/min (>60); GFR (African American) 121 ML/MIN (>60); Globulin 3.3 g/dL (1.3-3.2); Total Protein,Serum 8.1 g/dl (6.3-8.2)
[2022-03-20 19:14] LABS: Calcium 9.1 mg/dl (8.4-10.2); Glucose 91 mg/dl (74-100)
[2022-03-20 19:16] LABS: Basophils # 0.1 K/mm3 (0-0.2); Basophils % 1.3 % (0.1-2.0); Eosinophils # 0.2 K/mm3 (0.0-0.4); Eosinophils % 2.3 % (0.1-12.0); Hematocrit 42.4 % (37.0-47.0); Hemoglobin 13.6 g/dL (12.2-16.2); Lymphocytes % 25.8 % (10-50); Mean Corpuscular HGB Conc 32.2 g/dL (31.8-35.4); Mean Corpuscular Hemoglobin 30.1 pg (27.0-31.2); Mean Corpuscular Volume 93.6 fl (81-99); Mean Platelet Volume 9.2 fl (7.4-10.4); Monocytes # 0.4 K/mm3 (0.1-1.0); Monocytes % 5.7 % (1.7-9.3); Neutrophils # 4.9 K/mm3 (1.8-7.8); Neutrophils % 64.8 % (37.0-80.0); Platelet Count 261 K/mm3 (142-424); Red Blood Count 4.53 M/mm3 (4.20-5.40); Red Cell Distribution Width 13.4 % (11.5-17.5); White Blood Count 7.6 K/mm3 (4.8-10.8)
[2022-03-20 19:18] LABS: HCG Qualitative, Serum Negative (Negative)
[2022-03-20 19:20] LABS: Bacteria,Urine Trace /lpf; RBC,Urine Occasional #/hpf (0-3); WBC,Urine Occasional #/hpf (0-3)
[2022-03-20 19:28] VITALS: BP 119/71; PULSE 71; RESP 18; TEMP 36.6; O2SAT 100
== END 2022-03-20 19:32 | disposition home or self-care (01) ==
PROVIDERS: Emergency Provider Emergency Medicine; PCP Nurse Practitioner Family
DX: R07.89 Other chest pain (principal); F17.210 Nicotine dependence, cigarettes, uncomplicated
CPT/HCPCS: 80053; 81001; 84703; 85025; 96374; 99285

== ENCOUNTER → 2022-03-30 13:52 | Outpatient (CLI) | payer MEDICARE, OTHER, SELFPAY ==
--- NOTE | 2022-03-30 13:56 | CT_ITS ---
FINAL REPORT TECHNIQUE: Axial images through the abdomen and pelvis were performed without contrast.This study was performed with techniques to keep radiation doses as low as reasonably achievable, (ALARA). Individualized dose reduction techniques using automated exposure control or adjustment of mA and/or kV according to the patient's size were employed. CLINICAL HISTORY: RUQ PAIN,ABD SWELLING,NAUSEA FINDINGS: ABDOMEN: The lung bases are clear. The heart size is normal. Limited images of the liver are unremarkable. The spleen and gallbladder are normal. No adrenal mass is identified. The aorta is normal in caliber. There is no significant free fluid or adenopathy. There are multiple, tiny bilateral nonobstructing renal stones measuring 1-2 mm. There is no hydronephrosis. PELVIS: The appendix is not identified. Uterus is anteverted. There is a benign-appearing cyst in the left adnexa measuring 4.0 cm. The urinary bladder is unremarkable. There is no significant free fluid or adenopathy. IMPRESSION: Bilateral, nonobstructing renal stones without hydronephrosis. Benign-appearing left adnexal cyst. Reviewed, Interpreted and Dictated by Giancarlo Fernandez MD Transcribed by Mary Cooper Authenticated and . [facility]
== END ==
PROVIDERS: PCP Nurse Practitioner Family; Visit Provider Nurse Practitioner Family
DX: R10.11 Right upper quadrant pain (principal); R19.00 Intra-abdominal and pelvic swelling, mass and lump, unspecified site; R11.0 Nausea
CPT/HCPCS: 74176

== ENCOUNTER 2022-04-02 14:51 | Emergency (ER) | payer MEDICARE, OTHER, SELFPAY ==
[2022-04-02 15:10] VITALS: BP 135/81; PULSE 70; RESP 20; TEMP 37; O2SAT 98; BMI 22.1
--- NOTE | 2022-04-02 15:12 | XR_ITS ---
PROCEDURE INFORMATION: Exam: XR Left Hand Exam date and time: 04/02/2022 3:11 PM Age: 26 years old Clinical indication: Pain; Hand; Left; Additional info: Swollen thumb TECHNIQUE: Imaging protocol: Radiologic exam of the Left hand. Views: 3 or more views. COMPARISON: CR WRL3 WRIST-3 VIEWS-LT 05/01/2016 9:37 PM FINDINGS: Bones/joints: Normal. No fracture or malalignment. Joint surfaces preserved. Soft tissues: Normal. IMPRESSION: Normal left hand.
--- NOTE | 2022-04-02 15:13 | XR_ITS ---
PROCEDURE INFORMATION: Exam: XR Left Wrist Exam date and time: 04/02/2022 3:13 PM Age: 26 years old Clinical indication: Swelling; Fingers; Left; Additional info: Swollen thumb TECHNIQUE: Imaging protocol: Radiologic exam of the Left wrist. Views: 3 or more views. COMPARISON: CR WRL3 WRIST-3 VIEWS-LT 05/01/2016 9:37 PM FINDINGS: Bones/joints: Osseous structures and joint surfaces are intact. No fracture or malalignment. Soft tissues: Normal. IMPRESSION: Normal left wrist.
--- NOTE | 2022-04-02 15:25 | EXP.UTC ---
Discharge Plan Disposition Patient Disposition: Home, Self-Care Condition: Good Prescriptions Prescriptions: No Action ferrous sulfate 325 mg (65 mg iron) tablet 325 mg PO DAILY topiramate [Topamax] 25 mg tablet 10 mg PO DAILY norgestimate-ethinyl estradiol [Sprintec (28)] 0.25-35 mg-mcg tablet 1 tab PO DAILY Qty: 28 11RF albuterol sulfate [Ventolin HFA] 90 mcg/actuation HFA aerosol inhaler 2 puff IH Q4HP PRN (Reason: Shortness Of Breath) hydroxyzine HCl 10 MG tablet 10 mg PO BIDP PRN (Reason: Anxiety) acetaminophen 325 MG tablet 650 mg PO Q4HP PRN (Reason: Mild Pain) 0RF ketorolac 10 mg Tablet 10 mg PO Q6H PRN (Reason: pain.) Qty: 8 0RF methocarbamol [Methocarbamol] 750 mg tablet 750 mg PO Q6 PRN (Reason: Muscle Spasm) Qty: 30 0RF benzonatate 200 mg capsule 200 mg PO BID PRN (Reason: cough) Qty: 30 0RF Referrals Follow up/Referrals: Dc Watson DO [Staff Physician] - See instructions Divina Gray APRN [Primary Care Provider] - See instructions Activity Restrictions/Add. Instructions Additional Instructions/Restrictions: Rest the extremity, Elevate the extremity as tolerated while you are resting. Take tylenol for pain. Follow up with Dr. Gann (orthopedics). Sometimes there can be fractures that don't show up well on the first set of x-rays. I put in a referral but you need to call his office and schedule an appointment. Follow up with your regular doctor. GO TO THE ER FOR ANY WORSENING SYMPTOMS Clinical Impressions Clinical Impression: Left thumb sprain Instructions Patient Instructions: DI for Ulnar Collateral Ligament Sprain of Thumb, Ulnar Collateral Ligament Sprain of Thumb Discharge ED Provider: Kb Burdick [facility] General Stated complaint: AO 04/02 1230, Left hand and wrist pain Time Seen by Provider: 04/02/22 15:25 History of Present Illness Provider Complaint: She states that she slipped in something her son spilled and she came down on her left hand. She is complaining of right thumb pain. 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 She denies any other injury. Related Data Home Medications Medication Instructions Recorded Confirmed albuterol sulfate 90 mcg/actuation 2 puff inhalation Q4HP PRN 06/07/21 10/12/21 aerosol inhaler (Ventolin HFA) Shortness Of Breath hydroxyzine HCl 10 mg tablet 10 mg PO BIDP PRN Anxiety 08/15/21 10/12/21 ferrous sulfate 325 mg (65 mg 325 mg PO DAILY 08/31/21 10/12/21 iron) tablet topiramate 25 mg tablet (Topamax) 10 mg PO DAILY 08/31/21 10/12/21 Previous Rx's Medication Instructions Recorded acetaminophen 325 mg tablet 650 mg PO Q4HP PRN Mild Pain 08/17/21 norgestimate 0.25 mg-ethinyl 1 tab PO DAILY #28 tabs 09/28/21 estradiol 35 mcg tablet (Sprintec (28)) benzonatate 200 mg capsule 200 mg PO BID PRN cough #30 caps 03/14/22 methocarbamol 750 mg tablet 750 mg PO Q6 PRN Muscle Spasm #30 03/14/22 tabs ketorolac 10 mg tablet 10 mg PO Q6H PRN pain. #8 tabs 03/20/22 Allergies Allergy/AdvReac Type Severity Reaction Status Date / Time vancomycin [VANCOMYCIN] Allergy Intermediate RED MAN Verified 04/02/22 15:33 SYNDROME ibuprofen [From Motrin IB] Allergy Mild Ulcers Verified 04/02/22 15:33 PFS PFS Disclaimer: The information contained in this section may have been updated after the patient was seen, as this information can be updated by other users. Medical History Dyspnea Social History Smoking Status: Current some day smoker tobacco type: cigarettes packs per day: 1 second hand exposure: No alcohol intake: never substance use type: denies use current occupational status: unemployed Travel in the last 8 weeks: None household members: family housing: house current occupation: [employer] current occupational exposures/hazards: No caffeine: Yes
[2022-04-02 16:05] VITALS: BP 135/81; PULSE 70; RESP 20; TEMP 37; O2SAT 98
== END 2022-04-02 16:04 | disposition home or self-care (01) ==
PROVIDERS: Emergency Provider Nurse Practitioner Family; PCP Nurse Practitioner Family
DX: S63.602A Unspecified sprain of left thumb, initial encounter (principal)
CPT/HCPCS: 73110; 73130; 99212; 99213; G0463

== ENCOUNTER 2022-06-25 12:34 | Emergency (ER) | payer MEDICARE, SELFPAY ==
[2022-06-25 12:34] VITALS: BP 118/62; PULSE 62; RESP 18; TEMP 36.6; O2SAT 98; BMI 21.4
[2022-06-25 12:41] VITALS: BP 118/62; PULSE 64; RESP 18; O2SAT 99
[2022-06-25 12:42] LABS: Microscopic, Urine URINE MICROSCOPIC (MICROSCOPIC)
[2022-06-25 12:44] LABS: Appearance,Urine SL CLOUDY (Clear); Bilirubin,Urine Negative (Negative); Blood, Urine 1+ (Negative); Color,Urine YELLOW (Yellow); Glucose,Urine (UA) Negative (Negative); Ketones,Urine Negative (Negative); Leukocyte Esterase,Urine TRACE (Negative); Nitrate,Urine Negative (Negative); PH,Urine 7.5 (5.0-8.5); Protein,Urine Negative (Negative)
[2022-06-25 12:46] VITALS: BMI 21.4
[2022-06-25 12:52] LABS: Basophils % 0.4 % (0.1-2.0); Eosinophils # 0.8 K/mm3 (0.0-0.4); Hematocrit 40.6 % (37.0-47.0); Hemoglobin 12.6 g/dL (12.2-16.2); Lymphocytes # 1.6 K/mm3 (0.7-4.5); Mean Corpuscular Hemoglobin 28.7 pg (27.0-31.2); Mean Corpuscular Volume 92.6 fl (81-99); Mean Platelet Volume 8.8 fl (7.4-10.4); Monocytes # 0.5 K/mm3 (0.1-1.0); Monocytes % 6.8 % (1.7-9.3); Neutrophils # 3.7 K/mm3 (1.8-7.8); Neutrophils % 56.8 % (37.0-80.0); Platelet Count 239 K/mm3 (142-424); Red Blood Count 4.39 M/mm3 (4.20-5.40); Red Cell Distribution Width 13.9 % (11.5-17.5); White Blood Count 6.6 K/mm3 (4.8-10.8)
[2022-06-25 12:53] LABS: Urine Pregnancy, HCG Qual. Negative (Negative)
[2022-06-25 12:55] LABS: Chloride 97 mmol/L (98-107); Sodium 139 mmol/L (136-145)
[2022-06-25 12:55] LABS: Bacteria,Urine 2+ /lpf; Mucus,Urine Trace /lpf
[2022-06-25 12:56] LABS: Potassium 4.2 mmoL/L (3.5-5.1)
[2022-06-25 12:59] LABS: Anion Gap 18.2 mEq/L (5-15); Blood Urea Nitrogen 8 mg/dl (7-17); Calcium 9.1 mg/dl (8.4-10.2); Carbon Dioxide 28 mmol/L (22.0-30.0); Creatinine Clearance Estimated 87 mL/min (50-200); Estimated Glomerular Filt Rate 85 ml/min (>60); GFR (African American) 103 ML/MIN (>60); Glucose 94 mg/dl (74-100)
[2022-06-25 13:00] VITALS: BP 103/66; PULSE 57; RESP 16; O2SAT 100
--- NOTE | 2022-06-25 13:06 | PC.NURSE ---
DR AMEZCUA AT BEDSIDE
--- NOTE | 2022-06-25 13:09 | CT_ITS ---
PROCEDURE INFORMATION: Exam: CT Abdomen And Pelvis Without Contrast Exam date and time: 06/25/2022 1:21 PM Age: 27 years old Clinical indication: Abdominal pain; Generalized; Patient HX: Hematuria TECHNIQUE: Imaging protocol: Computed tomography of the abdomen and pelvis without contrast. Radiation optimization: All CT scans at this facility use at least one of these dose optimization techniques: automated exposure control; mA and/or kV adjustment per patient size (includes targeted exams where dose is matched to clinical indication); or iterative reconstruction. REPORTING DATA: Count of CT and Cardiac NM exams in prior 12 months: This patient has received [address] and 0 known cardiac nuclear medicine studies in the 12 months prior to the current study. COMPARISON: CT ABDOMEN PELVIS WO CON 03/30/2022 2:18 PM COMPARISON MORE: SPTHORWO CT thoracic spine wo con 04/04/2018 1:09 PM FINDINGS: Lungs: 11 mm nodule in the posterior sulcus of the left lower lobe (image 15, series 3). No other nodules or airspace consolidation. No pleural effusions. Liver: No mass. No evidence of fat deposition. No surrounding fluid. Gallbladder and bile ducts: No calcified stones or wall thickening. No ductal dilation. Pancreas: No masses. No ductal dilation. Spleen: No splenomegaly. No masses or surrounding fluid. Adrenal glands: No mass. Kidneys and ureters: Left kidney has several nonobstructing stones that measure 2 mm. No right kidney stones. No hydroureteronephrosis or solid renal masses. Stomach and bowel: No intestinal masses, bowel wall thickening, or abnormal dilatation. Appendix: No evidence of appendicitis. Appendix is retrocecal. Intraperitoneal space: A trace of free fluid is present. Vasculature: No abdominal aortic aneurysm. No other significant abnormalities. Lymph nodes: No enlarged lymph nodes. Urinary bladder: Bladder volume is small and has no wall thickening or calcified stones. Reproductive: Anteverted uterus is appropriate in size and shape and has no myometrial masses. No adnexal masses. Bones/joints: No acute fracture or bone lesions. Soft tissues: No masses or other abnormalities. IMPRESSION: 1. Left kidney has at least 5 nonobstructing 2 mm stones that are an interval development since 04/04/2018. No other tract abnormalities. 2. No other acute abnormalities in the abdomen and pelvis. 3. 11 mm left lower lobe lung nodule measured [address] scan dated 03/30/2022 and was not present on CT scan of the thoracic spine dated 04/04/2018. No definite internal fat density is identified. This is likely inflammatory in nature though a neoplastic process is a consideration. Consider FDG PET CT or percutaneous biopsy if clinically warranted.
--- NOTE | 2022-06-25 13:15 | PC.NURSE ---
Patient going to CT via wheelchair
--- NOTE | 2022-06-25 13:25 | PC.NURSE ---
pt return from CT
--- NOTE | 2022-06-25 13:26 | PC.NURSE ---
Patient back from CT
[2022-06-25 13:30] VITALS: BP 110/71; PULSE 57; RESP 16; O2SAT 100
--- NOTE | 2022-06-25 13:48 | PC.NURSE ---
ROUNDED ON PT, ZOFRAN HELPED WITH NAUSEA. UPDATED ON POC. NO NEEDS AT THIS TIME
--- NOTE | 2022-06-25 13:53 | PC.NURSE ---
contacted rad to check on status of CT, rad staff reports it is listed as assigned but not read yet.
--- NOTE | 2022-06-25 13:53 | HMH.EDGENADL ---
Discharge Plan Disposition Patient Disposition: Home, Self-Care Condition: Good Chief Complaint: Abdominal Pain Prescriptions Prescriptions: No Action ferrous sulfate 325 mg (65 mg iron) tablet 325 mg PO DAILY topiramate [Topamax] 25 mg tablet 10 mg PO DAILY norgestimate-ethinyl estradiol [Sprintec (28)] 0.25-35 mg-mcg tablet 1 tab PO DAILY Qty: 28 11RF albuterol sulfate [Ventolin HFA] 90 mcg/actuation HFA aerosol inhaler 2 puff IH Q4HP PRN (Reason: Shortness Of Breath) hydroxyzine HCl 10 MG tablet 10 mg PO BIDP PRN (Reason: Anxiety) acetaminophen 325 MG tablet 650 mg PO Q4HP PRN (Reason: Mild Pain) 0RF ketorolac 10 mg Tablet 10 mg PO Q6H PRN (Reason: pain.) Qty: 8 0RF methocarbamol [Methocarbamol] 750 mg tablet 750 mg PO Q6 PRN (Reason: Muscle Spasm) Qty: 30 0RF benzonatate 200 mg capsule 200 mg PO BID PRN (Reason: cough) Qty: 30 0RF Referrals Follow up/Referrals: Divina Gray APRN [Primary Care Provider] - See instructions Activity Restrictions/Add. Instructions Additional Instructions/Restrictions: Follow-up PCP regarding lung nodule. Return to ER for fever, shortness of breath Clinical Impressions Clinical Impression: Incidental lung nodule, greater than or equal to 8mm, Hematuria Instructions Patient Instructions: DI for Acute Abdominal Pain Discharge ED Provider: Gennaro Escalante General Adult HPI General Chief complaint: Abdominal Pain Stated complaint: Abdominal pain Time Seen by Provider: 06/25/22 12:36 Mode of Arrival: Ambulatory Source of Information: Patient Limitations: No Limitations Description of Symptoms (Recalled from ER Triage Doc. by RN): PT C/O LOWER SHARP ABDOMINAL PAIN THAT BEGAN ABOUT 20 MINUTES [employer]. LMP 2 WEEKS AGO. DENIES N/V/D. BM THIS AM History of Present Illness HPI narrative: 27yo F presents to the ER secondary to suprapubic pain. Began approximately 1230. Denies fever. Was in her usual state of health prior to onset of symptoms. Had similar pain when she was in labor with her child roughly 10 months ago. No dysuria, no vaginal discharge Related Data Home Medications Medication Instructions Recorded Confirmed albuterol sulfate 90 mcg/actuation 2 puff inhalation Q4HP PRN 06/07/21 04/13/22 aerosol inhaler (Ventolin HFA) Shortness Of Breath hydroxyzine HCl 10 mg tablet 10 mg PO BIDP PRN Anxiety 08/15/21 04/13/22 ferrous sulfate 325 mg (65 mg 325 mg PO DAILY 08/31/21 04/13/22 iron) tablet topiramate 25 mg tablet (Topamax) 10 mg PO DAILY 08/31/21 04/13/22 Previous Rx's Medication Instructions Recorded acetaminophen 325 mg tablet 650 mg PO Q4HP PRN Mild Pain 08/17/21 norgestimate 0.25 mg-ethinyl 1 tab PO DAILY #28 tabs 09/28/21 estradiol 35 mcg tablet (Sprintec (28)) benzonatate 200 mg capsule 200 mg PO BID PRN cough #30 caps 03/14/22 methocarbamol 750 mg tablet 750 mg PO Q6 PRN Muscle Spasm #30 03/14/22 tabs ketorolac 10 mg tablet 10 mg PO Q6H PRN pain. #8 tabs 03/20/22 Allergies Allergy/AdvReac Type Severity Reaction Status Date / Time vancomycin [VANCOMYCIN] Allergy Intermediate RED MAN Verified 04/13/22 13:47 SYNDROME ibuprofen [From Motrin IB] Allergy Mild Ulcers Verified 04/13/22 13:47 [facility] Disclaimer: The information contained in this section may have been updated after the patient was seen, as this information can be updated by other users. Medical History Dyspnea Surgical History H/O bilateral breast reduction surgery S/P knee surgery Family History Other No significant family history Social History Smoking Status: Former smoker second hand exposure: No alcohol intake: never substance use type: denies use current occupational status: unemployed Tra
[2022-06-25 14:00] VITALS: BP 109/71; PULSE 68; RESP 16; O2SAT 99
--- NOTE | 2022-06-25 14:25 | PC.NURSE ---
DR AMEZCUA AT BEDSIDE TO UPDATE PT
[2022-06-25 14:38] VITALS: BP 112/68; PULSE 60; RESP 17; TEMP 36.7; O2SAT 98
== END 2022-06-25 14:40 | disposition home or self-care (01) ==
PROVIDERS: Emergency Provider Family Medicine; PCP Nurse Practitioner Family
DX: R10.30 Lower abdominal pain, unspecified (principal); Z87.891 Personal history of nicotine dependence
CPT/HCPCS: 74176; 80048; 81001; 81025; 85025; 87086; 96374; 99284; 99285; J2405

== ENCOUNTER → 2022-08-10 14:31 | Outpatient (CLI) | payer MEDICARE, SELFPAY ==
--- NOTE | 2022-08-10 14:31 | CT_ITS ---
FINAL REPORT TECHNIQUE: Axial images were obtained through the chest without contrast. CLINICAL HISTORY: Lung nodule COMPARISON: CT abdomen and pelvis 06/25/2022 FINDINGS: There is no mediastinal mass or adenopathy. The heart size is normal. There is no pericardial or pleural effusion. Limited images of the upper abdomen are unremarkable. In the left lower lobe is a 10 mm nodule which is stable and unchanged. No other nodules are identified. IMPRESSION: Left lower lobe nodule. 6-month follow-up recommended. Reviewed, Interpreted and Dictated by Giancarlo Fernandez MD Transcribed by Alejandra Shaw Authenticated and [facility]
== END ==
PROVIDERS: PCP Nurse Practitioner Family; Visit Provider Internal Medicine Pulmonary Disease
DX: R91.8 Other nonspecific abnormal finding of lung field (principal)
CPT/HCPCS: 71250

== ENCOUNTER 2022-11-27 18:33 | Emergency (ER) | payer MEDICARE, SELFPAY ==
--- NOTE | 2022-11-27 18:30 | ECG_ITS ---
APPROVED REPORT Exam: Resting ECG HR:86 bpm ECG Measurements Heart Rate 86 AXES NC 120 P 74 QRSd 85 QRS 68 QT 355 T 63 QTc 399 Conclusion SINUS RHYTHM MODERATE ST DEPRESSION [0.05+ mV ST DEPRESSION] ABNORMAL ECG UNCONFIRMED REPORT Electronically signed by : Johnathan Fuller MD 11/27/2022 19:35:23
[2022-11-27 18:55] VITALS: BMI 21.0
--- NOTE | 2022-11-27 18:55 | XR_ITS ---
PROCEDURE INFORMATION: Exam: XR Chest Exam date and time: 11/27/2022 7:12 PM Age: 27 years old Clinical indication: Cough; Additional info: Cp TECHNIQUE: Imaging protocol: Radiologic exam of the chest. Views: 2 views. COMPARISON: CT CHEST WO CON 08/10/2022 2:34 PM FINDINGS: Lungs: Unremarkable. No consolidation. Pleural spaces: Unremarkable. No pleural effusion. No pneumothorax. Heart/Mediastinum: Unremarkable. No cardiomegaly. Bones/joints: Mild S shaped curvature of the spine. IMPRESSION: No acute pulmonary findings.
[2022-11-27 18:56] VITALS: BP 119/85; PULSE 77; RESP 20; TEMP 36.9; O2SAT 99; BMI 21.0
[2022-11-27 19:02] VITALS: BP 105/68; RESP 12; O2SAT 99
[2022-11-27 19:05] LABS: Basophils % 0.6 % (0.1-2.0); Eosinophils # 0.1 K/mm3 (0.0-0.4); Eosinophils % 1.9 % (0.1-12.0); Hematocrit 38.7 % (37.0-47.0); Hemoglobin 12.5 g/dL (12.2-16.2); Lymphocytes # 1.2 K/mm3 (0.7-4.5); Mean Corpuscular HGB Conc 32.2 g/dL (31.8-35.4); Mean Corpuscular Hemoglobin 28.7 pg (27.0-31.2); Mean Corpuscular Volume 89.1 fl (81-99); Mean Platelet Volume 9.1 fl (7.4-10.4); Monocytes # 0.5 K/mm3 (0.1-1.0); Monocytes % 10.8 % (1.7-9.3); Neutrophils # 3.1 K/mm3 (1.8-7.8); Neutrophils % 62.7 % (37.0-80.0); Platelet Count 236 K/mm3 (142-424); Red Blood Count 4.34 M/mm3 (4.20-5.40); Red Cell Distribution Width 14.6 % (11.5-17.5)
[2022-11-27 19:06] LABS: Chloride 103 mmol/L (98-107); Potassium 3.5 mmoL/L (3.5-5.1); Sodium 139 mmol/L (136-145)
[2022-11-27 19:08] LABS: Blood Urea Nitrogen 5 mg/dl (7-17); Creatinine Clearance Estimated 98 mL/min (50-200); Estimated Glomerular Filt Rate 99 ml/min (>60); GFR (African American) 120 ML/MIN (>60)
[2022-11-27 19:09] LABS: Alanine Aminotransferase 20 U/L (12-78); Albumin Level 4.3 g/dl (3.5-5.0); Albumin/Globulin Ratio 1.2 (1.1-1.8); Alkaline Phosphatase 81 U/L (38-126); Anion Gap 14.5 mEq/L (5-15); Aspartate Amino Transferase 25 U/L (14-36); Bilirubin,Total 0.2 mg/dl (0.2-1.3); Carbon Dioxide 25 mmol/L (22.0-30.0); Globulin 3.6 g/dL (1.3-3.2); Glucose 108 mg/dl (74-100); Total Protein,Serum 7.9 g/dl (6.3-8.2)
[2022-11-27 19:23] LABS: Troponin I < 0.01 ng/ml (0.00-0.034)
--- NOTE | 2022-11-27 20:07 | HMH.EDGENADL ---
Discharge Plan Disposition Patient Disposition: Home, Self-Care Chief Complaint: Chest Pain Prescriptions Prescriptions: No Action ferrous sulfate 325 mg (65 mg iron) tablet 325 mg PO DAILY topiramate [Topamax] 25 mg tablet 10 mg PO DAILY norgestimate-ethinyl estradiol [Sprintec (28)] 0.25-35 mg-mcg tablet 1 tab PO DAILY Qty: 28 11RF albuterol sulfate [Ventolin HFA] 90 mcg/actuation HFA aerosol inhaler 2 puff IH Q4HP PRN (Reason: Shortness Of Breath) hydroxyzine HCl 10 MG tablet 10 mg PO BIDP PRN (Reason: Anxiety) acetaminophen 325 MG tablet 650 mg PO Q4HP PRN (Reason: Mild Pain) 0RF Referrals Follow up/Referrals: Estella Thomas APRN [Primary Care Provider] - See instructions Activity Restrictions/Add. Instructions Additional Instructions/Restrictions: Call your family doctor to establish care for this visit to the emergency department and schedule follow-up within 48 hours to ensure improvement. If you have any worsening of your condition or any other concerning signs or symptoms, return to the emergency department or your primary care doctor for further evaluation. Follow-up with psychiatry, information provided here. Clinical Impressions Clinical Impression: Chest pain Discharge ED Provider: Andrea Richards General Adult HPI General Chief complaint: Chest Pain Stated complaint: CP Time Seen by Provider: 11/27/22 18:37 Mode of Arrival: Ambulatory Source of Information: Patient Limitations: No Limitations Description of Symptoms (Recalled from ER Triage Doc. by RN): pt to ed c/o chest pain and soa with exertion. pt states the pain is sharp in nature and constant. pt denies n/v. History of Present Illness HPI narrative: 27-year-old female history of anxiety, panic attacks presenting with chest pain. Patient states that chest pain started 2 days prior to arrival. Became stronger today, so came to the ER for further evaluation. Patient states she has been under a lot of stress, recently lost her fianc?. She thinks that her chest pain is due to stress, but it was different today. Today she states my heart felt hot and was uncomfortable. Denies any diaphoresis, nausea or vomiting, syncopal episodes, neurologic deficits, or any other concerns. Pain is substernal, moderate in intensity, does not radiate. Patient states that she is not taking medication for anxiety or depression because it makes her sleepy and is not currently following with her therapist anymore because they change locations. Requesting information for this today. Related Data Home Medications Medication Instructions Recorded Confirmed albuterol sulfate 90 mcg/actuation 2 puff inhalation Q4HP PRN 06/07/21 08/10/22 aerosol inhaler (Ventolin HFA) Shortness Of Breath hydroxyzine HCl 10 mg tablet 10 mg PO BIDP PRN Anxiety 08/15/21 08/10/22 ferrous sulfate 325 mg (65 mg 325 mg PO DAILY 08/31/21 08/10/22 iron) tablet topiramate 25 mg tablet (Topamax) 10 mg PO DAILY 08/31/21 08/10/22 Previous Rx's Medication Instructions Recorded acetaminophen 325 mg tablet 650 mg PO Q4HP PRN Mild Pain 08/17/21 norgestimate 0.25 mg-ethinyl 1 tab PO DAILY #28 tabs 09/28/21 estradiol 35 mcg tablet (Sprintec (28)) Allergies Allergy/AdvReac Type Severity Reaction Status Date / Time vancomycin [VANCOMYCIN] Allergy Intermediate RED MAN Verified 07/20/22 14:24 SYNDROME ibuprofen [From Motrin IB] Allergy Mild Ulcers Verified 07/20/22 14:24 [facility] Disclaimer: The information contained in this section may have been updated after the patient was seen, as this information can be updated by other users. Medical History Dyspnea Nodule of left lung Surgical History H/O bilateral breast reduction surgery H/O laparoscopy S/P knee surgery Family History Other Family history no
[2022-11-27 20:12] VITALS: BP 116/75; PULSE 63; RESP 13; TEMP 36.6; O2SAT 99
[2022-11-27 20:18] LABS: HCG,Quantitative < 2 mIU/ml (0-5.42)
== END 2022-11-27 20:16 | disposition home or self-care (01) ==
PROVIDERS: Emergency Provider Emergency Medicine; PCP Nurse Practitioner
DX: R07.9 Chest pain, unspecified (principal); F41.1 Generalized anxiety disorder
CPT/HCPCS: 71046; 80053; 84484; 84702; 85025; 93005; 99284

== ENCOUNTER 2022-12-01 08:10 | Emergency (ER) | payer MEDICARE, SELFPAY ==
[2022-12-01 08:20] VITALS: BP 120/68; PULSE 67; RESP 18; TEMP 37.2; O2SAT 98; BMI 20.7
--- NOTE | 2022-12-01 08:30 | EXP.UTC ---
Discharge Plan Disposition Patient Disposition: Home, Self-Care Condition: Good Prescriptions Prescriptions: New amoxicillin [amoxicillin] 500 mg tablet 500 mg PO TID 10 Days Qty: 30 0RF gentamicin 0.3 % drops 1 drp ophthalmic (eye) Q4H 7 Days Qty: 5 0RF methylprednisolone 4 mg Tablets,Dose Pack 4 mg PO DIRECTED Qty: 21 0RF rraslfjhwzfbtwf-kcahivvdr-[id number] [Bromfed DM] 2-30-10 mg/5 mL Syrup 5 ml PO Q6H PRN (Reason: Cough) Qty: 240 0RF No Action ferrous sulfate 325 mg (65 mg iron) tablet 325 mg PO DAILY topiramate [Topamax] 25 mg tablet 10 mg PO DAILY norgestimate-ethinyl estradiol [Sprintec (28)] 0.25-35 mg-mcg tablet 1 tab PO DAILY Qty: 28 11RF albuterol sulfate [Ventolin HFA] 90 mcg/actuation HFA aerosol inhaler 2 puff IH Q4HP PRN (Reason: Shortness Of Breath) hydroxyzine HCl 10 MG tablet 10 mg PO BIDP PRN (Reason: Anxiety) acetaminophen 325 MG tablet 650 mg PO Q4HP PRN (Reason: Mild Pain) 0RF Referrals Follow up/Referrals: Provider,Referral, MD [Primary Care Provider] - See instructions Activity Restrictions/Add. Instructions Additional Instructions/Restrictions: Drink plenty of fluids. Take tylenol or ibuprofen for pain or fever. Take the medications as directed. Follow up with your regular doctor. GO TO THE ER FOR ANY WORSENING SYMPTOMS Clinical Impressions Clinical Impression: Otitis media, Conjunctivitis, Sinusitis Instructions Patient Instructions: How to Instill Eye Drops, Sinusitis, Conjunctivitis, DI for Sinusitis, DI for Conjunctivitis Discharge ED Provider: Kb Burdick [facility] HPI General Stated complaint: congestion, left ear ache Time Seen by Provider: 12/01/22 08:30 History of Present Illness Provider Complaint: She states that for the past 1 week she has had sore throat, ear ache, chills, and malaise. Related Data Home Medications Medication Instructions Recorded Confirmed albuterol sulfate 90 mcg/actuation 2 puff inhalation Q4HP PRN 06/07/21 08/10/22 aerosol inhaler (Ventolin HFA) Shortness Of Breath hydroxyzine HCl 10 mg tablet 10 mg PO BIDP PRN Anxiety 08/15/21 08/10/22 ferrous sulfate 325 mg (65 mg 325 mg PO DAILY 08/31/21 08/10/22 iron) tablet topiramate 25 mg tablet (Topamax) 10 mg PO DAILY 08/31/21 08/10/22 Previous Rx's Medication Instructions Recorded acetaminophen 325 mg tablet 650 mg PO Q4HP PRN Mild Pain 08/17/21 norgestimate 0.25 mg-ethinyl 1 tab PO DAILY #28 tabs 09/28/21 estradiol 35 mcg tablet (Sprintec (28)) amoxicillin 500 mg tablet 500 mg PO TID 10 days #30 tabs 12/01/22 qgwwnwvjwswtmyy-qedxgegehyyuchx-HG 5 ml PO Q6H PRN Cough #240 mL 12/01/22 2 mg-30 mg-10 mg/5 mL oral syrup (Bromfed DM) gentamicin 0.3 % eye drops 1 drp ophthalmic (eye) Q4H 7 days 12/01/22 #5 mL methylprednisolone 4 mg tablets in 4 mg PO DIRECTED #21 tabs 12/01/22 a dose pack Allergies Allergy/AdvReac Type Severity Reaction Status Date / Time vancomycin [VANCOMYCIN] Allergy Intermediate RED MAN Verified 07/20/22 14:24 SYNDROME ibuprofen [From Motrin IB] Allergy Mild Ulcers Verified 07/20/22 14:24 PFSH PFS Disclaimer: The information contained in this section may have been updated after the patient was seen, as this information can be updated by other users. Medical History Dyspnea Nodule of left lung Surgical History H/O bilateral breast reduction surgery H/O laparoscopy S/P knee surgery Family History Other Family history non-contributory Social History Smoking Status: Never smoker second hand exposure: No alcohol intake: never substance use type: denies use current occupational status: unemployed Travel in the last 8 weeks: None household members: family housing: [employer]
[2022-12-01 08:59] VITALS: BP 120/68; PULSE 67; RESP 18; TEMP 37.2; O2SAT 98
== END 2022-12-01 09:08 | disposition home or self-care (01) ==
PROVIDERS: Emergency Provider Nurse Practitioner Family
DX: H66.93 Otitis media, unspecified, bilateral (principal); J01.90 Acute sinusitis, unspecified; H10.33 Unspecified acute conjunctivitis, bilateral; R91.1 Solitary pulmonary nodule
CPT/HCPCS: 99212; 99214; G0463

== ENCOUNTER 2023-05-15 09:40 | Outpatient (CLI) | payer MEDICARE, SELFPAY | END 2023-05-15 23:59 | PROVIDERS: PCP Nurse Practitioner; Visit Provider Physician Assistant | DX: R00.2 Palpitations (principal); R94.31 Abnormal electrocardiogram [ECG] [EKG]; R06.00 Dyspnea, unspecified; R07.9 Chest pain, unspecified | CPT/HCPCS: 93270 ==

== ENCOUNTER 2023-05-17 14:00 | Outpatient (CLI) | payer MEDICARE, SELFPAY ==
--- NOTE | 2023-05-17 14:12 | US_ITS ---
PROCEDURE INFORMATION: Exam: US Right Breast, Complete Exam date and time: 05/17/2023 2:39 PM Age: 27 years old Clinical indication: History of breast reduction. Currently, the patient reports pain in the lower inner quadrant, lower outer quadrant and retroareolar region TECHNIQUE: Imaging protocol: Complete ultrasound of all four quadrants of the right breast and the retroareolar regions, including ultrasound of the axilla when performed. COMPARISON: No relevant prior studies available. FINDINGS: ULTRASOUND: Breast ultrasound findings: Complete ultrasound assessment of the breast including all 4 quadrants and retroareolar breast as well as axilla Mildly prominent retroareolar ducts measure under 3 mm Otherwise, only normal glandular structures are present in the regions assessed No suspicious solid or cystic mass is present. No benign-appearing solid or cystic mass is present. No architectural distortion or shadowing is present. No axillary adenopathy is present. IMPRESSION: No sonographic evidence of malignancy. Annual mammographic screening is recommended unless otherwise clinically indicated. ASSESSMENT: BI-RADS category 2: Benign
== END 2023-05-17 23:59 ==
PROVIDERS: PCP Nurse Practitioner; Visit Provider Nurse Practitioner
DX: N64.4 Mastodynia (principal)
CPT/HCPCS: 76641

== ENCOUNTER 2023-06-14 13:29 | Outpatient (CLI) | payer MEDICARE, SELFPAY ==
--- NOTE | 2023-06-14 13:30 | CA_ITS ---
APPROVED REPORT EXAM: Comprehensive 2D, Doppler, and color-flow Echocardiogram Financial Management Analyst: Milagros Paula CRT Ht: 5 ft 3 in Wt: 127lbs BSA: 1.59 BP: 118/60 mmHg Indications: Chest Pain, Shortness of Breath, Palpitations, Fatigue 2D Dimensions LA Volume 35.10 mL LA Volume Index 21.50 mL/m2 (M/F) 16-34 M-Mode Dimensions RVDd 2.05 cm (0.9-2.6) LA Diam 2.86 cm (1.9-4.0) LVDd 4.53 cm (3.5-5.7) LVDs 3.01 cm (3.5-5.7) IVSd 0.93 cm (0.6-1.1) PWd 0.87 cm (0.6-1.1) EF (Teich) 62.40% FS 33.60% EDV (Teich) 93.90 mL TAPSE 3.05 (<1.7) ESV (Teich) 35.30 mL LV Diastology E Decel Time 300 (160-240 msec) E/A Ratio 1.98 MED A' 6.80 cm/s LAT A' 10.80 cm/s Aortic Valve AO Peak GR. 9.30 mmHg Mitral Valve MV A Velocity 53.0 (40-130 cm/s) E/A Ratio 1.98 Pulmonary Valve PV Peak Velocity 137.0 (50-150 cm/s) Tricuspid Valve TR P. Velocity 200.00 cm/s RAP Estimate 10.00 mmHg RVSP 25.90 mmHg Left Ventricle The left ventricle is normal size. The left ventricular systolic function is normal. The left ventricular ejection fraction is within the normal range. There is normal left ventricular wall thickness. There is normal LV segmental wall motion. The left ventricular diastolic function is normal. LVEF is 55%. Right Ventricle The right ventricle is normal size. The right ventricular systolic function is normal. Atria The left atrium size is normal. The right atrium size is normal. There is no Doppler evidence of interatrial shunt. Aortic Valve The aortic valve opens well. The aortic valve is trileaflet. There is no aortic valvular stenosis. No aortic regurgitation is present. Mitral Valve The mitral valve is normal in structure. No evidence of mitral valve stenosis. There is no mitral valve regurgitation noted. Tricuspid Valve The tricuspid valve leaflets are thin and pliable. Trace tricuspid regurgitation. RVSP is normal. Pulmonic Valve The pulmonary valve is normal in structure. Trace pulmonic regurgitation. Great Vessels The aortic root is normal in size. The ascending aorta is normal in size. IVC is normal in size and collapses >50% with inspiration. Pericardium There is no pericardial effusion. Other Information Study Quality: Fair Conclusion Normal biventricular systolic function. No significant valvular stenosis or regurgitation. Electronically signed by : Carmela Gardner MD 06/18/2023 13:21:30
== END 2023-06-14 23:59 | disposition home or self-care (01) ==
LOC: RT 13:30
PROVIDERS: PCP Nurse Practitioner; Visit Provider Nurse Practitioner Family
DX: R06.00 Dyspnea, unspecified (principal)
CPT/HCPCS: 93306

== ENCOUNTER 2023-06-21 17:02 | Emergency (ER) | payer MEDICARE, SELFPAY ==
--- NOTE | 2023-06-21 16:59 | ECG_ITS ---
APPROVED REPORT Exam: Resting ECG HR:73 bpm ECG Measurements Heart Rate 73 AXES FL 122 P 59 QRSd 84 QRS 48 QT 363 T 43 QTc 389 Conclusion SINUS RHYTHM Electronically signed by : VENKAT PETERS, 06/21/2023 19:59:03
[2023-06-21 17:02] VITALS: BP 116/74; PULSE 73; RESP 18; TEMP 37; O2SAT 100; BMI 22.4
[2023-06-21 17:32] LABS: Basophils # 0.1 K/mm3 (0-0.2); Basophils % 1.5 % (0.1-2.0); Eosinophils # 0.2 K/mm3 (0.0-0.4); Eosinophils % 4.2 % (0.1-12.0); Hematocrit 38.2 % (37.0-47.0); Hemoglobin 12.1 g/dL (12.2-16.2); Lymphocytes # 1.6 K/mm3 (0.7-4.5); Lymphocytes % 29.3 % (10-50); Mean Corpuscular HGB Conc 31.6 g/dL (31.8-35.4); Mean Corpuscular Hemoglobin 27.7 pg (27.0-31.2); Mean Corpuscular Volume 87.8 fl (81-99); Mean Platelet Volume 9.7 fl (7.4-10.4); Monocytes # 0.7 K/mm3 (0.1-1.0); Monocytes % 11.8 % (1.7-9.3); Neutrophils # 2.9 K/mm3 (1.8-7.8); Neutrophils % 53.4 % (37.0-80.0); Platelet Count 253 K/mm3 (142-424); Red Blood Count 4.35 M/mm3 (4.20-5.40); Red Cell Distribution Width 15.8 % (11.5-17.5); White Blood Count 5.5 K/mm3 (4.8-10.8)
[2023-06-21 17:33] LABS: Chloride 107 mmol/L (98-107); Potassium 4.1 mmoL/L (3.5-5.1); Sodium 139 mmol/L (136-145)
[2023-06-21 17:35] LABS: Blood Urea Nitrogen 7 mg/dl (7-17); Creatinine Clearance Estimated 94 mL/min (50-200); Estimated Glomerular Filt Rate 84 ml/min (>60); GFR (African American) 102 ML/MIN (>60)
[2023-06-21 17:36] LABS: Alanine Aminotransferase 19 U/L (12-78); Albumin Level 4.4 g/dl (3.5-5.0); Albumin/Globulin Ratio 1.5 (1.1-1.8); Alkaline Phosphatase 77 U/L (38-126); Anion Gap 10.1 mEq/L (5-15); Aspartate Amino Transferase 28 U/L (14-36); Bilirubin,Total 0.3 mg/dl (0.2-1.3); Calcium 9.4 mg/dl (8.4-10.2); Carbon Dioxide 26 mmol/L (22.0-30.0); Glucose 94 mg/dl (74-100); Magnesium 1.7 mg/dl (1.6-2.3); Total Protein,Serum 7.4 g/dl (6.3-8.2)
[2023-06-21] MEDS: KETOROLAC 30MG/ML VIAL 15 MG IV (17:39)
[2023-06-21] MEDS: ACETAMINOPHEN 1,000MG/100ML VIAL 1000 MG IV (17:39)
--- NOTE | 2023-06-21 17:42 | [facility].EDCP ---
Discharge Plan Disposition Patient Disposition: Home, Self-Care Prescriptions Prescriptions: No Action ferrous sulfate 325 mg (65 mg iron) tablet 325 mg PO DAILY topiramate [Topamax] 25 mg tablet 10 mg PO DAILY quetiapine 25 mg tablet 25 mg PO HS Patient Comments: TAKE ONE TABLET BY MOUTH EVERY DAY AT BEDTIME meloxicam 15 mg tablet 15 mg PO DAILY Patient Comments: TAKE ONE TABLET BY MOUTH EVERY DAY propranolol 10 mg tablet 10 mg PO DAILY Patient Comments: TAKE ONE TABLET BY MOUTH EVERY DAY albuterol sulfate [Ventolin HFA] 90 mcg/actuation HFA aerosol inhaler 2 puff IH Q4HP PRN (Reason: Shortness Of Breath) hydroxyzine HCl 10 MG tablet 10 mg PO BIDP PRN (Reason: Anxiety) acetaminophen 325 MG tablet 650 mg PO Q4HP PRN (Reason: Mild Pain) 0RF Referrals Follow up/Referrals: Arturo Hurd MD [Staff Physician] - See instructions Provider,MD Kev [Referring] - See instructions Activity Restrictions/Add. Instructions Additional Instructions/Restrictions: Call your family doctor to establish care for this visit to the emergency department and schedule follow-up within 48 hours to ensure improvement. If you have any worsening of your condition or any other concerning signs or symptoms, return to the emergency department or your primary care doctor for further evaluation. Clinical Impressions Clinical Impression: Chest pain, Back pain Discharge ED Provider: Andrea Richards General Chief Complaint: Chest Pain Stated Complaint: Chest Pain Time Seen by Provider: 06/21/23 17:14 Mode of Arrival: Ambulatory Source of Information: Patient Limitations: No Limitations Description of Symptoms (Recalled from ER Triage Doc. by RN): back pain,sternal pain urinary symptoms History of Present Illness HPI narrative: Please note that above description of symptoms, in this electronic medical record under categorization of recalled from ER triage doctor by RN are reflective of an initial nursing assessment, however, is not reflective of my full history and physical exam that was personally taken and clarified. Consequentially, this preceding description of symptoms, which may include the patient's categorized chief complaint in the EMR, do not reflect my personal clinical impression, and the ultimate description of history of present illness and patient stated complaints should be deferred to this section of the note. Unless stated otherwise or congruent with this section of the note, additional signs, symptoms, or incongruence should be interpreted as inaccurate with my clinical impression. Related Data Home Medications Medication Instructions Recorded Confirmed albuterol sulfate 90 mcg/actuation 2 puff inhalation Q4HP PRN 06/07/21 06/04/23 aerosol inhaler (Ventolin HFA) Shortness Of Breath hydroxyzine HCl 10 mg tablet 10 mg PO BIDP PRN Anxiety 08/15/21 06/04/23 ferrous sulfate 325 mg (65 mg 325 mg PO DAILY 08/31/21 06/04/23 iron) tablet topiramate 25 mg tablet (Topamax) 10 mg PO DAILY 08/31/21 06/04/23 meloxicam 15 mg tablet 15 mg PO DAILY 05/15/23 06/04/23 propranolol 10 mg tablet 10 mg PO DAILY 05/15/23 06/04/23 quetiapine 25 mg tablet 25 mg PO HS 05/15/23 06/04/23 Previous Rx's Medication Instructions Recorded acetaminophen 325 mg tablet 650 mg (2 x 325 mg) PO Q4HP PRN 08/17/21 Mild Pain Allergies Allergy/AdvReac Type Severity Reaction Status Date / Time vancomycin [VANCOMYCIN] Allergy Intermediate RED MAN Verified 06/04/23 13:56 SYNDROME ibuprofen [From Motrin IB] Allergy Mild Ulcers Verified 06/04/23 13:56 [facility] Disclaimer: The information contained in this section may have been updated after the patient was seen, as this information can be updated by other users. Medical History Abnormal electrocardiogram [ECG] [EKG] Abnormal EKG Nodule of left lung Dyspnea Surgical History H/O laparoscopy H/O bilateral breast reduction surgery S/P knee surgery Family History Other Family history non-contributory Social History Smoking Status: Never smoker second hand exposure: No alcohol intake: never substance use type: denies use current occupational status: unemployed Travel in the last 8 weeks: None household members: family housing: house current occupation: [employer] current occupational exposures/hazards: No caffeine: Yes ROS Obtained: Yes All systems reviewed & no additional complaints except as documented Physical Exam General General appearance: alert and anxious Neck Neck exam: Present trachea midline Chest Chest inspection: Present normal inspection and symmetric chest wall rise Respiratory Respiratory exam: Present normal lung sounds bilaterally; Absent respiratory distress, wheezes, stridor, accessory muscle use or prolonged expiratory phase Cardiovascular Cardiovascular exam: Present regular rate and normal rhythm Extremities Exam Extremities exam: Absent edema Neurological Exam Neurological exam: Present alert, oriented X3 and CN II-XII intact Skin Skin exam: Present warm and dry; Absent cyanosis, diaphoresis or pallor HEART Score HEART Score HEART Score assessment performed?: Yes HEART Score: 0 Critical Care Critical Care Time Critical Care Time: No Medical Decision Making Medical Records Medical records reviewed: Yes I reviewed the patient's medical records. Matthias Inquiry Pt receiving controlled substance: No Matthias was queried for this patient: No Vital Signs Vital Signs: 06/21/23 17:02 06/21/23 17:44 Temperature 98.6 F Temperature Source Oral Pulse Rate 56 L Pulse Rate [Left] 73 Respiratory Rate 18 Blood Pressure 107/73 L Blood Pressure [Left Arm] 116/74 Blood Pressure Mean [Left Arm] 88 02 Sat by Pulse Oximetry 100 100 Oxygen Delivery Method Room Air Room Air Lab Data Labs: Lab Results 06/21/23 17:00: WBC 5.5, RBC 4.35, Hgb 12.1 L, Hct 38.2, MCV 87.8, MCH 27.7, MCHC 31.6 L, RDW 15.8, Plt Count 253, MPV 9.7, Neut % (Auto) 53.4, Lymph % (Auto) 29.3, [place] % (Auto) 11.8 H, Eos % (Auto) 4.2, Baso % (Auto) 1.5, Neut # (Auto) 2.9, Lymph # (Auto) 1.6, [place] # (Auto) 0.7, Eos # (Auto) 0.2, Baso # (Auto) 0.1, Sodium 139, Potassium 4.1, Chloride 107, Carbon Dioxide 26, Anion Gap 10.1, BUN 7, Creatinine 0.80, Estimated Creat Clear 94, Estimated GFR 84, Est GFR ( Amer) 102, Glucose 94, Calcium 9.4, Magnesium 1.7, Total Bilirubin 0.3, AST 28, ALT 19, Alkaline Phosphatase 77, Troponin I < 0.01, Total Protein 7.4, Albumin 4.4, Globulin 3.0, Albumin/Globulin Ratio 1.5 05/02/24 18:09: Urine Color Yellow, Urine Appearance Sl cloudy, Urine pH 7.0, Ur Specific [place] 1.020, Urine Protein Negative, Urine Glucose (UA) Negative, Urine Ketones Negative, Urine Blood Trace-i, Urine Nitrate Negative, Urine Bilirubin Negative, Urine Urobilinogen 0.2, Ur Leukocyte Esterase Negative, Urine RBC 3-5, Urine WBC Occasional, Ur Squamous Epith Cells 5-10, Urine Bacteria 1+, Urine Mucus 1+, Urine HCG, Qual Negative 06/21/23 17:00 06/21/23 17:00 Response Orders (Tests/Meds): ED MEDICATIONS Discontinued Medications Generic Name Dose Route Start Last Admin Trade Name Freq PRN Reason Stop Dose Admin Acetaminophen 1,000 mg 06/21/23 17:24 06/21/23 17:39 Acetaminophen 1,000mg/100ml Vial IV 06/21/23 17:25 1,000 mg ONCE ONE Administration Ketorolac Tromethamine 15 mg 06/21/23 17:24 06/21/23 17:39 Ketorolac 30mg/Ml Vial IV 06/21/23 17:25 15 mg ONCE ONE Administration ORDERS Category Date Time Status CBC w/Auto Diff [Complete Blood Count Auto Diff] Stat Lab 06/21/23 17:00 Completed CMP [Comprehensive Metabolic Panel] Stat Lab 06/21/23 17:00 Completed Magnesium Stat Lab 06/21/23 17:00 Completed Trop I [Troponin I] Stat Lab 06/21/23 17:00 Completed Troponin I Q3H Lab 06/21/23 20:30 Ordered Troponin I Q3H Lab 06/21/23 23:30 Ordered UA [Urinalysis and Microscopic] Stat Lab 06/21/23 18:09 Completed Urine , HCG Qual. Stat Lab 06/21/23 18:09 Completed MDM Narrative Medical Decision Narrative: 28-year-old female history of anxiety, depression, reactive airway disease, palpitations on propranolol, chronic chest pain, scoliosis presenting with chest pain. This has been going on since yesterday, substernal, radiates to both breasts, does not radiate to back, feels it is associated with a feeling of neck pain anteriorly. No neurologic deficits. She says she does feel short of breath, not entirely related to the pain. Patient states that she has also been having thoracolumbar back pain in the midline and bilateral paraspinal areas which is acute on chronic, no heavy lifting, acute trauma. She denies any bowel or bladder dysfunction or any lower extremity weakness or any other concerns. Has not taken anything for the pain or discomfort. No urinary symptoms, last menstrual period was last week and was normal for her with no chance of . Patient was recently evaluated by cardiology on 06/03. history was obtained via conversation with patient. On arrival, patient hemodynamically stable, alert, oriented x4, appropriate, GCS 15, moving all extremities spontaneously, pupils equal and reactive to light. Full physical exam performed and significant for well-appearing woman in no acute distress. Lungs are clear to auscultation. Card exam within normal limits. Differential includes radiculopathy, neuropathy, chronic neck or back pain, ACS, [place], among others. Patient was given Toradol and Tylenol for symptomatic management and correction of underlying abnormalities. Workup independently interpreted and significant for nonactionable hematologic workup, negative troponin. See radiology read for full review of final results. Independent interpretation of EKG shows sinus rhythm 73 beats a minute no ST or T wave changes concerning for acute ischemia. IN, QRS, QT intervals within normal limits. Heart score 0. PERC negative. On reevaluation, patient resting little more comfortably, feels that it is nerve pains at this point. I agree, clinically. Conversation was had with patient regarding referral to pain medicine clinic, she is agreeable to this it was also recommended that she follow-up with her family doctor regarding splinting for her scoliosis. Because patient at baseline without signs or symptoms of clinical decompensation, deemed appropriate for discharge. Results were relayed to patient who voiced understanding and were agreeable to outpatient management and follow up. I discussed my clinical impression with patient and answered all questions. At this time, the evidence for any other entities in the differential is insufficient to warrant any further testing or ED observation. This was explained as well. Advisory was given that persistent or worsening symptoms require further evaluation. I confirmed the understanding of this discussion.
[2023-06-21 17:44] VITALS: BP 107/73; PULSE 56; O2SAT 100
[2023-06-21 17:49] LABS: Troponin I < 0.01 ng/ml (0.00-0.034)
[2023-06-21 18:13] LABS: Microscopic, Urine URINE MICROSCOPIC (MICROSCOPIC)
[2023-06-21 18:15] LABS: Appearance,Urine SL CLOUDY (Clear); Bilirubin,Urine Negative (Negative); Blood, Urine TRACE-I (Negative); Color,Urine YELLOW (Yellow); Glucose,Urine (UA) Negative (Negative); Ketones,Urine Negative (Negative); Leukocyte Esterase,Urine Negative (Negative); Nitrate,Urine Negative (Negative); Protein,Urine Negative (Negative); Urobilinogen,Urine 0.2 EU/dl (0.2)
[2023-06-21 18:17] LABS: Urine Pregnancy, HCG Qual. Negative (Negative)
[2023-06-21 18:44] LABS: Bacteria,Urine 1+ /lpf; Mucus,Urine 1+ /lpf; WBC,Urine Occasional #/hpf (0-3)
[2023-06-21 19:07] VITALS: BP 107/73; PULSE 60; RESP 15; TEMP 36.6
== END 2023-06-21 19:08 | disposition home or self-care (01) ==
PROVIDERS: Emergency Provider Emergency Medicine; PCP Nurse Practitioner
DX: R07.9 Chest pain, unspecified (principal); M54.9 Dorsalgia, unspecified; J45.909 Unspecified asthma, uncomplicated; M41.9 Scoliosis, unspecified
CPT/HCPCS: 80053; 81001; 81025; 83735; 84484; 85025; 93005; 96374; 96375; 99284; J0131

== ENCOUNTER 2023-09-13 14:03 | Emergency (ER) | payer MEDICARE, SELFPAY ==
[2023-09-13] VITALS (7 sets, daily range): BP systolic 103–129; BP diastolic 62–90; PULSE 49–65; RESP 15–18; TEMP 36.6; O2SAT 96–100; BMI 20.7
--- NOTE | 2023-09-13 14:10 | HMH.EDGENADL ---
Discharge Plan Disposition Patient Disposition: Home, Self-Care Condition: Good Prescriptions Prescriptions: No Action ferrous sulfate 325 mg (65 mg iron) tablet 325 mg PO DAILY topiramate [Topamax] 25 mg tablet 10 mg PO DAILY quetiapine 25 mg tablet 25 mg PO HS Patient Comments: TAKE ONE TABLET BY MOUTH EVERY DAY AT BEDTIME meloxicam 15 mg tablet 15 mg PO DAILY Patient Comments: TAKE ONE TABLET BY MOUTH EVERY DAY propranolol 10 mg tablet 10 mg PO DAILY Patient Comments: TAKE ONE TABLET BY MOUTH EVERY DAY albuterol sulfate [Ventolin HFA] 90 mcg/actuation HFA aerosol inhaler 2 puff IH Q4HP PRN (Reason: Shortness Of Breath) hydroxyzine HCl 10 MG tablet 10 mg PO BIDP PRN (Reason: Anxiety) acetaminophen 325 MG tablet 650 mg PO Q4HP PRN (Reason: Mild Pain) 0RF Referrals Follow up/Referrals: Estella Thomas APRN [Primary Care Provider] - See instructions Activity Restrictions/Add. Instructions Additional Instructions/Restrictions: Stop taking your propranolol and do not restart for any reason until evaluated by cardiology. Please call in the morning to establish a follow-up appointment. Follow-up with your PCP for recheck within 48 hours. Return to ER for any worsening signs or symptoms as needed. Clinical Impressions Clinical Impression: Symptomatic bradycardia Instructions Patient Instructions: DI for Bradycardia Print Language Print Language: Scottish Discharge ED Provider: Andrea Richards General Adult HPI <LAURA Masters - Last Filed: 09/13/23 15:44> General Chief complaint: Recheck/Abnormal Lab/Rx Stated complaint: low heart rate, abd pain, sleepy Time Seen by Provider: 09/13/23 14:10 History of Present Illness HPI narrative: Patient presents for evaluation of symptomatic bradycardia. Patient noticed that she was dizzy and lightheaded and checked her heart rate and blood pressure. Blood pressure was normal but she noted her heart rate to be in the 40s and 30s at home. She denies chest pain fever chills hemoptysis hematochezia melena nausea vomiting diarrhea. Patient recently had a tooth extraction and is on antibiotics for that since last week. Related Data Home Medications ?Medication ?Instructions ?Recorded ?Confirmed albuterol sulfate 90 mcg/actuation 2 puff inhalation Q4HP PRN 06/07/21 06/04/23 aerosol inhaler (Ventolin HFA) Shortness Of Breath hydroxyzine HCl 10 mg tablet 10 mg PO BIDP PRN Anxiety 08/15/21 06/04/23 ferrous sulfate 325 mg (65 mg 325 mg PO DAILY 08/31/21 06/04/23 iron) tablet topiramate 25 mg tablet (Topamax) 10 mg PO DAILY 08/31/21 06/04/23 meloxicam 15 mg tablet 15 mg PO DAILY 05/15/23 06/04/23 propranolol 10 mg tablet 10 mg PO DAILY 05/15/23 06/04/23 quetiapine 25 mg tablet 25 mg PO HS 05/15/23 06/04/23 Previous Rx's ?Medication ?Instructions ?Recorded acetaminophen 325 mg tablet 650 mg (2 x 325 mg) PO Q4HP PRN 08/17/21 Mild Pain Allergies Allergy/AdvReac Type Severity Reaction Status Date / Time vancomycin [VANCOMYCIN] Allergy Intermediate RED MAN Verified 06/04/23 13:56 SYNDROME ibuprofen [From Motrin IB] Allergy Mild Ulcers Verified 06/04/23 13:56 PFSH <LAURA Masters - Last Filed: 09/13/23 15:44> [facility] Disclaimer: The information contained in this section may have been updated after the patient was seen, as this information can be updated by other users. Medical History Abnormal electrocardiogram [ECG] [EKG] Abnormal EKG Nodule of left lung Dyspnea Surgical History H/O laparoscopy H/O bilateral breast reduction surgery S/P knee surgery Family History Other Family history non-contributory Social History Smoking Status: Current every day smoker tobacco type: cigarettes packs per day: 1 second hand exposure: No alcohol intake: never substance use type: denies use current occupational status: unemployed Travel in the last 8 weeks: None household members: family housing: house current occupation: [employer] current occupational exposures/hazards: No caffeine: Yes <LAURA Masters - Last Filed: 09/13/23 15:44> ROS Obtained: Yes Systems reviewed as appropriate & no additional complaints except as documented Physical Exam <LAURA Masters - Last Filed: 09/13/23 15:44> General General appearance: alert and in no apparent distress Head Head exam: atraumatic and normal inspection Eye Eye exam: Present normal appearance and EOMI ENT ENT exam: Present normal oropharynx; Absent normal exam (Patient has evidence of recent tooth extraction however there is no evidence abscess erythema or drainage.) Neck Neck exam: Present normal inspection and full ROM; Absent lymphadenopathy Chest Chest inspection: Present normal inspection and symmetric chest wall rise Respiratory Respiratory exam: Present normal lung sounds bilaterally Cardiovascular Cardiovascular exam: Present normal rhythm, bradycardia, normal heart sounds, +S1 and +S2 Extremities Exam Extremities exam: Present normal inspection and full ROM Neurological Exam Neurological exam: Present alert, oriented X3 and CN II-XII intact Psychiatric Psychiatric exam: Present normal affect and normal mood Medical Decision Making <LAURA Masters - Last Filed: 09/13/23 15:44> Medical Records Medical records reviewed: Yes I reviewed the patient's medical records. Matthias Inquiry Pt receiving controlled substance: No Vital Signs: 09/13/23 14:05 09/13/23 14:19 09/13/23 14:30 Temperature 97.9 F Temperature Source Oral Pulse Rate 60 Pulse Rate [Orthostatic Lying Left Radial] Pulse Rate [Orthostatic Sitting Left Radial] Pulse Rate [Orthostatic Standing Left Radial] Pulse Rate [Right] 65 64 Respiratory Rate 18 17 Blood Pressure 125/73 Blood Pressure [Orthostatic Lying Left Arm] Blood Pressure [Orthostatic Sitting Left Arm] Blood Pressure [Orthostatic Standing Left Arm] Blood Pressure [Right Arm] 129/90 129/90 Blood Pressure Mean 95 Blood Pressure Mean [Right Arm] 103 103 Blood Pressure Source Blood Pressure Source [Right Arm] Automatic Cuff 02 Sat by Pulse Oximetry 99 99 100 Oxygen Delivery Method Room Air Room Air Room Air 09/13/23 15:01 09/13/23 15:30 09/13/23 15:38 Temperature Temperature Source Pulse Rate 54 L 57 L Pulse Rate [Orthostatic Lying Left Radial] 49 L Pulse Rate [Orthostatic Sitting Left Radial] 54 L Pulse Rate [Orthostatic Standing Left Radial] 55 L Pulse Rate [Right] Respiratory Rate 15 16 Blood Pressure 114/68 127/79 Blood Pressure [Orthostatic Lying Left Arm] 103/67 L Blood Pressure [Orthostatic Sitting Left Arm] 119/71 Blood Pressure [Orthostatic Standing Left Arm] 120/74 Blood Pressure [Right Arm] Blood Pressure Mean 95 Blood Pressure Mean [Right Arm] Blood Pressure Source Blood Pressure Source [Right Arm] 02 Sat by Pulse Oximetry 96 100 Oxygen Delivery Method Room Air Room Air 09/13/23 16:02 Temperature 97.9 F Temperature Source Pulse Rate 65 Pulse Rate [Orthostatic Lying Left Radial] Pulse Rate [Orthostatic Sitting Left Radial] Pulse Rate [Orthostatic Standing Left Radial] Pulse Rate [Right] Respiratory Rate 18 Blood Pressure 129/62 Blood Pressure [Orthostatic Lying Left Arm] Blood Pressure [Orthostatic Sitting Left Arm] Blood Pressure [Orthostatic Standing Left Arm] Blood Pressure [Right Arm] Blood Pressure Mean Blood Pressure Mean [Right Arm] Blood Pressure Source Automatic Cuff Blood Pressure Source [Right Arm] 02 Sat by Pulse Oximetry Oxygen Delivery Method Room Air Lab Data Lab results reviewed: Yes I reviewed the patient's lab results. Lab Results 09/13/23 14:16: WBC 5.5, RBC 4.49, Hgb 12.5, Hct 39.9, MCV 88.8, MCH 27.9, MCHC 31.5 L, RDW 16.1, Plt Count 222, MPV 9.3, Neut % (Auto) 61.2, Lymph % (Auto) 25.2, [place] % (Auto) 8.1, Eos % (Auto) 4.5, Baso % (Auto) 1.0, Neut # (Auto) 3.4, Lymph # (Auto) 1.4, [place] # (Auto) 0.5, Eos # (Auto) 0.3, Baso # (Auto) 0.1, Sodium 139, Potassium 4.0, Chloride 106, Carbon Dioxide 26, Anion Gap 11.0, BUN 7, Creatinine 0.80, Estimated Creat Clear 86, Estimated GFR 84, Est GFR ( Amer) 102, Glucose 106 H, Calcium 9.5, Magnesium 2.0, Total Bilirubin 0.4, AST 23, ALT 14, Alkaline Phosphatase 74, Troponin I < 0.01, Total Protein 7.5, Albumin 4.4, Globulin 3.1, Albumin/Globulin Ratio 1.4, TSH 2.33, Free T4 Index 2.0 L, Thyroxine (T4) 6.4, T3 Uptake 31, Serum HCG, Qual Negative 09/13/23 14:22: Urine Color Yellow, Urine Appearance Clear, Urine pH 7.0, Ur Specific [place] 1.025, Urine Protein Trace, Urine Glucose (UA) Negative, Urine Ketones Negative, Urine Blood 3+, Urine Nitrate Negative, Urine Bilirubin Negative, Urine Urobilinogen 0.2, Ur Leukocyte Esterase Trace, Urine RBC 5-10, Urine WBC 3-5, Ur Squamous Epith Cells Occasional, Urine Bacteria Trace, Urine Mucus Trace, Urine Opiates Screen Positive H, Urine Methadone Screen Negative, Ur Barbituates Screen Negative, Ur Phencyclidine Scrn Negative, Ur Amphetamines Screen Negative, U Benzodiazepines Scrn Positive H, Urine Cocaine Screen Negative, U Marijuana (THC) Screen Negative, SARS-CoV-2 (PCR) Not detected, Influenza A Untype (PCR) Not detected, Influenza Type B (PCR) Not detected 09/13/23 14:16 09/13/23 14:16 Orders (Tests/Meds): ED MEDICATIONS Discontinued Medications Generic Name Dose Route Start Last Admin Trade Name Freq PRN Reason Stop Dose Admin Lactated Ringer's 1,000 mls @ 999 mls/hr 09/13/23 14:18 09/13/23 14:45 Lactated Ringer's 1000 Ml Bag IV 09/13/23 15:18 999 mls/hr .Q1H1M ONE Administration ORDERS Category Date Time Status Chest XR 2 view (NOT portable) [XR chest 2V] Stat Exams 09/13/23 14:18 Completed CBC w/Auto Diff [Complete Blood Count Auto Diff] Stat Lab 09/13/23 14:16 Completed CMP [Comprehensive Metabolic Panel] Stat Lab 09/13/23 14:16 Completed HCG Qualitative, Serum Stat Lab 09/13/23 14:16 Completed Magnesium Stat Lab 09/13/23 14:16 Completed Rapid PCR Covid and Flu A/B Stat Lab 09/13/23 14:22 Completed Thyroid Panel Stat Lab 09/13/23 14:16 Completed Trop I [Troponin I] Stat Lab 09/13/23 14:16 Completed UA [Urinalysis and Microscopic] Stat Lab 09/13/23 14:22 Completed UDS [Drug Screen,Urine] Stat Lab 09/13/23 14:22 Completed Medical Decision Narrative: In summary patient is a 28-year-old female who presents to the emergency department for evaluation of symptomatic bradycardia. Patient is normotensive but heart rate is around 50 at the time of my exam on the bedside monitor with a sinus rhythm upon arrival, afebrile. Physical exam is unremarkable and nonfocal including normal breath sounds normal heart sounds no swelling in the neck neck is nontender. No carotid bruits. Differential diagnosis includes symptomatic bradycardia versus sick sinus syndrome versus other bradycardia arrhythmia etc.. Initial workup will be conducted with hematologic labs chest x-ray twelve-lead EKG urinalysis urine drug screen. Initial interventions include crystalloid bolus. Initial workup reviewed by me shows that her hematologic labs are nonactionable my informal interpretation of her plain film chest x-ray shows no acute processes.. Upon repeat evaluation I queried the patient about her propranolol use which she says she takes periodically for palpitations. We have essentially ruled out any serious or life-threatening problem including concerning EKG findings and ACS. Given this patient is appropriate for discharge with referral back to cardiology with whom she is already established within 1 week. She is to see her PCP within 48 hours to recheck. Return to ER for any worsening signs or symptoms as needed. <Andrea Richards MD - Last Filed: 09/14/23 07:08> Vital Signs: 09/13/23 14:05 09/13/23 14:19 09/13/23 14:30 Temperature 97.9 F Temperature Source Oral Pulse Rate 60 Pulse Rate [Orthostatic Lying Left Radial] Pulse Rate [Orthostatic Sitting Left Radial] Pulse Rate [Orthostatic Standing Left Radial] Pulse Rate [Right] 65 64 Respiratory Rate 18 17 Blood Pressure 125/73 Blood Pressure [Orthostatic Lying Left Arm] Blood Pressure [Orthostatic Sitting Left Arm] Blood Pressure [Orthostatic Standing Left Arm] Blood Pressure [Right Arm] 129/90 129/90 Blood Pressure Mean 95 Blood Pressure Mean [Right Arm] 103 103 Blood Pressure Source Blood Pressure Source [Right Arm] Automatic Cuff 02 Sat by Pulse Oximetry 99 99 100 Oxygen Delivery Method Room Air Room Air Room Air 09/13/23 15:01 09/13/23 15:30 09/13/23 15:38 Temperature Temperature Source Pulse Rate 54 L 57 L Pulse Rate [Orthostatic Lying Left Radial] 49 L Pulse Rate [Orthostatic Sitting Left Radial] 54 L Pulse Rate [Orthostatic Standing Left Radial] 55 L Pulse Rate [Right] Respiratory Rate 15 16 Blood Pressure 114/68 127/79 Blood Pressure [Orthostatic Lying Left Arm] 103/67 L Blood Pressure [Orthostatic Sitting Left Arm] 119/71 Blood Pressure [Orthostatic Standing Left Arm] 120/74 Blood Pressure [Right Arm] Blood Pressure Mean 95 Blood Pressure Mean [Right Arm] Blood Pressure Source Blood Pressure Source [Right Arm] 02 Sat by Pulse Oximetry 96 100 Oxygen Delivery Method Room Air Room Air 09/13/23 16:02 Temperature 97.9 F Temperature Source Pulse Rate 65 Pulse Rate [Orthostatic Lying Left Radial] Pulse Rate [Orthostatic Sitting Left Radial] Pulse Rate [Orthostatic Standing Left Radial] Pulse Rate [Right] Respiratory Rate 18 Blood Pressure 129/62 Blood Pressure [Orthostatic Lying Left Arm] Blood Pressure [Orthostatic Sitting Left Arm] Blood Pressure [Orthostatic Standing Left Arm] Blood Pressure [Right Arm] Blood Pressure Mean Blood Pressure Mean [Right Arm] Blood Pressure Source Automatic Cuff Blood Pressure Source [Right Arm] 02 Sat by Pulse Oximetry Oxygen Delivery Method Room Air Lab Data Lab Results 09/13/23 14:16: WBC 5.5, RBC 4.49, Hgb 12.5, Hct 39.9, MCV 88.8, MCH 27.9, MCHC 31.5 L, RDW 16.1, Plt Count 222, MPV 9.3, Neut % (Auto) 61.2, Lymph % (Auto) 25.2, [place] % (Auto) 8.1, Eos % (Auto) 4.5, Baso % (Auto) 1.0, Neut # (Auto) 3.4, Lymph # (Auto) 1.4, [place] # (Auto) 0.5, Eos # (Auto) 0.3, Baso # (Auto) 0.1, Sodium 139, Potassium 4.0, Chloride 106, Carbon Dioxide 26, Anion Gap 11.0, BUN 7, Creatinine 0.80, Estimated Creat Clear 86, Estimated GFR 84, Est GFR ( Amer) 102, Glucose 106 H, Calcium 9.5, Magnesium 2.0, Total Bilirubin 0.4, AST 23, ALT 14, Alkaline Phosphatase 74, Troponin I < 0.01, Total Protein 7.5, Albumin 4.4, Globulin 3.1, Albumin/Globulin Ratio 1.4, TSH 2.33, Free T4 Index 2.0 L, Thyroxine (T4) 6.4, T3 Uptake 31, Serum HCG, Qual Negative 09/13/23 14:22: Urine Color Yellow, Urine Appearance Clear, Urine pH 7.0, Ur Specific [place] 1.025, Urine Protein Trace, Urine Glucose (UA) Negative, Urine Ketones Negative, Urine Blood 3+, Urine Nitrate Negative, Urine Bilirubin Negative, Urine Urobilinogen 0.2, Ur Leukocyte Esterase Trace, Urine RBC 5-10, Urine WBC 3-5, Ur Squamous Epith Cells Occasional, Urine Bacteria Trace, Urine Mucus Trace, Urine Opiates Screen Positive H, Urine Methadone Screen Negative, Ur Barbituates Screen Negative, Ur Phencyclidine Scrn Negative, Ur Amphetamines Screen Negative, U Benzodiazepines Scrn Positive H, Urine Cocaine Screen Negative, U Marijuana (THC) Screen Negative, SARS-CoV-2 (PCR) Not detected, Influenza A Untype (PCR) Not detected, Influenza Type B (PCR) Not detected Orders (Tests/Meds): ED MEDICATIONS Discontinued Medications Generic Name Dose Route Start Last Admin Trade Name Freq PRN Reason Stop Dose Admin Lactated Ringer's 1,000 mls @ 999 mls/hr 09/13/23 14:18 09/13/23 14:45 Lactated Ringer's 1000 Ml Bag IV 09/13/23 15:18 999 mls/hr .Q1H1M ONE Administration ORDERS Category Date Time Status Chest XR 2 view (NOT portable) [XR chest 2V] Stat Exams 09/13/23 14:18 Completed CBC w/Auto Diff [Complete Blood Count Auto Diff] Stat Lab 09/13/23 14:16 Completed CMP [Comprehensive Metabolic Panel] Stat Lab 09/13/23 14:16 Completed HCG Qualitative, Serum Stat Lab 09/13/23 14:16 Completed Magnesium Stat Lab 09/13/23 14:16 Completed Rapid PCR Covid and Flu A/B Stat Lab 09/13/23 14:22 Completed Thyroid Panel Stat Lab 09/13/23 14:16 Completed Trop I [Troponin I] Stat Lab 09/13/23 14:16 Completed UA [Urinalysis and Microscopic] Stat Lab 09/13/23 14:22 Completed UDS [Drug Screen,Urine] Stat Lab 09/13/23 14:22 Completed Medical Decision Narrative: In summary patient is a 28-year-old female who presents to the emergency department for evaluation of symptomatic bradycardia. Patient is normotensive but heart rate is around 50 at the time of my exam on the bedside monitor with a sinus rhythm upon arrival, afebrile. Physical exam is unremarkable and nonfocal including normal breath sounds normal heart sounds no swelling in the neck neck is nontender. No carotid bruits. Differential diagnosis includes symptomatic bradycardia versus sick sinus syndrome versus other bradycardia arrhythmia etc.. Initial workup will be conducted with hematologic labs chest x-ray twelve-lead EKG urinalysis urine drug screen. Initial interventions include crystalloid bolus. Initial workup reviewed by me shows that her hematologic labs are nonactionable my informal interpretation of her plain film chest x-ray shows no acute processes.. Upon repeat evaluation I queried the patient about her propranolol use which she says she takes periodically for palpitations. We have essentially ruled out any serious or life-threatening problem including concerning EKG findings and ACS. Given this patient is appropriate for discharge with referral back to cardiology with whom she is already established within 1 week. She is to see her PCP within 48 hours to recheck. Return to ER for any worsening signs or symptoms as needed. I was consulted by the SALINA, and we discussed the complexity of the problems being addressed. I approved the treatment and management plan for this patient?s care in the Emergency Department, thus performing a substantive portion of the medical decision making. Andrea Richards MD Critical Care <LAURA Masters - Last Filed: 09/13/23 15:44> Critical Care Time Critical Care Time: No
--- NOTE | 2023-09-13 14:11 | ECG_ITS ---
APPROVED REPORT Exam: Resting ECG HR:54 bpm ECG Measurements Heart Rate 54 AXES MS 122 P 48 QRSd 90 QRS 26 QT 412 T 17 QTc 398 Conclusion SINUS BRADYCARDIA Electronically signed by : VENKAT PETERS, 09/14/2023 08:49:39
--- NOTE | 2023-09-13 14:18 | XR_ITS ---
FINAL REPORT CLINICAL HISTORY: Bradycardia COMPARISON: 11/27/2022 FINDINGS: No acute pulmonary density is evident. There is no evidence of effusion or other pleural disease. The mediastinum has a normal appearance. The cardiac silhouette is unremarkable. IMPRESSION: Unremarkable chest exam. Reviewed, Interpreted and Dictated by Nils Henry MD Transcribed by Alejandra Shaw Authenticated and [facility]
[2023-09-13 14:26] LABS: Basophils # 0.1 K/mm3 (0-0.2); Eosinophils # 0.3 K/mm3 (0.0-0.4); Eosinophils % 4.5 % (0.1-12.0); Hematocrit 39.9 % (37.0-47.0); Hemoglobin 12.5 g/dL (12.2-16.2); Lymphocytes # 1.4 K/mm3 (0.7-4.5); Lymphocytes % 25.2 % (10-50); Mean Corpuscular HGB Conc 31.5 g/dL (31.8-35.4); Mean Corpuscular Hemoglobin 27.9 pg (27.0-31.2); Mean Corpuscular Volume 88.8 fl (81-99); Mean Platelet Volume 9.3 fl (7.4-10.4); Monocytes # 0.5 K/mm3 (0.1-1.0); Monocytes % 8.1 % (1.7-9.3); Neutrophils # 3.4 K/mm3 (1.8-7.8); Neutrophils % 61.2 % (37.0-80.0); Platelet Count 222 K/mm3 (142-424); Red Blood Count 4.49 M/mm3 (4.20-5.40); Red Cell Distribution Width 16.1 % (11.5-17.5); White Blood Count 5.5 K/mm3 (4.8-10.8)
[2023-09-13 14:26] LABS: Coronavirus 19, PCR Not Detected (NotDetected); Influenza A, PCR Not Detected (NotDetected); Influenza B, PCR Not Detected (NotDetected)
--- NOTE | 2023-09-13 14:30 | PC.NURSE ---
UA sent to lab
[2023-09-13 14:32] LABS: Microscopic, Urine URINE MICROSCOPIC (MICROSCOPIC)
[2023-09-13 14:40] LABS: Appearance,Urine CLEAR (Clear); Bilirubin,Urine Negative (Negative); Blood, Urine 3+ (Negative); Color,Urine YELLOW (Yellow); Glucose,Urine (UA) Negative (Negative); Ketones,Urine Negative (Negative); Leukocyte Esterase,Urine TRACE (Negative); Nitrate,Urine Negative (Negative); Protein,Urine TRACE (Negative); Specific Gravity, Urine 1.025 (1.005-1.030); Urobilinogen,Urine 0.2 EU/dl (0.2)
[2023-09-13 14:41] LABS: Alanine Aminotransferase 14 U/L (12-78); Albumin Level 4.4 g/dl (3.5-5.0); Albumin/Globulin Ratio 1.4 (1.1-1.8); Alkaline Phosphatase 74 U/L (38-126); Aspartate Amino Transferase 23 U/L (14-36); Bilirubin,Total 0.4 mg/dl (0.2-1.3); Blood Urea Nitrogen 7 mg/dl (7-17); Calcium 9.5 mg/dl (8.4-10.2); Carbon Dioxide 26 mmol/L (22.0-30.0); Chloride 106 mmol/L (98-107); Creatinine Clearance Estimated 86 mL/min (50-200); Estimated Glomerular Filt Rate 84 ml/min (>60); GFR (African American) 102 ML/MIN (>60); Globulin 3.1 g/dL (1.3-3.2); Glucose 106 mg/dl (74-100); Sodium 139 mmol/L (136-145); Total Protein,Serum 7.5 g/dl (6.3-8.2)
[2023-09-13] MEDS: LACTATED RINGERS 1000ML 1,000 ML 999 ML IV (14:45)
[2023-09-13 14:52] LABS: HCG Qualitative, Serum Negative (Negative)
[2023-09-13 14:53] LABS: Barbiturates Screen,Urine Negative ng/ml (<200); Benzodiazepines Screen,Urine Positive ng/ml (<200)
[2023-09-13 14:54] LABS: Amphetamine/Metha Screen,Urine Negative ng/ml (<1000)
[2023-09-13 14:55] LABS: Cannabinoid Screen,Urine Negative ng/ml (<50); Methadone Screen,Urine Negative ng/ml (<300)
[2023-09-13 14:56] LABS: Cocaine Screen,Urine Negative ng/ml (<300)
[2023-09-13 14:57] LABS: Opiate Screen,Urine Positive ng/ml (<300); Phencyclidine Screen,Urine Negative ng/ml (<25)
[2023-09-13 15:03] LABS: Troponin I < 0.01 ng/ml (0.00-0.034)
--- NOTE | 2023-09-13 15:07 | PC.NURSE ---
PT ARRIVED BACK TO ROOM FROM XRAY
[2023-09-13 15:32] LABS: Squamous Epithelial Cell,Urine Occasional #/hpf (0-5)
[2023-09-13 15:33] LABS: Bacteria,Urine Trace /lpf; Mucus,Urine Trace /lpf
[2023-09-13 15:58] LABS: T4 (Thyroxine) 6.4 ug/dl (5.53-11.0); Triiodothryronine (T3) Uptake 31 % (23.5-40.5)
[2023-09-13 16:12] LABS: Thyroid Stimulating Hormone 2.33 uIU/mL (0.465-4.68)
== END 2023-09-13 16:03 | disposition home or self-care (01) ==
PROVIDERS: Physician Assistant; Emergency Provider Emergency Medicine; PCP Nurse Practitioner
DX: R00.1 Bradycardia, unspecified (principal); F17.210 Nicotine dependence, cigarettes, uncomplicated
CPT/HCPCS: 71046; 80053; 80307; 81001; 83735; 84436; 84443; 84479; 84484; 84703; 85025; 87636; 93005; 96360; 99284; J7120

== ENCOUNTER 2023-09-21 16:48 | Outpatient (CLI) | payer MEDICARE, SELFPAY | END 2023-09-21 23:59 | disposition home or self-care (01) | LOC: RT 16:48 | PROVIDERS: PCP Nurse Practitioner | DX: R00.2 Palpitations (principal) | CPT/HCPCS: 93270 ==

== ENCOUNTER 2023-11-07 19:17 | Emergency (ER) | payer MEDICARE, SELFPAY ==
--- NOTE | 2023-11-07 19:16 | ED_ITS ---
<Statement entered by Radha Cartwright DO - 11/08/23 15:06> I was consulted by the SALINA, and we discussed the complexity of the problems being addressed. I approved the treatment and management plan for this patient's care in the emergency department, thus performing a substantive portion of the medical decision making. Patient neurovascularly intact with intact straight leg raise. No appreciable significant ligamentous instability. She has superficial abrasion but no concerns for violation of the joint based on exam. X-rays negative and she is deemed to be appropriate for discharge with follow-up with orthopedics. Radha Cartwright DO Discharge Plan Disposition Patient Disposition: Home, Self-Care Condition: Good Prescriptions Prescriptions: No Action ferrous sulfate 325 mg (65 mg iron) tablet 325 mg PO DAILY topiramate [Topamax] 25 mg tablet 10 mg PO DAILY quetiapine 25 mg tablet 25 mg PO HS Patient Comments: TAKE ONE TABLET BY MOUTH EVERY DAY AT BEDTIME meloxicam 15 mg tablet 15 mg PO DAILY Patient Comments: TAKE ONE TABLET BY MOUTH EVERY DAY albuterol sulfate [Ventolin HFA] 90 mcg/actuation HFA aerosol inhaler 2 puff IH Q4HP PRN (Reason: Shortness Of Breath) hydroxyzine HCl 10 MG tablet 10 mg PO BIDP PRN (Reason: Anxiety) acetaminophen 325 MG tablet 650 mg PO Q4HP PRN (Reason: Mild Pain) 0RF Referrals Follow up/Referrals: Dc Watson DO [Staff Physician] - See instructions Provider,Referral, [Referring] - See instructions Activity Restrictions/Add. Instructions Additional Instructions/Restrictions: Utilize crutches for weightbearing as tolerated. Please rest ice compression elevation as tolerated. He can take Tylenol alternating with Motrin every 4 hours as needed for pain. I have referred you to orthopedics. Please call them to establish follow-up appointment. Return to ER for any worsening signs or symptoms as needed. Clinical Impressions Clinical Impression: Contusion of left leg Qualifiers: Encounter type: initial encounter Qualified Code(s): S80.12XA - Contusion of left lower leg, initial encounter Print Language Print Language: Faroese Discharge ED Provider: Radha Cartwright General Adult HPI General Chief complaint: Extremity Injury, Lower Stated complaint: injury Time Seen by Provider: 11/07/23 19:18 History of Present Illness HPI narrative: Patient presents for evaluation to her left lower extremity. Patient states that a cattle gate fell striking her in her left lower leg. Patient states that she was unable to bear weight due to the pain. She denies injury to any other part of the body is neurovascular intact distally. Related Data Home Medications ?Medication ?Instructions ?Recorded ?Confirmed albuterol sulfate 90 mcg/actuation 2 puff inhalation Q4HP PRN 06/07/21 09/19/23 aerosol inhaler (Ventolin HFA) Shortness Of Breath hydroxyzine HCl 10 mg tablet 10 mg PO BIDP PRN Anxiety 08/15/21 09/19/23 ferrous sulfate 325 mg (65 mg 325 mg PO DAILY 08/31/21 09/19/23 iron) tablet topiramate 25 mg tablet (Topamax) 10 mg PO DAILY 08/31/21 09/19/23 meloxicam 15 mg tablet 15 mg PO DAILY 05/15/23 09/19/23 quetiapine 25 mg tablet 25 mg PO HS 05/15/23 09/19/23 Previous Rx's ?Medication ?Instructions ?Recorded acetaminophen 325 mg tablet 650 mg (2 x 325 mg) PO Q4HP PRN 08/17/21 Mild Pain Allergies Allergy/AdvReac Type Severity Reaction Status Date / Time vancomycin [VANCOMYCIN] Allergy Intermediate RED MAN Verified 09/19/23 13:07 [facility] ibuprofen [From Motrin IB] Allergy Mild Ulcers Verified 09/19/23 13:07 [facility] Disclaimer: The information contained in this section may have been updated after the patient was seen, as this information can be updated by other users. Medical History Abnormal electrocardiogram [ECG] [EKG] Abnormal EKG Nodule of left lung Dyspnea Surgical History H/O laparoscopy H/O bilateral breast reduction surgery S/P knee surgery Family History Other Family history non-contributory Social History Smoking Status: Current every day smoker tobacco type: cigarettes packs per day: 1 second hand exposure: No alcohol intake: never substance use type: denies use current occupational status: unemployed Travel in the last 8 weeks: None household members: family housing: house current occupation: [employer] current occupational exposures/hazards: No caffeine: Yes ROS Obtained: Yes Systems reviewed as appropriate & no additional complaints except as documented Physical Exam General General appearance: alert and in no apparent distress Respiratory Respiratory exam: Present normal lung sounds bilaterally Cardiovascular Cardiovascular exam: Present regular rate Neurological Exam Neurological exam: Present alert and oriented X3 Medical Decision Making Medical Records Screening: Per USPSTF and CDC recommendations, given the prevalence of disease in our region, it is our hospital?s policy to screen for HIV and viral Hepatitis for all patients aged 18 and over and those with ongoing risk factors. Matthias Inquiry Pt receiving controlled substance: No Vital Signs: 11/07/23 19:17 Temperature 98.6 F Temperature Source Oral Pulse Rate [Right Radial] 97 H Respiratory Rate 18 Blood Pressure [Right Arm] 119/84 Blood Pressure Mean [Right Arm] 95 Blood Pressure Source [Right Arm] Automatic Cuff Blood Pressure Position [Right Arm] Sitting 02 Sat by Pulse Oximetry 99 Oxygen Delivery Method Room Air Orders (Tests/Meds): ED MEDICATIONS Discontinued Medications Generic Name Dose Route Start Last Admin Trade Name Freq PRN Reason Stop Dose Admin Acetaminophen 1,000 mg 11/07/23 19:17 11/07/23 19:47 Acetaminophen 500mg Tab PO 11/07/23 19:18 Not Given ONCE ONE Tetanus/Reduced Diphtheria/Acell Pertussis 0.5 ml 11/07/23 19:20 11/07/23 19:43 Tet/Diphth/Pert-Adult 0.5ml Syringe IM 11/07/23 19:21 Not Given .ONCE ONE ORDERS Category Date Time Status Femur XR left 2 views [XR femur LT 2V] Stat Exams 11/07/23 19:17 Completed Knee XR left 4 views [XR knee LT 4V] Stat Exams 11/07/23 19:17 Completed Tibia/fibula XR left 2 views [XR tibia fibula LT 2V] Exams 11/07/23 19:17 Completed Stat Medical Decision Narrative: In summary patient is a 28-year-old female who presents to the emergency department for evaluation of left lower extremity injury. Patient is hemodynamically stable upon arrival, afebrile. Physical exam is remarkable for an abrasion on the left lower extremity just proximal to the patella but not directly on the patella. There is slight bruising associated. No palpable bony deformity noted. Patient is unable to participate in range of motion testing due to her pain. She is neurovascular intact distally with full range of motion at the ankle and strong DP PT pulses. Differential diagnosis includes contusion versus possible fracture. Initial workup will be conducted with plain film x- rays. Initial interventions include acetaminophen. Initial workup reviewed by me and my informed interpretation shows no acute fractures on the plain films. Upon repeat evaluation patient is able to bear weight but is extremely tender. She did has a significant hematoma at the point of contusion but has intact straight leg raise. Given this patient is appropriate for discharge with Bryon wrap and crutches and referred to orthopedics for follow-up. Critical Care Critical Care Time Critical Care Time: No
[2023-11-07 19:17] VITALS: BP 119/84; PULSE 97; RESP 18; TEMP 37; O2SAT 99; BMI 22.8
--- NOTE | 2023-11-07 19:17 | XR_ITS ---
PROCEDURE INFORMATION: Exam: XR Left Femur Exam date and time: 11/07/2023 7:30 PM Age: 28 years old Clinical indication: Injury or trauma; Other: Cattle gate incident; Other: Pain TECHNIQUE: Imaging protocol: Radiologic exam of the left femur. Views: 2 views. Total images: 2 COMPARISON: CR XR FEMUR LT 2V 11/07/2023 7:30 PM FINDINGS: Bones/joints: No acute fracture or joint dislocation. No concerning bone lesions or calcifications. Unremarkable joint spaces. Soft tissues: Unremarkable. IMPRESSION: Negative left femur.
--- NOTE | 2023-11-07 19:17 | XR_ITS ---
PROCEDURE INFORMATION: Exam: XR Left Knee Exam date and time: 11/07/2023 7:30 PM Age: 28 years old Clinical indication: Injury or trauma; Other: Cattle gate incident; Other: Pain TECHNIQUE: Imaging protocol: Radiologic exam of the left knee. Views: 4 or more views. Total images: 4 COMPARISON: CR XR FEMUR LT 2V 11/07/2023 7:30 PM FINDINGS: Bones/joints: No acute fracture, joint dislocation, or joint effusion. No concerning bone lesions or calcifications. Unremarkable joint spaces. Soft tissues: Suspect mild soft tissue swelling medial and superior to the patella and joint space. No foreign body. IMPRESSION: 1. No acute osseous abnormality or joint effusion. 2. Probable soft tissue injury.
--- NOTE | 2023-11-07 19:17 | XR_ITS ---
PROCEDURE INFORMATION: Exam: XR Left Tibia and Fibula Exam date and time: 11/07/2023 7:30 PM Age: 28 years old Clinical indication: Injury or trauma; Other: Cattle gate incident; Other: Pain TECHNIQUE: Imaging protocol: Radiologic exam of the left tibia and fibula. Views: 2 views. Total images: 2 COMPARISON: CR XR TIBIA FIBULA LT 2V 11/07/2023 7:30 PM FINDINGS: Bones/joints: No acute fracture or joint dislocation. No concerning bone lesions or calcifications. Unremarkable joint spaces. Soft tissues: Unremarkable soft tissues. IMPRESSION: Negative left tibia and fibula.
--- NOTE | 2023-11-07 19:42 | PC.NURSE ---
pt reports she had tetanus shot in 2020. Stephanie Rdoriguez notified. Tetanus held.
[2023-11-07] MEDS: ACETAMINOPHEN 500MG TAB 1000 MG PO (20:29)
[2023-11-07 20:40] VITALS: BP 111/75; PULSE 70; RESP 18; TEMP 36.7; O2SAT 99
== END 2023-11-07 21:03 | disposition home or self-care (01) ==
PROVIDERS: Emergency Provider Emergency Medicine; PCP Nurse Practitioner
DX: S80.12XA Contusion of left lower leg, initial encounter (principal); M79.662 Pain in left lower leg; W20.8XXA Other cause of strike by thrown, projected or falling object, initial encounter
CPT/HCPCS: 73552; 73564; 73590; 90715; 99283

== ENCOUNTER 2023-11-19 06:11 | Outpatient (CLI) | payer MEDICARE, SELFPAY ==
--- NOTE | 2023-11-19 06:28 | CT_ITS ---
FINAL REPORT TECHNIQUE: Thin section axial CT images with coronal and sagittal reformats were performed. This study was performed with techniques to keep radiation doses as low as reasonably achievable (ALARA). Individualized dose reduction techniques using automated exposure control or adjustment of mA and/or kV according to the patient''s size were employed. CLINICAL HISTORY: KNEE CONTUSION, hit by cattle gate FINDINGS: There is significant subcutaneous soft tissue edema superior to the patella with an associated subcutaneous fluid collection measuring 6.5 x 1.3 cm. No underlying fracture is identified. The joint space is preserved. The bones are well mineralized. IMPRESSION: Subcutaneous fluid collection superior to the patella, may be related to posttraumatic hematoma or seroma. Reviewed, Interpreted and Dictated by Giancarlo Fernandez MD Transcribed by Ro Jordan Authenticated and [facility]
== END 2023-11-19 23:59 | disposition home or self-care (01) ==
PROVIDERS: PCP Nurse Practitioner; Visit Provider Nurse Practitioner
DX: S80.02XA Contusion of left knee, initial encounter (principal)
CPT/HCPCS: 73700

== ENCOUNTER 2024-03-17 20:50 | Emergency (ER) | payer MEDICARE, SELFPAY ==
--- NOTE | 2024-03-17 20:57 | [facility].EDGENADL ---
Discharge Plan Disposition Patient Disposition: Home, Self-Care Condition: Good Prescriptions Prescriptions: New prednisone 50 mg tablet 50 mg PO DAILY 5 Days Qty: 5 0RF No Action ferrous sulfate 325 mg (65 mg iron) tablet 325 mg PO DAILY topiramate [Topamax] 25 mg tablet 10 mg PO DAILY quetiapine 25 mg tablet 25 mg PO HS Patient Comments: TAKE ONE TABLET BY MOUTH EVERY DAY AT BEDTIME meloxicam 15 mg tablet 15 mg PO DAILY Patient Comments: TAKE ONE TABLET BY MOUTH EVERY DAY albuterol sulfate [Ventolin HFA] 90 mcg/actuation HFA aerosol inhaler 2 puff IH Q4HP PRN (Reason: Shortness Of Breath) hydroxyzine HCl 10 MG tablet 10 mg PO BIDP PRN (Reason: Anxiety) Referrals Follow up/Referrals: Lyla Thomas APRN [Primary Care Provider] - See instructions Gale Guerin APRN [Nurse Practitioner] - See instructions (neck pain, voice changes for 5 weeks, reassuring ER workup, please see HONG) Activity Restrictions/Add. Instructions Additional Instructions/Restrictions: You were evaluated in the ER and are appropriate for discharge at this time. You have been referred to ENT for follow-up, call them and make an appointment as soon as possible. Take the prescribed steroids as directed. Follow-up with your primary care doctor for reevaluation as well. Return to the ER with new, worsening, or otherwise concerning symptoms. Clinical Impressions Clinical Impression: Laryngitis, Neck pain Print Language Print Language: Slovak Discharge ED Provider: Glen Mckenzie General Adult HPI <LAURA Masters - Last Filed: 03/17/24 20:58> General Chief complaint: PAIN Stated complaint: Sore throat,lost voice Time Seen by Provider: 03/17/24 20:52 Related Data Home Medications ?Medication ?Instructions ?Recorded ?Confirmed albuterol sulfate 90 mcg/actuation 2 puff inhalation Q4HP PRN 06/07/21 03/05/24 aerosol inhaler (Ventolin HFA) Shortness Of Breath hydroxyzine HCl 10 mg tablet 10 mg PO BIDP PRN Anxiety 08/15/21 03/05/24 ferrous sulfate 325 mg (65 mg 325 mg PO DAILY 08/31/21 03/05/24 iron) tablet topiramate 25 mg tablet (Topamax) 10 mg PO DAILY 08/31/21 03/05/24 meloxicam 15 mg tablet 15 mg PO DAILY 05/15/23 03/05/24 quetiapine 25 mg tablet 25 mg PO HS 05/15/23 03/05/24 Previous Rx's ?Medication ?Instructions ?Recorded prednisone 50 mg tablet 50 mg PO DAILY 5 days #5 tabs 03/17/24 Allergies Allergy/AdvReac Type Severity Reaction Status Date / Time vancomycin (VANCOMYCIN) Allergy Intermediate RED MAN Verified 03/05/24 13:25 SYNDROME ibuprofen (From Motrin IB) Allergy Mild Ulcers Verified 03/05/24 13:25 <Glen Mckenzie MD - Last Filed: 03/17/24 23:16> History of Present Illness HPI narrative: Patient is a 28-year-old female with no pertinent past medical history presents emergency department for evaluation of subacute sore throat. History is obtained by patient at bedside. For the last 4 to 5 weeks she has lost her voice and has had progressively worse throat pain. She is still able to swallow and manage her secretions. She has never had anything like this happen before. Due to the progressive nature of this she presents here for continued evaluation. She is able to whisper but is unable to phonate significantly over the entire course. No chest pain reported. [facility] <LAURA Masters - Last Filed: 03/17/24 20:58> [facility] Disclaimer: The information contained in this section may have been updated after the patient was seen, as this information can be updated by other users. Medical History Abnormal electrocardiogram [ECG] [EKG] Abnormal EKG Nodule of left lung Dyspnea Surgical History H/O laparoscopy H/O bilateral breast reduction surgery S/P knee surgery Family History Other Family history non-contributory Social History Smoking Status: Current every day smoker tobacco type: cigarettes packs per day: 1 second hand exposure: No alcohol intake: never substance use type: denies use current occupational status: unemployed Travel in the last 8 weeks: None household members: family housing: house current occupation: [employer] current occupational exposures/hazards: No caffeine: Yes Have you lived/traveled outside [place] in past 30 days?: No Contact w/someone who lives/traveled outside US past 30 days?: No Exposure to someone with infectious disease in past 14 days?: No Do you have a fever (greater than 100.4 F or 38 C)?: No Have you tested positive for COVID-19: No Exposed to someone with COVID-19 in past 14 days?: No Do you have a sore throat?: Yes Do you have a cough?: No Do you have any weakness?: No Do you have any diarrhea?: No Are you experiencing any unusual bleeding?: No Do you have any muscle aches/pain?: No Do you have any abdominal pain?: No Are you experiencing loss of taste or smell?: No Other Medical History Have you received the Flu Vaccine for this season: No Have you received the Pneumonia Vaccine: No <LAURA Masters - Last Filed: 03/17/24 20:58> ROS Obtained: Yes Systems reviewed as appropriate & no additional complaints except as documented Physical Exam <LAURA Masters - Last Filed: 03/17/24 20:58> General General appearance: alert and in no apparent distress Head Head exam: atraumatic and normal inspection Eye Eye exam: Present normal appearance, PERRL and EOMI ENT ENT exam: Present normal exam, normal oropharynx and mucous membranes moist Neck Neck exam: Present normal inspection, full ROM and trachea midline; Absent lymphadenopathy Chest Chest inspection: Present normal inspection and symmetric chest wall rise Respiratory Respiratory exam: Present normal lung sounds bilaterally; Absent accessory muscle use Cardiovascular Cardiovascular exam: Present regular rate, normal rhythm, normal heart sounds, +S1 and +S2 Abdominal Exam Abdominal exam: Present soft and normal bowel sounds; Absent tenderness, guarding or rebound Extremities Exam Extremities exam: Present normal inspection and full ROM Neurological Exam Neurological exam: Present alert, oriented X3 and CN II-XII intact Psychiatric Psychiatric exam: Present normal affect and normal mood Skin Skin exam: Present warm, dry and normal color Lymphatic Lymphatic Findings: no adenopathy <Glen Mckenzie MD - Last Filed: 03/17/24 23:16> General General appearance: alert and in no apparent distress Head Head exam: atraumatic and normocephalic Eye Eye exam: Present PERRL ENT ENT exam: Present mucous membranes moist; Absent normal oropharynx (Erythematous posterior oropharynx with mild bilateral tonsillar swelling without significant exudate) Neck Neck exam: Present other (Tenderness over the anterior midline neck without significant fluctuance, it is difficult to tell if it is indurated due to patient wincing from pain or if it is true induration. No overlying skin changes) Chest Chest inspection: Present normal inspection and symmetric chest wall rise Respiratory Respiratory exam: Present normal lung sounds bilaterally; Absent respiratory distress Cardiovascular Cardiovascular exam: Present regular rate and normal rhythm Abdominal Exam Abdominal exam: Present soft Extremities Exam Extremities exam: Present normal inspection Neurological Exam Neurological exam: Present alert Psychiatric Psychiatric exam: Present normal affect Skin Skin exam: Present warm and dry Medical Decision Making <LAURA Masters - Last Filed: 03/17/24 20:58> Medical Records Screening: Per USPSTF and CDC recommendations, given the prevalence of disease in our region, it is our hospital?s policy to screen for HIV and viral Hepatitis for all patients aged 18 and over and those with ongoing risk factors. Vital Signs: 03/17/24 21:06 Temperature 98.8 F Temperature Source Oral Pulse Rate [Right Radial] 75 Respiratory Rate 16 Blood Pressure [Right Arm] 133/77 Blood Pressure Mean [Right Arm] 95 Blood Pressure Source [Right Arm] Automatic Cuff Blood Pressure Position [Right Arm] Sitting 02 Sat by Pulse Oximetry 99 Oxygen Delivery Method Room Air Lab Data Lab Results 03/17/24 21:04: Group A Strep Rapid Negative 03/17/24 21:14: WBC 8.1, RBC 4.25, Hgb 11.8 L, Hct 37.1, MCV 87.3, MCH 27.8, MCHC 31.8, RDW 14.5, Plt Count 267, MPV 12.6 H, Neut % (Auto) 58.4, Lymph % (Auto) 26.6, [place] % (Auto) 10.1 H, Eos % (Auto) 4.1, Baso % (Auto) 0.7, Neut # (Auto) 4.7, Lymph # (Auto) 2.2, [place] # (Auto) 0.8, Eos # (Auto) 0.3, Baso # (Auto) 0.1, Sodium 139, Potassium 4.0, Chloride 105, Carbon Dioxide 23, Anion Gap 15.0, BUN 9, Creatinine 0.90, Estimated Creat Clear 89, Estimated GFR 74, Est GFR ( Amer) 89, Glucose 78, Calcium 9.5, Total Bilirubin 0.1 L, AST 33, ALT 25, Alkaline Phosphatase 61, Total Protein 7.8, Albumin 4.9, Globulin 2.9, Albumin/Globulin Ratio 1.7, TSH 3.54, Free T4 0.79, Serum HCG, Qual Negative 03/17/24 21:14 03/17/24 21:14 Orders (Tests/Meds): ED MEDICATIONS Discontinued Medications Generic Name Dose Route Start Last Admin Trade Name Freq PRN Reason Stop Dose Admin Acetaminophen 1,000 mg 03/17/24 21:02 03/17/24 21:21 Acetaminophen 1,000mg/100ml Vial IV 03/17/24 21:03 1,000 mg ONCE ONE Administration Bacitracin 1 each 03/17/24 21:52 03/17/24 21:54 Bacitracin Oint 0.9gm Udp TP 03/17/24 21:53 Not Given ONCE ONE Iopamidol 75 ml 03/17/24 23:04 03/17/24 23:09 Iopamidol-370 (76%);100ml Bottle IV 03/17/24 23:05 75 ml ONCE ONE Administration Ketorolac Tromethamine 15 mg 03/17/24 23:16 03/17/24 23:20 Ketorolac 30mg/Ml Vial IV 03/17/24 23:17 15 mg ONCE ONE Administration Lidocaine HCl 5 ml 03/17/24 21:02 03/17/24 21:21 Lidocaine 2% 5ml Pf Vial IH 03/17/24 21:03 5 ml ONCE ONE Administration Sodium Chloride 10 ml 03/17/24 23:04 03/17/24 23:08 Sodium Chloride 0.9% 10ml Syr (Rad Only) IV 03/17/24 23:05 10 ml ONCE ONE Administration ORDERS Category Date Time Status CT soft tissue neck w con Stat Cat Scan 03/17/24 21:02 Completed CBC w/Auto Diff [Complete Blood Count Auto Diff] Stat Lab 03/17/24 21:14 Completed CMP [Comprehensive Metabolic Panel] Stat Lab 03/17/24 21:14 Results CRP [C-Reactive Protein] Stat Lab 03/17/24 21:14 Results Free T4 (Free Thyroxine) Stat Lab 03/17/24 21:14 Completed HCG Qualitative, Serum Stat Lab 03/17/24 21:14 Completed Monoscreen (Rapid) Stat Lab 03/17/24 21:14 Received Rapid Strep Scrn Group A [Strep Scrn Group A (Rapid)] Lab 03/17/24 21:04 Completed Stat TSH [Thyroid Stimulating Hormone] Stat Lab 03/17/24 21:14 Results Strep Screen Confirmation Stat Micro 03/17/24 21:04 Received Medical Decision Narrative: In summary patient is a [age, sex] who presents to the emergency department for evaluation of [complaint]. Patient is [hemodynamically stable/unstable] upon arrival, [febrile/afebrile]. [Unremarkable physical exam, nonfocal exam versus focal remarkable exam]. Differential diagnosis includes [DDx]. Initial workup will be conducted with [hematologic labs, imaging, respiratory swab, describe workup]. Initial interventions include [crystalloid bolus, medications, p.o. challenge, etc.] initial workup reviewed by me [hematologic labs are remarkable for... Imaging remarkable for... Urinalysis remarkable for]. Upon repeat evaluation [patient had acceptable resolution of symptoms, had persistent pain for which additional interventions were conducted (describe interventions), tolerated p.o., was ambulatory, etc.]. Given this [patient is appropriate for discharge at this time and will be discharged with a prescription for... The case was discussed with hospital medicine regarding management and they will admit the patient their service for continued evaluation at this time... Etc.] Places where you can increase complexity: I informally interpreted the patient's chest x-ray or CT read and is remarkable for... Documenting what the flask handler shows with rate and rhythm Consideration of test but deferring. Ex: I considered chest x-ray on this patient however given that they have no oxygen requirement and are clear to auscultation all lung gotti will be deferred. Social determinants of health: Given that patient is undomiciled increases complexity. Given that patient has polysubstance abuse compounds all aspects of care <Glen Mckenzie MD - Last Filed: 03/17/24 23:16> Matthias Inquiry Pt receiving controlled substance: No Vital Signs: 03/17/24 21:06 Temperature 98.8 F Temperature Source Oral Pulse Rate [Right Radial] 75 Respiratory Rate 16 Blood Pressure [Right Arm] 133/77 Blood Pressure Mean [Right Arm] 95 Blood Pressure Source [Right Arm] Automatic Cuff Blood Pressure Position [Right Arm] Sitting 02 Sat by Pulse Oximetry 99 Oxygen Delivery Method Room Air Lab Data Lab Results 03/17/24 21:04: Group A Strep Rapid Negative 03/17/24 21:14: WBC 8.1, RBC 4.25, Hgb 11.8 L, Hct 37.1, MCV 87.3, MCH 27.8, MCHC 31.8, RDW 14.5, Plt Count 267, MPV 12.6 H, Neut % (Auto) 58.4, Lymph % (Auto) 26.6, [place] % (Auto) 10.1 H, Eos % (Auto) 4.1, Baso % (Auto) 0.7, Neut # (Auto) 4.7, Lymph # (Auto) 2.2, [place] # (Auto) 0.8, Eos # (Auto) 0.3, Baso # (Auto) 0.1, Sodium 139, Potassium 4.0, Chloride 105, Carbon Dioxide 23, Anion Gap 15.0, BUN 9, Creatinine 0.90, Estimated Creat Clear 89, Estimated GFR 74, Est GFR ( Amer) 89, Glucose 78, Calcium 9.5, Total Bilirubin 0.1 L, AST 33, ALT 25, Alkaline Phosphatase 61, Total Protein 7.8, Albumin 4.9, Globulin 2.9, Albumin/Globulin Ratio 1.7, TSH 3.54, Free T4 0.79, Serum HCG, Qual Negative Orders (Tests/Meds): ED MEDICATIONS Discontinued Medications Generic Name Dose Route Start Last Admin Trade Name Anne PRN Reason Stop Dose Admin Acetaminophen 1,000 mg 03/17/24 21:02 03/17/24 21:21 Acetaminophen 1,000mg/100ml Vial IV 03/17/24 21:03 1,000 mg ONCE ONE Administration Bacitracin 1 each 03/17/24 21:52 03/17/24 21:54 Bacitracin Oint 0.9gm Udp TP 03/17/24 21:53 Not Given ONCE ONE Iopamidol 75 ml 03/17/24 23:04 03/17/24 23:09 Iopamidol-370 (76%);100ml Bottle IV 03/17/24 23:05 75 ml ONCE ONE Administration Ketorolac Tromethamine 15 mg 03/17/24 23:16 03/17/24 23:20 Ketorolac 30mg/Ml Vial IV 03/17/24 23:17 15 mg ONCE ONE Administration Lidocaine HCl 5 ml 03/17/24 21:02 03/17/24 21:21 Lidocaine 2% 5ml Pf Vial IH 03/17/24 21:03 5 ml ONCE ONE Administration Sodium Chloride 10 ml 03/17/24 23:04 03/17/24 23:08 Sodium Chloride 0.9% 10ml Syr (Rad Only) IV 03/17/24 23:05 10 ml ONCE ONE Administration ORDERS Category Date Time Status CT soft tissue neck w con Stat Cat Scan 03/17/24 21:02 Completed CBC w/Auto Diff [Complete Blood Count Auto Diff] Stat Lab 03/17/24 21:14 Completed CMP [Comprehensive Metabolic Panel] Stat Lab 03/17/24 21:14 Results CRP [C-Reactive Protein] Stat Lab 03/17/24 21:14 Results Free T4 (Free Thyroxine) Stat Lab 03/17/24 21:14 Completed HCG Qualitative, Serum Stat Lab 03/17/24 21:14 Completed Monoscreen (Rapid) Stat Lab 03/17/24 21:14 Received Rapid Strep Scrn Group A [Strep Scrn Group A (Rapid)] Lab 03/17/24 21:04 Completed Stat TSH [Thyroid Stimulating Hormone] Stat Lab 03/17/24 21:14 Results Strep Screen Confirmation Stat Micro 03/17/24 21:04 Received Medical Decision Narrative: In summary patient is a 28-year-old female past medical history described above who presents emergency department for evaluation of subacute loss of voice and neck pain. Patient is hemodynamically stable and nontoxic-appearing upon arrival however has difficulty phonating and ranging her neck in extension. She is able to laterally rotate her neck. She does have tenderness over her anterior neck that is discordant to just a pure uncomplicated laryngitis. Differential includes laryngitis, mononucleosis, mass, soft tissue infection, among others. Workup will be conducted with hematologic labs, CT neck with IV contrast, strep swab, monoscreen. Initial inventions include Tylenol, lidocaine neb. After hematologic labs are back steroids will be administered. Initial work reviewed by me, CBC not resulted yet, CMP is nonactionable, no thyroid derangement hCG negative. Rapid strep negative. CT imaging conducted and pending at time of transfer of care to the oncoming physician, Dr. Mcconnell. <Jodie Mcconnell MD - Last Filed: 03/18/24 00:10> Vital Signs: 03/17/24 21:06 Temperature 98.8 F Temperature Source Oral Pulse Rate [Right Radial] 75 Respiratory Rate 16 Blood Pressure [Right Arm] 133/77 Blood Pressure Mean [Right Arm] 95 Blood Pressure Source [Right Arm] Automatic Cuff Blood Pressure Position [Right Arm] Sitting 02 Sat by Pulse Oximetry 99 Oxygen Delivery Method Room Air Lab Data Lab Results 03/17/24 21:04: Group A Strep Rapid Negative 03/17/24 21:14: WBC 8.1, RBC 4.25, Hgb 11.8 L, Hct 37.1, MCV 87.3, MCH 27.8, MCHC 31.8, RDW 14.5, Plt Count 267, MPV 12.6 H, Neut % (Auto) 58.4, Lymph % (Auto) 26.6, [place] % (Auto) 10.1 H, Eos % (Auto) 4.1, Baso % (Auto) 0.7, Neut # (Auto) 4.7, Lymph # (Auto) 2.2, [place] # (Auto) 0.8, Eos # (Auto) 0.3, Baso # (Auto) 0.1, Sodium 139, Potassium 4.0, Chloride 105, Carbon Dioxide 23, Anion Gap 15.0, BUN 9, Creatinine 0.90, Estimated Creat Clear 89, Estimated GFR 74, Est GFR ( Amer) 89, Glucose 78, Calcium 9.5, Total Bilirubin 0.1 L, AST 33, ALT 25, Alkaline Phosphatase 61, Total Protein 7.8, Albumin 4.9, Globulin 2.9, Albumin/Globulin Ratio 1.7, TSH 3.54, Free T4 0.79, Serum HCG, Qual Negative Orders (Tests/Meds): ED MEDICATIONS Discontinued Medications Generic Name Dose Route Start Last Admin Trade Name Freq PRN Reason Stop Dose Admin Acetaminophen 1,000 mg 03/17/24 21:02 03/17/24 21:21 Acetaminophen 1,000mg/100ml Vial IV 03/17/24 21:03 1,000 mg ONCE ONE Administration Bacitracin 1 each 03/17/24 21:52 03/17/24 21:54 Bacitracin Oint 0.9gm Udp TP 03/17/24 21:53 Not Given ONCE ONE Iopamidol 75 ml 03/17/24 23:04 03/17/24 23:09 Iopamidol-370 (76%);100ml Bottle IV 03/17/24 23:05 75 ml ONCE ONE Administration Ketorolac Tromethamine 15 mg 03/17/24 23:16 03/17/24 23:20 Ketorolac 30mg/Ml Vial IV 03/17/24 23:17 15 mg ONCE ONE Administration Lidocaine HCl 5 ml 03/17/24 21:02 03/17/24 21:21 Lidocaine 2% 5ml Pf Vial IH 03/17/24 21:03 5 ml ONCE ONE Administration Sodium Chloride 10 ml 03/17/24 23:04 03/17/24 23:08 Sodium Chloride 0.9% 10ml Syr (Rad Only) IV 03/17/24 23:05 10 ml ONCE ONE Administration ORDERS Category Date Time Status CT soft tissue neck w con Stat Cat Scan 03/17/24 21:02 Completed CBC w/Auto Diff [Complete Blood Count Auto Diff] Stat Lab 03/17/24 21:14 Completed CMP [Comprehensive Metabolic Panel] Stat Lab 03/17/24 21:14 Results CRP [C-Reactive Protein] Stat Lab 03/17/24 21:14 Results Free T4 (Free Thyroxine) Stat Lab 03/17/24 21:14 Completed HCG Qualitative, Serum Stat Lab 03/17/24 21:14 Completed Monoscreen (Rapid) Stat Lab 03/17/24 21:14 Received Rapid Strep Scrn Group A [Strep Scrn Group A (Rapid)] Lab 03/17/24 21:04 Completed Stat TSH [Thyroid Stimulating Hormone] Stat Lab 03/17/24 21:14 Results Strep Screen Confirmation Stat Micro 03/17/24 21:04 Received Medical Decision Narrative: In summary patient is a 28-year-old female past medical history described above who presents emergency department for evaluation of subacute loss of voice and neck pain. Patient is hemodynamically stable and nontoxic-appearing upon arrival however has difficulty phonating and ranging her neck in extension. She is able to laterally rotate her neck. She does have tenderness over her anterior neck that is discordant to just a pure uncomplicated laryngitis. Differential includes laryngitis, mononucleosis, mass, soft tissue infection, among others. Workup will be conducted with hematologic labs, CT neck with IV contrast, strep swab, monoscreen. Initial inventions include Tylenol, lidocaine neb. After hematologic labs are back steroids will be administered. Initial work reviewed by me, CBC not resulted yet, CMP is nonactionable, no thyroid derangement hCG negative. Rapid strep negative. CT imaging conducted and pending at time of transfer of care to the oncoming physician, Dr. Mcconnell. Mcconnell: Upon my assumption of care patient is stable. I agree with the assessment and plan from Dr. Mckenzie. I reviewed labs which demonstrate CMP nonactionable, test negative, strep negative. CBC was pending as well as CT. Patient reports Toradol works well for her and that ibuprofen is only a problem if she takes it for an extended period of time. Toradol was administered. CBC reviewed demonstrate no leukocytosis, slight anemia with hemoglobin 11.8 is nonactionable at this time, platelets normal. This is reassuring against hematologic cancer and offers reassurance against obvious infectious etiology. CT soft tissue neck personally interpreted does not demonstrate obvious fluid collection, questionable slight thickening anterior to the larynx, and I do not appreciate abnormality of the aortic arch that could potentially be compressing the recurrent laryngeal nerve, radiology read pending. I reviewed radiology read which demonstrates sinus congestion, few reactive lymph nodes but no lymphadenopathy, no acute abnormalities. There does not appear to be an obvious explanation for patient's symptoms on the CT scan. I called [facility] and spoke with the reading radiologist Dr. Avelar. I asked him to specifically look at the aortic arch and he agrees that there is no dilatation, no abnormal notching, no other abnormalities of the arch or other structures in that region. While the study was not specifically directed at assessing the structures, he does not appreciate anything abnormal that he believes could be contributing to her loss of voice. At this time I believe patient is appropriate for discharge. I am prescribing prednisone for 5-day burst and providing ENT referral for follow-up given patient's duration of symptoms. Patient is comfortable with this plan. Patient was given instructions on symptomatic monitoring and management, follow up instructions, and return precautions for the emergency department. Patient indicated understanding and was discharged in stable condition. Critical Care <Glen Mckenzie MD - Last Filed: 03/17/24 23:16> Critical Care Time Critical Care Time: No
--- NOTE | 2024-03-17 21:02 | CT_ITS ---
PROCEDURE INFORMATION: Exam: CT Neck With Contrast Exam date and time: 03/17/2024 11:03 PM Age: 28 years old Clinical indication: Other: Laryngitis x5 weeks, anterior neck severe pain l>r TECHNIQUE: Imaging protocol: Computed tomography of the neck with contrast. Radiation optimization: All CT scans at this facility use at least one of these dose optimization techniques: automated exposure control; mA and/or kV adjustment per patient size (includes targeted exams where dose is matched to clinical indication); or iterative reconstruction. Contrast material: ISOVUE; Contrast volume: 75 ml; Contrast route: IV; COMPARISON: [facility] CT cervical spine wo con 04/04/2018 1:06 PM FINDINGS: Paranasal sinuses: Mild bilateral maxillary sinus and ethmoid air cell mucosal thickening. Partial opacification of both maxillary sinuses. Salivary glands: Normal. Glands are normal in size. Pharynx: Unremarkable. No significant tonsillar enlargement. Prevertebral and retropharyngeal spaces: Unremarkable. Larynx: Unremarkable. Epiglottis is normal. Thyroid: Normal. No enlarged or calcified nodules. Trachea: Visualized trachea is unremarkable. Lungs: Unremarkable as visualized. Lymph nodes: Reactive lymph nodes without lymphadenopathy. Bones/joints: Unremarkable. No acute fracture. Soft tissues: Unremarkable. No significant soft tissue swelling. IMPRESSION: 1. Unremarkable study. 2. Sinus congestion.
[2024-03-17 21:06] VITALS: BP 133/77; PULSE 75; RESP 16; TEMP 37.1; O2SAT 99; BMI 24.8
[2024-03-17] MEDS: ACETAMINOPHEN 1,000MG/100ML VIAL 1000 MG IV (21:21)
[2024-03-17] MEDS: LIDOCAINE 2% 5ML PF VIAL 5 ML IH (21:21)
[2024-03-17 21:31] LABS: Strep Scrn Group A (Rapid) Negative (Negative)
[2024-03-17 22:17] LABS: Albumin Level 4.9 g/dl (3.5-5.0); Chloride 105 mmol/L (98-107); Sodium 139 mmol/L (136-145)
[2024-03-17 22:20] LABS: Alanine Aminotransferase 25 U/L (12-78); Albumin/Globulin Ratio 1.7 (1.1-1.8); Alkaline Phosphatase 61 U/L (38-126); Aspartate Amino Transferase 33 U/L (14-36); Blood Urea Nitrogen 9 mg/dl (7-17); Calcium 9.5 mg/dl (8.4-10.2); Carbon Dioxide 23 mmol/L (22.0-30.0); Creatinine Clearance Estimated 89 mL/min (50-200); Estimated Glomerular Filt Rate 74 ml/min (>60); GFR (African American) 89 ML/MIN (>60); Globulin 2.9 g/dL (1.3-3.2); Glucose 78 mg/dl (74-100); Total Protein,Serum 7.8 g/dl (6.3-8.2)
[2024-03-17 22:27] LABS: Bilirubin,Total 0.1 mg/dl (0.2-1.3)
[2024-03-17 22:42] LABS: Free T4 (Free Thyroxine) 0.79 ng/dl (0.78-2.19)
[2024-03-17 22:54] LABS: Thyroid Stimulating Hormone 3.54 uIU/mL (0.465-4.68)
[2024-03-17 22:56] LABS: HCG Qualitative, Serum Negative (Negative)
[2024-03-17] MEDS: SODIUM CHLORIDE 0.9% 10ML SYR (RAD ONLY) 10 ML IV (23:08)
[2024-03-17] MEDS: IOPAMIDOL-370 (76%);100ML BOTTLE 75 ML IV (23:09)
[2024-03-17] MEDS: KETOROLAC 30MG/ML VIAL 15 MG IV (23:20)
[2024-03-17 23:52] LABS: Basophils # 0.1 K/mm3 (0-0.2); Basophils % 0.7 % (0.1-2.0); Eosinophils # 0.3 K/mm3 (0.0-0.4); Eosinophils % 4.1 % (0.1-12.0); Hematocrit 37.1 % (37.0-47.0); Hemoglobin 11.8 g/dL (12.2-16.2); Lymphocytes # 2.2 K/mm3 (0.7-4.5); Lymphocytes % 26.6 % (10-50); Mean Corpuscular HGB Conc 31.8 g/dL (31.8-35.4); Mean Corpuscular Hemoglobin 27.8 pg (27.0-31.2); Mean Corpuscular Volume 87.3 fl (81-99); Mean Platelet Volume 12.6 fl (7.4-10.4); Monocytes # 0.8 K/mm3 (0.1-1.0); Monocytes % 10.1 % (1.7-9.3); Neutrophils # 4.7 K/mm3 (1.8-7.8); Neutrophils % 58.4 % (37.0-80.0); Platelet Count 267 K/mm3 (142-424); Red Blood Count 4.25 M/mm3 (4.20-5.40); Red Cell Distribution Width 14.5 % (11.5-17.5); White Blood Count 8.1 K/mm3 (4.8-10.8)
[2024-03-18] LABS: Monoscreen (Rapid) Negative (Negative)
[2024-03-18 00:09] VITALS: BP 107/73; PULSE 60; RESP 20; TEMP 37.1; O2SAT 99
[2024-03-18 00:44] LABS: C-Reactive Protein 1.4 mg/L (0-4)
== END 2024-03-18 00:13 | disposition home or self-care (01) ==
PROVIDERS: Emergency Provider Emergency Medicine; PCP Nurse Practitioner
DX: J04.0 Acute laryngitis (principal); M54.2 Cervicalgia; R07.0 Pain in throat; R49.0 Dysphonia; Z72.0 Tobacco use
CPT/HCPCS: 70491; 80053; 84439; 84443; 84703; 85025; 86140; 86318; 87430; 96374; 96375; 99285; J0131; J1885; Q9967

== ENCOUNTER 2024-05-15 13:55 | Outpatient (CLI) | payer OTHER, SELFPAY ==
--- NOTE | 2024-05-15 13:56 | US_ITS ---
PROCEDURE: US TRANSVAGINAL CLINICAL INDICATION: AUB COMPARISON: CT CT ABDOMEN PELVIS WO CON from 06/25/2022 FINDINGS: Transvaginal sonographic images of the pelvis were obtained. UTERUS: 8.1cm x 4.9 cmx 3.6 cm anteverted with a combined endometrial thickness of 4.4mm. LEFT OVARY: 4nxm3wpt6.4cm with a volume of 4.3ml. There are several small peripheral follicles. The largest measures 8.1 mm. RIGHT OVARY: 3cmx 7qoy3la with a volume of 6.4ml. There are several small peripheral follicles. The largest measures 6.9 mm. Both ovaries are seen and appear normal. Doppler flow to both ovaries are seen. There is no fluid in the cul-de-sac. IMPRESSION: 1. Anteverted uterus normal in shape and size. The endometrium is thin. 2. Both ovaries are seen and appear normal. They each contain multiple small follicles. 3. No fluid in the cul-de-sac. Dictated by: Nikita Villa MD 05/15/2024 17:17 Nikita Villa MD in OV 05/15/2024 17:17
== END 2024-05-15 23:59 | disposition home or self-care (01) ==
LOC: RAD 13:56
PROVIDERS: PCP Nurse Practitioner; Visit Provider Nurse Practitioner Obstetrics & Gynecology
DX: N93.9 Abnormal uterine and vaginal bleeding, unspecified (principal)
CPT/HCPCS: 76830

== ENCOUNTER 2024-08-19 20:08 | Emergency (ER) | payer OTHER, SELFPAY ==
--- OUTSIDE RECORDS SUMMARY | 2024-08-19 20:16 | XMS_ITS | Clinical Summary ---
Author Organization [facility] Address [address] [place] [address] Care Team Providers Care [employer] Supervisor Name Role Phone Michael Szymanski MD Primary Care Provider [phone] Allergies Active Allergy Reactions Criticality Noted Date Comments Vancomycin Other - please docum ent in the comment field Low 09/21/2023 Red man syndrome.. Medications HYDROcodone-acet aminophen ([employer]) 5-325 MG tablet Take 1 tablet (5 mg of hydrocodone ) by mouth every 6 (six) hours if needed for severe pain. 12 tablet 09/11/2023 Active ibuprofen 600 MG tablet Take 1 tablet (600 mg) by mouth every 6 (six) hours if needed for mild pain. 12 tablet 09/11/2023 Active amoxicillin (Amoxil) 875 MG tablet Take 1 tablet (875 mg) by mouth 2 (two) times a day. 10 tablet 09/11/2023 Active Social History Tobacco Use Types Packs/Day Years Used Date Smoking Tobacco: Light Smoker Comments Unknown Sex and Gender Information Value Date Recorded Sex Assigned at Not on file Legal Sex Female 7:05 PM EDT Gender Identity Not on file Sexual Orientation Not on file Last Filed Vital Signs Vital Sign Reading Time Taken Comments Blood Pressure 119/52 11/01/2023 2:27 PM EDT Pulse 62 10/19/2023 1:14 PM EDT Temperature - - Respiratory Rate - - Oxygen Saturation 97% 10/19/2023 1:14 PM EDT Inhaled Oxygen Concentration - - Weight 57.6 kg (127 lb) 11/01/2023 2:27 PM EDT Height 160 cm (5' 3 ) 11/01/2023 2:27 PM EDT Body Mass Index 22.5 11/01/2023 2:27 PM EDT Plan of Treatment Health Maintenance Due Date Last Done Comments Dental Oral Exam 1993 Dental Prophylaxis 1993 Dental X-Ray: Bitewings 1993 Dental X-Ray: Full Mouth 1993 [facility]-Depression Screening 1993 [facility]-HIV Screening 1993 [facility]-Hepatitis C Screening 1993 [facility]-Medicare Annual Wellness (AWV) 1993 [facility]-/Child/Adol SDOH Screenings 1993 [facility]-Varicella Vaccines (1 of 2 - 13+ 2-dose series) 2006 HPV Vaccines (1 - 3-dose series) 2008 [facility]- SDOH Screenings 06/16/2011 [facility]-Adult SDOH Screenings 06/16/2011 [facility]-DTaP,Tdap,and Td Vaccines (1 - Tdap) 2012 [facility]-Hepatitis B Vaccines (1 of 3 - 19+ 3-dose series) 2012 [facility]-Pap Smear 2014 [facility]-Cervical Cancer Screening 06/16/2023 [facility]-HPV/Cotest 06/16/2023 [id number] Vaccine ( - 2023- season) 2023 02/17/2021, 01/22/2021 [facility]-Influenza Vaccine (Season Ended) 2024 [facility]-Zoster Vaccines (1 of 2) 06/16/2043 [facility]-HIB Vaccines Aged Out No longer e ligible based on patient's age to complete this topic [facility]-Hepatitis A Vaccines Aged Out No longer eligible based on patient's age to complete this topic [facility]-IPV Vaccines Aged Out No longer e ligible based on patient's age to complete this topic [facility]-Pneumococcal Vaccine: Pediatrics (0 to 5 Years) and At-Risk Patients (6 to 49 Years) Aged Out No longer eligible b ased on patient's age to complete this topic [facility]-Rotavirus Vaccines Aged Out No lo nger eligible based on patient's age to complete this topic Insurance [facility] MEDICARE Care Teams [employer] Services Supervisor Relationship Specialty Start Date End Date Michael Szymanski MD [address] [facility] [address] [place] [id number] PCP - General 07/02/20
--- OUTSIDE RECORDS SUMMARY | 2024-08-19 20:16 | XMS_ITS | Encounter Summary ---
Author Organization Healthcare Address [address] [place] [address] Care Team Providers Care Energy Broker Name Role Phone Michael Szymanski MD Primary Care Provider [phone] Encounter Details Date Type Department Care Team ([facility] st Contact Info) Description 02/04/2024 Telephone [facility] technology sales consultant [facility] [address] [place] [address] [address] [place] [address] Brandy Mora Social History Tobacco Use Types Packs/Day Years Used Date Smoking Tobacco: Light Smoker Comments Unknown Sex and Gender Information Value Date Recorded Sex Assigned at Not on file Legal Sex Female 7:05 PM EDT Gender Identity Not on file Sexual Orientation Not on file documented as of this encounter Plan of Treatment Not on file documented as of this encounter Visit Diagnoses Not on filedocumented in this encounter Additional Health Concerns Assessment Noted Time A Body Mass Index follow-up plan has been documented for the patient 11/09/2023 5:35 PM EDT documented as of this encounter Care Teams Energy Broker Relationship Specialty Start Date End Date Michael Szymanski MD [address] [place] [address] [address] [place] [phone] PCP - General 07/02/20 documented as of this encounter
[2024-08-19 20:17] VITALS: BP 142/85; PULSE 73; RESP 18; TEMP 36.9; O2SAT 100; BMI 23.3
--- NOTE | 2024-08-19 20:23 | XR_ITS ---
PROCEDURE INFORMATION: Exam: XR Left Femur Exam date and time: 08/19/2024 8:54 PM Age: 29 years old Clinical indication: Thigh; Left; Pain since April, no inj TECHNIQUE: Imaging protocol: Radiologic exam of the left femur. Views: 2 views. Total images: 4 COMPARISON: CR XR FEMUR LT 2V 11/07/2023 7:30 PM FINDINGS: Bones/joints: No acute fracture or joint dislocation. No concerning bone lesions or calcifications. Unremarkable joint spaces. Soft tissues: Unremarkable soft tissues. IMPRESSION: Negative left femur.
[2024-08-19] MEDS: ACETAMINOPHEN 500MG TAB 1000 MG PO (20:32)
[2024-08-19 20:44] LABS: Urine Pregnancy, HCG Qual. Negative (Negative)
--- NOTE | 2024-08-19 20:56 | ED_ITS ---
<Statement entered by Radha Cartwright DO - 08/19/24 23:44> I was consulted by the SALINA, and we discussed the complexity of the problems being addressed. I approved the treatment and management plan for this patient's care in the emergency department, thus performing a substantive portion of the medical decision making. Radha Cartwright DO Discharge Plan Disposition Patient Disposition: Home, Self-Care Prescriptions Prescriptions: No Action ferrous sulfate 325 mg (65 mg iron) tablet 325 mg PO DAILY topiramate [Topamax] 25 mg tablet 10 mg PO DAILY Twirla 120-30 mcg/24 hr patch weekly 0RF Twirla 120-30 mcg/24 hr patch weekly 1 patch transdermal WEEKLY Qty: 3 3RF Rx Instructions: apply once weekly for 3 weeks of a 4-week cycle Referrals Follow up/Referrals: Dc Watson DO [Staff Physician, Orthopedics] - See instructions Martha (ED),MICHELLE Arita [Primary Care Provider, Emergency Medicine] - See instructions Activity Restrictions/Add. Instructions Additional Instructions/Restrictions: Today you were evaluated in the emergency department. The imaging of your left thigh is unremarkable for anything acute. Please take opqm-aep-auhzrft acetaminophen and ibuprofen for symptomatic relief. Please follow-up with your PCP tomorrow. You may also call orthopedics for further evaluation. Please return to the ED for worsening of condition. Clinical Impressions Clinical Impression: Left thigh pain Instructions Patient Instructions: DI for Leg Pain Print Language Print Language: Moroccan Discharge ED Provider: Radha Cartwright General Adult HPI General Chief complaint: Extremity Problem,Nontraumatic Stated complaint: Sharp pain left leg,no injury Time Seen by Provider: 08/19/24 20:18 Mode of Arrival: Ambulatory Source of Information: Patient Description of Symptoms (Recalled from ER Triage Doc. by RN): Pt present with left leg pain that she has had since April. Pt kristopher any previous injury. When asked what has changed she stated it has become unbearable. History of Present Illness HPI narrative: patient is a 29-year-old female with no significant PMHx who presents to the ED with complaints of left thigh pain since April. Patient describes the pain as intermittent, denies any injury or trauma to the area. Patient states she is established with PCP however has not seen them for this complaint. Related Data Home Medications ?Medication ?Instructions ?Recorded ?Confirmed ferrous sulfate 325 mg (65 mg 325 mg PO DAILY 08/31/21 05/29/24 iron) tablet topiramate 25 mg tablet (Topamax) 10 mg PO DAILY 08/3105/29/24 Previous Rx's ?Medication ?Instructions ?Recorded levonorgestrel 120 mcg-e.estradiol 1 patch transdermal WEEKLY #3 07/08/24 30 mcg/24 hr weekly transderm patches patch (Twirla) Allergies Allergy/AdvReac Type Severity Reaction Status Date / Time vancomycin (VANCOMYCIN) Allergy Intermediate RED MAN Verified 05/29/24 10:11 SYNDROME ibuprofen (From Motrin IB) Allergy Mild Ulcers Verified 05/29/24 10:11 PFSH PFS Disclaimer: The information contained in this section may have been updated after the patient was seen, as this information can be updated by other users. Medical History Abnormal electrocardiogram [ECG] [EKG] Abnormal EKG Nodule of left lung Dyspnea Surgical History H/O laparoscopy H/O bilateral breast reduction surgery S/P knee surgery Family History Other Family history non-contributory Social History Smoking Status: Never smoker second hand exposure: No alcohol intake: never substance use type: denies use current occupational status: unemployed Travel in the last 8 weeks?: None household members: family housing: house current occupation: [employer] current occupational exposures/hazards: No caffeine: Yes Have you lived/traveled outside US in past 30 days?: No Contact w/someone who lives/traveled outside US past 30 days?: No Exposure to someone with infectious disease in past 14 days?: No Do you have a fever (greater than 100.4 F or 38 C)?: No Have you tested positive for COVID-19?: No Exposed to someone with COVID-19 in past 14 days?: No Do you have a sore throat?: No Do you have a cough?: No Do you have any weakness?: No Do you have any diarrhea?: No Are you experiencing any unusual bleeding?: No Do you have any muscle aches/pain?: No Do you have any abdominal pain?: No Are you experiencing loss of taste or smell?: No Other Medical History Have you received the Flu Vaccine for this season: No Have you received the Pneumonia Vaccine: No ROS Obtained: Yes Systems reviewed as appropriate & no additional complaints except as documented Physical Exam General General appearance: alert and in no apparent distress Head Head exam: atraumatic and normocephalic Eye Eye exam: Present normal appearance and PERRL ENT ENT exam: Present normal exam Neck Neck exam: Present normal inspection Chest Chest inspection: Present normal inspection and symmetric chest wall rise; Absent tenderness Respiratory Respiratory exam: Present normal lung sounds bilaterally Cardiovascular Cardiovascular exam: Present regular rate Abdominal Exam Abdominal exam: Present soft and normal bowel sounds; Absent tenderness Extremities Exam Extremities exam: Present full ROM, tenderness (left lateral thigh tenderness ) and normal capillary refill; Absent edema, joint swelling or calf tenderness Back Exam Back exam: Present normal inspection and full ROM Neurological Exam Neurological exam: Present alert and oriented X3 Psychiatric Psychiatric exam: Present normal affect and normal mood Skin Skin exam: Present warm and dry Medical Decision Making Medical Records Screening: Per USPSTF and CDC recommendations, given the prevalence of disease in our region, it is our hospital?s policy to screen for HIV and viral Hepatitis for all patients aged 18 and over and those with ongoing risk factors. Matthias Inquiry Pt receiving controlled substance: No Vital Signs: 08/19/24 20:17 Temperature 98.4 F Temperature Source Oral Pulse Rate [Left] 73 Respiratory Rate 18 Blood Pressure [Right Arm] 142/85 H Blood Pressure Mean [Right Arm] 104 Blood Pressure Source [Right Arm] Automatic Cuff Blood Pressure Position [Right Arm] Sitting 02 Sat by Pulse Oximetry 100 Oxygen Delivery Method Room Air Lab Data Lab Results 08/19/24 20:35: Urine HCG, Qual Negative Orders (Tests/Meds): ED MEDICATIONS Discontinued Medications Generic Name Dose Route Start Last Admin Trade Name Freq PRN Reason Stop Dose Admin Acetaminophen 1,000 mg 08/19/24 20:23 08/19/24 20:32 Acetaminophen 500mg Tab PO 08/19/24 20:24 1,000 mg ONCE ONE Administration ORDERS Category Date Time Status Femur XR left 2 views [XR femur LT 2V] Stat Exams 08/19/24 20:23 Ordered Urine , HCG Qual. Stat Lab 08/19/24 20:35 Completed Medical Decision Narrative: In summary, patient is a 29-year-old female with no significant PMHx who presents to the ED with complaints of left thigh pain since April. Patient describes the pain as intermittent, denies any injury or trauma to the area. Patient states she is established with PCP however has not seen them for this complaint. Patient states nothing makes the pain better and nothing makes the pain worse. She denies taking anything for pain prior to arrival to the ED. Denies fever, chills, body aches, chest pain, shortness of breath, abdominal pain, nausea, vomiting. Differential diagnosis include septic arthritis, fracture, bone lesion, among others. Upon initial evaluation in the ED patient is alert, oriented and cooperative. She is hemodynamically stable. Quadricep muscle tenderness noted on the lateral aspect. No groin pain no tenderness. Discussed with patient we will proceed with acetaminophen and imaging. My informal interpretation of the x-ray is nothing acute. Discussed with patient that due to no acute findings in the ED, she can follow- up with her PCP for further evaluation. I will also place the orthopedic number on her discharge papers. We discussed return precautions to the ED. Patient was hemodynamically stable and verbalized understanding. Critical Care Critical Care Time Critical Care Time: No
[2024-08-19 21:07] VITALS: BP 140/84; PULSE 69; RESP 20; TEMP 36.9; O2SAT 100
== END 2024-08-19 21:07 | disposition home or self-care (01) ==
PROVIDERS: Nurse Practitioner; Emergency Provider Emergency Medicine; PCP Nurse Practitioner
DX: M79.652 Pain in left thigh (principal)
CPT/HCPCS: 73552; 81025; 99283